=== PATIENT | female | born 1930 | race Caucasian/White ===

== ENCOUNTER 2016-07-01 14:06 | Inpatient (IN) | payer MEDICARE, OTHER ==
[~2016-07-01] VITALS: Ht 158.8 cm; Wt 54.8 kg
[2016-07-01 14:23] VITALS: BP 138/70; RESP 16; O2SAT 97
[2016-07-01 15:16] LABS: BASOPHILS % (AUTO) 0.7 % (0-3); EOSINOPHILS % (AUTO) 1.1 % (0-5); MONOCYTES % (AUTO) 5.6 % (4-12); Mean Corpuscular Hemoglobin 28.7 pg (27.0-35.0); Mean Corpuscular Volume 85.8 fL (81-100); NEUTROPHILS % (AUTO) 68.8 % (40-74); Platelet Count 141 bil/L (150-400)
[2016-07-01 16:00] LABS: Magnesium 2.2 mg/dL (1.6-2.6)
[2016-07-01 16:01] LABS: TROPONIN T 0.046 ug/L (0.0-0.011)
--- NOTE | 2016-07-01 16:51 | ED.REPORT ---
HPI-General Illness Date of Service Jul 01, 2016 ED Provider: Maged Candelaria MD The patient is an 86 year old female with history of atrial fibrillation on Coumadin, who presents to the emergency department complaining of dysphagia that has been worsening over the last 3 weeks. She has been evaluated by her PCP 4 times since onset. Her symptoms have continued to worsen. She has also noticed shortness of breath, nausea, vomiting, chills, fatigue, and recent weight loss. She denies chest pain or fever. She has an appointment with an ENT specialist Dr. Broderick on Monday. Nursing Notes Stated Complaint: TROUBLE SWALLOWING- SENT BY [facility] Chief Complaint: ENT & Mouth Nursing Notes Reviewed: Yes Allergies: Coded Allergies: atenolol (Verified Allergy, Severe, shortness of breath and angina, ) able to take tenormin prednisone (Verified Allergy, Severe, hallucinations,dementia, 07/01/16) pregabalin (Verified Allergy, Severe, all side effects listed, 07/01/16) abciximab (Verified Allergy, Intermediate, rash, 07/01/16) Scheduled Atenolol (Tenormin) 25 Mg Tablet 25 MG PO DAILY Atorvastatin (Lipitor) 10 Mg Tab 10 MG PO HS Cyanocobalamin (Vitamin B-12) (Vitamin B-12) 1,000 Mcg Tablet 1,000 MCG PO DAILY Digoxin (Digoxin) 250 Mcg Tablet 250 MCG PO QPM Folic Acid/Multivits-Min/Lut (Multi-Vitamin Gummies) 1 Each Tab.chew 1 EACH PO DAILY Furosemide (Furosemide) 40 Mg Tablet 200 MG PO DAILY Levothyroxine (Levothyroxine) 50 Mcg Tablet 50 MCG PO QAM Potassium Chloride ER (Potassium Chloride ER) 10 Meq Tablet 20 MEQ PO DAILY TAKE WITH FOOD Ramipril (Ramipril) 5 Mg Capsule 5 MG PO DAILY Ranitidine (Ranitidine) 150 Mg Capsule 150 MG PO BIDWM Warfarin Sodium (Warfarin Sodium) 1 Mg Tablet 0.5 MG PO DIRECTED Take 1/2 tablet daily x 2 days, then skip one day, then daily again for 2 days Scheduled PRN Hydrocodone-Acetaminophen 5-325 mg (Hydrocodone-Acetaminophen 5-325 mg) 1 Each Tablet 1-2 TABLET PO Q8H PRN PRN For Pain Ondansetron (Ondansetron) 4 Mg Tablet 4-8 MG PO Q4H PRN PRN For Nausea/Vomiting General Time Seen by MD: 16:49 Chief Complaint Other (dysphagia) Hx Obtained From: Patient Arrived By: Walk-in Sudden in Onset?: No Onset Occurred: More than a week ago... Symptom Duration: Since onset Quality: Painful Severity: Current: Mild Severity: Maximum: Mild Recent Healthcare: No recent hospitalization, Recent doctor visit Similar Sx Previous: No Past Medical History Past Medical History Reports: Atrial fibrillation Past Surgical History Reports: CABG Family History Noncontributory Smoking History Unknown if Ever Smoker Social History Other Social History: Good social support, Local resident Ambulatory Status Independent Review of Systems Full Review of Systems Constitutional: Reports: Chills, Fatigue, Weakness - generalized, Denies: Fever Respiratory: Reports: Shortness of breath Cardiovascular: Denies: Chest pain GI: Reports: Dysphagia, Nausea, Vomiting Neurologic: Reports: Weakness Complete sys rev & neg: except as marked. Physical Exam Vital Signs Vital Signs Date Time Temp Pulse Resp B/P Pulse Ox O2 Delivery O2 Flow Rate FiO2 07/01/16 14:23 36.0 64 16 138/70 97 Room Air Initial VS: Reviewed Head / Eyes: Atraumatic, Normocephalic, PERRL Abdomen / GI: Soft, Non-tender, No guarding, No rebound, No distention Lymphatic: No lymphadenopathy Extremities: Vascular intact, Neuro intact Skin: Warm, Dry, No cyanosis Neurologic: Alert, Oriented, Nonfocal Psychiatric: Mood/affect normal, Behavior normal, Normal thought content General/Constitutional: Awake, Alert Appearance / Presentation: Positive: Pale ENT: Airway patent Mouth: Positive: Mucous membranes dry Neck: Supple, No meningismus, Full range of motion, No swelling, Non-tender, No masses Respiratory / Chest: Atraumatic, Breath sounds NL, No respiratory distress, No rales, No rhonchi, No wheezing Well healed sternotomy scar. Cardiovascular: Heart rate NL, Regular rhythm, Heart sounds NL, Cap refill not delayed, Peripheral circulation NL Lower Extremity / Pelvis / MS: Neurologic intact, Vascular intact Trace pitting edema. No unilateral calf swelling or tenderness. Interpretation & Diagnostics Lab Results Interpretation Result Diagram: 07/01/16 1512 07/01/16 2036 Test 07/01/16 15:12 07/01/16 15:13 White Blood Count 4.5th/mm3 (3.8-10.1) Red Blood Count 3.38mil/mm3 (3.90-5.20) Hemoglobin 9.7g/dL (12.0-15.6) Hematocrit 29.0% (35.0-46.0) Mean Corpuscular Volume 85.8fL (81-100) Mean Corpuscular Hemoglobin 28.7pg (27.0-35.0) Mean Corpuscular Hemoglobin Concent 33.4% (32.0-37.0) Red Cell Distribution Width 15.6% (12.3-15.4) Platelet Count 141bil/L (150-400) Neutrophils (%) (Auto) 68.8% (40-74) Lymphocytes (%) (Auto) 23.8% (14-46) Monocytes (%) (Auto) 5.6% (4-12) Eosinophils (%) (Auto) 1.1% (0-5) Basophils (%) (Auto) 0.7% (0-3) Prothrombin Time 16.6sec (8.1-12.5) Prothromb Time International Ratio 1.54ratio Hold Blue Top Tube Received (Received) Lactic Acid Level 1.0mmol/L (0.4-2.0) Pro-B-Type Natriuretic Peptide 5392pg/mL (0-738) Hold Red Top Tube Received (Received) Hold Cornell Top Tube Received (Received) Digoxin Level 2.1nG/mL (0.9-2.0) ECG Interpretation ECG Interpretation: Atrial fibrillation with a rate of 64 bpm LBBB No prior available for comparison Time: 15:13 Interpreted by: ED physician X-Ray Chest Interpretation Chest Xray Interpretation: IMPRESSION: No acute cardiopulmonary findings. Dictated by: Cynthia Magallanes M.D. on 07/01/2016 at 17:25 Re-Eval/Medical Decision Med Decision/Clinical Course The patient is an 86 year old female with history of atrial fibrillation on Coumadin, who presents to the emergency department complaining of dysphagia that has been worsening over the last 3 weeks. She has been evaluated by her PCP 4 times since onset. Her symptoms have continued to worsen. She has also noticed shortness of breath, nausea, vomiting, chills, fatigue, and recent weight loss. She denies chest pain or fever. She has an appointment with an ENT specialist Dr. Broderick on Monday. Upon arrival patient is afebrile with stable vital signs though appears significantly dehydrated, generally unwell and cachectic. CXR: Obtained, reviewed and interpreted by myself shows no evidence of acute infiltrates, effusions or pneumothorax. Cardiac and mediastinal silhouette normal. No bony or soft tissue abnormalities. LABS: No leukocytosis with WBC 4.5, anemic hct 29, Na 131, K 5.7, BUN 90, creat 5.06, transaminases are nl , positive troponin of .045. CXR negative Given patient's profound dehydration and evidence of acute renal failure I initiated IV fluid resuscitation with 2 L of normal saline. While her potassium is somewhat elevated we will observe closely as we replace fluids and I do not see any indication to immediately administer calcium gluconate and her potassium lowering medications. CT scan of the abdomen and pelvis was obtained as below: 1. No hydronephrosis, nephrolithiasis, hydroureter, or ureterolithiasis. 2. No acute intra-abdominal findings. Normal appendix. 3. Cholelithiasis. No findings to suggest choledocholithiasis or acute cholecystitis. 4. Simple appearing right renal cyst which is incompletely characterized in the absence of contrast. 5. Subcentimeter right mid pole hyperdense renal cyst. Cystic neoplasm cannot be excluded. If further characterization is warranted, consider renal ultrasound. 6. Aortic atherosclerosis. Cause of patient's acute renal failure is not entirely clear. I suspect that this is likely largely related to severe dehydration though additional causes cannot immediately be ruled out. I see no evidence of hydronephrosis that would explain the elevation of her kidney function tests. Of note troponin is elevated though this is difficult to interpret in the setting of the patient's renal failure. Troponins will be trended and at this time EKG demonstrates no STEMI. Patient discussed with admitting hospitalist and transferred in stable condition for further workup and management. Source of Hx: Old records, Family Time of Eval: 17:07 Re-Evaluation/Progress Note: Discussed plan for admission. All questions were addressed. Consultation : Referral / Consult Name: Blaine Maciel MD Consulted With: Hospitalist Requested Call at: 17:05 Call Returned at: 17:48 Bead Filler: Will see patient, Agrees with eval, Agrees with plan, Accepts admit Counseled Regarding: Diagnosis, Lab results, Need for admission Discharge & Departure Primary Impression: Acute renal failure Acute renal failure type: unspecified Qualified Code: N17.9 - Acute kidney failure, unspecified Additional Impressions: Elevated troponin Severe dehydration Dysphagia Dysphagia type: unspecified Qualified Code: R13.10 - Dysphagia, unspecified Weight loss Failure to thrive Failure to thrive age range: in adult Qualified Code: R62.7 - Adult failure to thrive Hyperkalemia Generalized weakness Elevated BUN Elevated serum creatinine Disposition: ADMITTED TO HOSPITAL Discharge Condition All VS Reviewed: Yes Condition: Stable Referrals: Sridhar Mckeon MD (PCP) Cisco Broderick MD Crit Care Except Billable Proc Time Spent: 135-164 minutes Services Performed: Patient management by me, Time spent at bedside, Reviewing test results, Reviewing imaging, Discussing patient care, Documentation in record, Time with fam/surrogate Scribe Attestation Portions of this note were transcribed by Lauren Tolentino. I, Dr. Candelaria personally performed the history, physical exam and medical decision-making; I reviewed and confirmed the accuracy of the information in the transcribed note. Signed by: Itzel Berger, 07/01/2016 and 1800. copies to: Sridhar Mckeon MD; Cisco Broderick MD, Beck O MD Jul 01, 2016 16:51 Lauren Tolentino Jul 01, 2016 17:06
[2016-07-01] MEDS ORDERED: 0.9% Sodium Chloride 1,000 ML IV ONE (17:05)
[2016-07-01] MEDS ORDERED: Alum-Mag Hydrox-Simeth 30 mL Suspension PO PRN (17:05)
--- NOTE | 2016-07-01 17:28 | DRSVH ---
PROCEDURE: X-RAY CHEST, TWO VIEWS ([id number]) INDICATIONS: sob TECHNIQUE: 2 views of the chest were acquired. COMPARISON: None. FINDINGS: Surgical changes and devices: Patient is status post median sternotomy and valvular replacement. Lungs and pleura: No pleural effusions or pneumothorax. Lungs are clear. Mediastinum: Mediastinal contours are normal. Heart size is normal. Bones and chest wall: No suspicious bony abnormalities. Soft tissues appear unremarkable. IMPRESSION: No acute cardiopulmonary findings. Dictated by: Cynthia Magallanes M.D. on 07/01/2016 at 17:25 Approved by: Cynthia Magallanes M.D. on 07/01/2016 at 17:27
[2016-07-01] MEDS: Ondansetron 2 mg/mL 2 mL Inj IVPUSH PRN (17:32)
[2016-07-01] MEDS ORDERED: RANI150C4 PO (17:47)
[2016-07-01] MEDS ORDERED: LEVO50TA6 PO (17:47)
[2016-07-01] MEDS ORDERED: RAMI5CAP PO (17:47)
[2016-07-01] MEDS ORDERED: WARF1TAB6 PO (17:47)
[2016-07-01] MEDS ORDERED: POTA10TA12 PO (17:47)
[2016-07-01] MEDS ORDERED: ATRV10T PO (17:47)
[2016-07-01] MEDS ORDERED: DIGO250T72 PO (17:47)
[2016-07-01] MEDS ORDERED: HYDR-4003 PO (17:47)
[2016-07-01] MEDS ORDERED: ONDA-53 PO (17:47)
[2016-07-01] MEDS ORDERED: ATEN-154 PO (17:49)
[2016-07-01] MEDS: 0.9% Sodium Chloride 1,000 ML IV ONE ×2 (17:50→23:00)
[2016-07-01] MEDS ORDERED: CYAN10008 PO (17:51)
[2016-07-01] MEDS ORDERED: FOLI-89 PO (17:51)
[2016-07-01] MEDS ORDERED: FURO40TA4 PO (18:02)
[2016-07-01 18:05] VITALS: BP 179/51; PULSE 57; RESP 16; O2SAT 100
[2016-07-01 18:19] LABS: INR 1.54 ratio
--- NOTE | 2016-07-01 18:25 | DRSVH ---
PROCEDURE: CT KUB ([id number]) INDICATIONS: assess for hydronephrosis, renal mass TECHNIQUE: Noncontrast 5 mm thick sections acquired from the diaphragms to the symphysis. 5 mm thick coronal an d sagittal reformats were then performed. For radiation dose reduction, the following was used: aut omated exposure control, adjustment of mA and/or kV according to patient size. COMPARISON: FINDINGS: Image quality: Excellent. Lung bases: Lung bases are clear. Heart size is normal. Urinary system: The kidneys are symmetric in size. Cortical scarring is present at the upper pole of the left kidney suggesting prior infarct or infection. There is trace bilateral perinephric fat stran ding. No hydronephrosis. No nephrolithiasis. A low density exophytic mass is present of the lower bernie e of the right kidney. Some of the renal pyramids are slightly hyperdense raising the suspicion for m edullary nephrocalcinosis. A 6 mm in diameter hyperdense cyst is present within the midpole the right kidney (series 2, image 19). This was not visualized on the comparison study dated 11/12/09. No hydroureter or ureterolithiasis. The uterus is nonvisualized and may be surgically absent. Other solid organs: Liver and spleen are normal in size. A 10 mm an 11 mm calcified gallstone are pr esent within the gallbladder fundus. No gallbladder wall thickening or pericholecystic fluid. Pancrea s is normal in contours. No adrenal nodules. Peritoneum and bowel: Unenhanced bowel loops demonstrate normal wall thickness and caliber. The adolfo endix is thin walled. There are scattered sigmoid diverticula. No evidence for diverticulitis. No antonina e fluid or air. Nodes and vessels: No retroperitoneal or mesenteric adenopathy by size criteria. Aorta and inferior vena cava are normal in caliber. There are scattered atheromatous calcifications throughout the aor ta and iliac arteries bilaterally. Abdominal wall: No ventral hernias. Pelvis: No free pelvic fluid. No inguinal hernias or adenopathy. Bones: No suspicious bony lesions. No vertebral body compression fractures. IMPRESSION: 1. No hydronephrosis, nephrolithiasis, hydroureter, or ureterolithiasis. 2. No acute intra-abdominal findings. Normal appendix. 3. Cholelithiasis. No findings to suggest choledocholithiasis or acute cholecystitis. 4. Simple appearing right renal cyst which is incompletely characterized in the absence of contrast. 5. Subcentimeter right mid pole hyperdense renal cyst. Cystic neoplasm cannot be excluded. If further characterization is warranted, consider renal ultrasound. 6. Aortic atherosclerosis. Dictated by: Cynthia Magallanes M.D. on 07/01/2016 at 18:14 Approved by: Cynthia Magallanes M.D. on 07/01/2016 at 18:23
[2016-07-01] MEDS ORDERED: Polyethylene Glycol (PEG) 17 Gm Powder PO PRN (18:50)
[2016-07-01] MEDS ORDERED: Senna-Docusate 8.6-50 mg Tablet PO PRN (18:50)
[2016-07-01 19:05] VITALS: BP 185/65; PULSE 61; RESP 19; O2SAT 99
--- NOTE | 2016-07-01 20:24 | NUR ---
HR: pt admitted in the ER, arrived to [facility] [place] at apprx 1900. finished IV bolus. post void residual 125mls X1. tele SR maura dips down to the 30's for a few seconds, mostly 50's to 60's. will continue to monitor.
[2016-07-01 20:51] VITALS: BP 162/60; PULSE 52; RESP 18; O2SAT 100
[2016-07-01 21:31] LABS: Magnesium 2.1 mg/dL (1.6-2.6); Phosphorus 4.8 mg/dL (2.5-4.9)
--- NOTE | 2016-07-01 21:33 | PCM.HPMED ---
Subjective Date of Service Jul 01, 2016 Primary Provider: Admitting Physician: Blaine Maciel MD Primary Care Physician: Sridhar Mckeon MD Attending Physician: Blaine Maciel MD Admit Status: From the Emergency Department, Full Admit Chief Complaint: Dysphagia/3 weeks Poor oral intake/3 weeks Rectal bleeding/1 day History of Present Illness: 86-year-old lady with past medical history of CAD status post CABG and stent, afib on warfarin ,gout, neuropathy came to emergency room due to dysphagia and poor oral intake of 3 weeks. She states she has dysphagia for the last 3 weeks in which food and medications will get stuck in her throat ( she points to mid neck) . Drinking water seems to help. She has been having poor oral intake for the last 3 weeks and no taking any medications for last 2 days. She was seen by her PCP 3 times and was treated for GERD but no improvement.no Imaging done outpatient. She states she sometimes regurgitates food that was stuck in her throat. She was referred to ENT and has an appointment with Dr Broderick on Monday She had an episode of rectal bleeding yesterday. Bleeding was fresh blood. She has on and off fresh rectal bleeding for the Last 1 year. Last colonoscopy was 10 years ago. ED course : Initial vitals unremarkable but high BP afterwards. Exam unremarkable except signs of dehydration. Labs remarkable for acute kidney failure with cr 5.06,BUN 90,bicarbonate 13,k 5.7 ,Na 131,EKG a fib at 64 with LBBB unchanged from prior ekg,trop 0.046, anemia Hb 9.7 1 L NS given,CT KUB negative for hydronephrosis Hospitalist service requested for admission for acute kidney failure Review of Systems: A comprehensive review of systems performed, pertinent positives and negatives included in history of present illness Allergies Coded Allergies: atenolol (Verified Allergy, Severe, shortness of breath and angina, ) able to take tenormin prednisone (Verified Allergy, Severe, hallucinations,dementia, 07/01/16) pregabalin (Verified Allergy, Severe, all side effects listed, 07/01/16) abciximab (Verified Allergy, Intermediate, rash, 07/01/16) Home Medications DID NOT TAKE ANY OF HER MEDICATION FOR THE LAST 2 DAYS DUE TO DYSPHAGIA Synthroid 50 MCG daily Lasix 40 mg by mouth daily, gabapentin 100 mg a day KCl 10 mg by mouth daily Digoxin 0.25 mg daily,last dose 2 days ago Pravastatin 10 mg by mouth daily ramipril ranitidine recently started warfarin PMH CAD status post CABG and stent, afib on warfarin , gout, neuropathy Surgical History Hysterectomy CABG 1979 Cardiac Stent 1999 Resection of ileium for hyperlipidemia Family History Reviewed and unremarkable Social History Hx Alcohol Use: Yes (''rarely"- a glass of wine/month) Hx Substance Use: No Smoking Status: Former Smoker (quit 1974) Exam Vital Signs Vital Sign - Last Date Time Temp Pulse Resp B/P Pulse Ox O2 Delivery O2 Flow Rate FiO2 07/01/16 20:51 36.3 52 18 162/60 100 Room Air Exam Gen. patient is lying comfortably in hospital bed HEENT: Head is normocephalic atraumatic, dry tongue and buccal mucosa Lungs clear to auscultation bilaterally Heart regular rate and rhythm without murmurs gallops or rubs Abdomen soft nontender without hepatosplenomegaly Extremities pulses are present dorsalis pedis posterior tibialis and radial. tSkin is warm and dry there are no rashes, Psych alert and oriented to person place and time Neuro cranial nerves II through XII are grossly intact Lymph: There is no lymphadenopathy appreciated in the cervical supra infraclavicular regions : no cuevas Lab and Diagnostics Result Diagram: 07/01/16 1512 07/01/16 1512 X-Rays, CTs and MRIs PROCEDURE: CT KUB ([id number]) INDICATIONS: assess for hydronephrosis, renal mass TECHNIQUE: Noncontrast 5 mm thick sections acquired from the diaphragms to the symphysis. 5 mm thick coronal and sagittal reformats were then performed. For radiation dose reduction, the following was used: automated exposure control, adjustment of mA and/or kV according to patient size. COMPARISON: FINDINGS: Image quality: Excellent. Lung bases: Lung bases are clear. Heart size is normal. Urinary system: The kidneys are symmetric in size. Cortical scarring is present at the upper pole of the left kidney suggesting prior infarct or infection. There is trace bilateral perinephric fat stranding. No hydronephrosis. No nephrolithiasis. A low density exophytic mass is present of the lower pole of the right kidney. Some of the renal pyramids are slightly hyperdense raising the suspicion for medullary nephrocalcinosis. A 6 mm in diameter hyperdense cyst is present within the midpole the right kidney (series 2, image 19). This was not visualized on the comparison study dated 11/12/09. No hydroureter or ureterolithiasis. The uterus is nonvisualized and may be surgically absent. Other solid organs: Liver and spleen are normal in size. A 10 mm an 11 mm calcified gallstone are present within the gallbladder fundus. No gallbladder wall thickening or pericholecystic fluid. Pancreas is normal in contours. No adrenal nodules. Peritoneum and bowel: Unenhanced bowel loops demonstrate normal wall thickness and caliber. The appendix is thin walled. There are scattered sigmoid diverticula. No evidence for diverticulitis. No free fluid or air. Nodes and vessels: No retroperitoneal or mesenteric adenopathy by size criteria. Aorta and inferior vena cava are normal in caliber. There are scattered atheromatous calcifications throughout the aorta and iliac arteries bilaterally. Abdominal wall: No ventral hernias. Pelvis: No free pelvic fluid. No inguinal hernias or adenopathy. Bones: No suspicious bony lesions. No vertebral body compression fractures. IMPRESSION: 1. No hydronephrosis, nephrolithiasis, hydroureter, or ureterolithiasis. 2. No acute intra-abdominal findings. Normal appendix. 3. Cholelithiasis. No findings to suggest choledocholithiasis or acute cholecystitis. 4. Simple appearing right renal cyst which is incompletely characterized in the absence of contrast. 5. Subcentimeter right mid pole hyperdense renal cyst. Cystic neoplasm cannot be excluded. If further characterization is warranted, consider renal ultrasound. 6. Aortic atherosclerosis. Dictated by: Cynthia Magallanes M.D. on 07/01/2016 at 18:14 12-lead ECG afib at 64 with LBBB Assessment & Plan 86-year-old lady with past medical history of CAD status post CABG and stent, afib on warfarin ,gout, neuropathy came to emergency room due to dysphagia and poor oral intake of 3 weeks. # Acute kidney failure,poa -Due to poor intake due to dysphagia -1L Ns given in ED,will give 1 more NS then 150ml/h -CT KUB negative for hydronephrosis -hold ramipril ,laisx ,kcl and digoxin -may consider nephrology consult in am if no significant improvement of kidney function -monitor I/O # hyperkalemia/metabolic acidosis -due to above -mx as above -no ekg changes of hyperkalemia # Digoxin toxicity,acute -due to #1 -dig level 2.1 -last dig dose 2 days ago,she has PVCs and HR in 50's -watch out for arrythmia -no indication for Digibind for now -monitor electrolytes closely and replete # Dysphagia,subacute,poa -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 -npo -barium swallow in am -may consider GI consult for EGD and +/- colonoscopy after barium study #Elevated troponin -likley due to RICKY,denies chest pain ,no ekg changes # lower Gi bleed -probably due to hemorroids -consider GI consult in am # anemia of blood loss -due to above # CAD s/p CABG and stents -hold po meds for now given npo # AFib on warfarin -hold warfarin given npo and lower GI bleed -hold dig given toxicity # hypothyroidism -TFT WNL -hold synthroid discussed code she says she has living will and she is DNR/DNI names her daughter La as POA tel [phone] Patient admitted under inpatient status with expected length of stay > 2 midnights for severity of present symptoms, complexities of treatment plan and risk for adverse events Time spent 60 minutes copies to: Sridhar Mckeon MD, Melaku MD Jul 01, 2016 21:33
[2016-07-01 21:39] LABS: TROPONIN T 0.049 ug/L (0.0-0.011)
[2016-07-01 22:18] LABS: APPEARANCE,URINE HAZY (CLEAR,HAZY); COLOR,URINE STRAW (YELLOW); OCCULT BLOOD,URINE TRACE (NEGATIVE); UROBILINOGEN,URINE NORMAL (NORMAL)
[2016-07-02] VITALS (12 sets, daily range): BP systolic 139–156; BP diastolic 47–70; PULSE 4–66; RESP 13–19; O2SAT 95–99
[2016-07-02] MEDS: 0.9% Sodium Chloride 1,000 ML IV SCH ×2 (00:26→01:30)
[2016-07-02] MEDS: cefTRIAXone Inj 1,000 MG in Dextrose 5% Minibag Plus 50 ML IV SCH ×2 (00:41→21:56)
[2016-07-02 06:22] LABS: BASOPHILS % (AUTO) 0.6 % (0-3); EOSINOPHILS % (AUTO) 3.1 % (0-5); MONOCYTES % (AUTO) 8.5 % (4-12); Mean Corpuscular Hemoglobin 28.7 pg (27.0-35.0); Mean Corpuscular Volume 87.3 fL (81-100); NEUTROPHILS % (AUTO) 58.2 % (40-74); Platelet Count 121 bil/L (150-400)
[2016-07-02 06:55] LABS: Magnesium 2.1 mg/dL (1.6-2.6)
[2016-07-02] MEDS: Dextrose 5% 0.45% NaCl 1,000 ML IV SCH ×3 (07:58→18:03)
--- NOTE | 2016-07-02 09:17 | PCM.PNMED ---
Subjective Date of Service Jul 02, 2016 Subjective - Pt seen and examined this morning. AAO x 3. Not in acute distress - c/o mild generalized weakness. - No acute events over night. Exam Vital Signs Vital Sign - Last Date Time Temp Pulse Resp B/P Pulse Ox O2 Delivery O2 Flow Rate FiO2 07/02/16 08:47 36.5 64 19 149/70 98 Room Air Intake and Output 07/01/16 07/01/16 07/02/16 Cumulative From/Thru 15:00 23:00 07:00 07/01/16 14:23 - 07/02/16 06:42 Intake Total 1593 ml 1593 ml Output Total 450 ml 450 ml Balance 1143 ml 1143 ml Intake Oral 0 ml 0 ml IV Total 1593 ml 1593 ml Output Urine Total 450 ml 450 ml Exam Gen. patient is lying comfortably in hospital bed HEENT: Head is normocephalic atraumatic, dry tongue and buccal mucosa Lungs clear to auscultation bilaterally Heart regular rate and rhythm without murmurs gallops or rubs Abdomen soft nontender without hepatosplenomegaly Extremities pulses are present dorsalis pedis posterior tibialis and radial. tSkin is warm and dry there are no rashes, Psych alert and oriented to person place and time Neuro cranial nerves II through XII are grossly intact Lymph: There is no lymphadenopathy appreciated in the cervical supra infraclavicular regions IVs and Medications Medications Reviewed: Medications were reviewed in detail Lab and Diagnostics Result Diagram: 07/02/16 0550 07/02/16 0550 X-Rays, CTs and MRIs PROCEDURE: CT KUB ([id number]) INDICATIONS: assess for hydronephrosis, renal mass TECHNIQUE: Noncontrast 5 mm thick sections acquired from the diaphragms to the symphysis. 5 mm thick coronal and sagittal reformats were then performed. For radiation dose reduction, the following was used: automated exposure control, adjustment of mA and/or kV according to patient size. COMPARISON: FINDINGS: Image quality: Excellent. Lung bases: Lung bases are clear. Heart size is normal. Urinary system: The kidneys are symmetric in size. Cortical scarring is present at the upper pole of the left kidney suggesting prior infarct or infection. There is trace bilateral perinephric fat stranding. No hydronephrosis. No nephrolithiasis. A low density exophytic mass is present of the lower pole of the right kidney. Some of the renal pyramids are slightly hyperdense raising the suspicion for medullary nephrocalcinosis. A 6 mm in diameter hyperdense cyst is present within the midpole the right kidney (series 2, image 19). This was not visualized on the comparison study dated 11/12/09. No hydroureter or ureterolithiasis. The uterus is nonvisualized and may be surgically absent. Other solid organs: Liver and spleen are normal in size. A 10 mm an 11 mm calcified gallstone are present within the gallbladder fundus. No gallbladder wall thickening or pericholecystic fluid. Pancreas is normal in contours. No adrenal nodules. Peritoneum and bowel: Unenhanced bowel loops demonstrate normal wall thickness and caliber. The appendix is thin walled. There are scattered sigmoid diverticula. No evidence for diverticulitis. No free fluid or air. Nodes and vessels: No retroperitoneal or mesenteric adenopathy by size criteria. Aorta and inferior vena cava are normal in caliber. There are scattered atheromatous calcifications throughout the aorta and iliac arteries bilaterally. Abdominal wall: No ventral hernias. Pelvis: No free pelvic fluid. No inguinal hernias or adenopathy. Bones: No suspicious bony lesions. No vertebral body compression fractures. IMPRESSION: 1. No hydronephrosis, nephrolithiasis, hydroureter, or ureterolithiasis. 2. No acute intra-abdominal findings. Normal appendix. 3. Cholelithiasis. No findings to suggest choledocholithiasis or acute cholecystitis. 4. Simple appearing right renal cyst which is incompletely characterized in the absence of contrast. 5. Subcentimeter right mid pole hyperdense renal cyst. Cystic neoplasm cannot be excluded. If further characterization is warranted, consider renal ultrasound. 6. Aortic atherosclerosis. Dictated by: Cynthia Magallanes M.D. on 07/01/2016 at 18:14 12-lead ECG afib at 64 with LBBB Assessment & Plan 86-year-old lady with past medical history of CAD status post CABG and stent, afib on warfarin ,gout, neuropathy came to emergency room due to dysphagia and poor oral intake of 3 weeks. 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 - npo - barium swallow in am - may consider GI consult for EGD and +/- colonoscopy after barium study # Elevated troponin - likley due to RICKY,denies chest pain ,no ekg changes # lower Gi bleed - probably due to hemorrhoids - Hct down to 23.4 - Will transfuse 1 PRBC # anemia of blood loss - due to above # CAD s/p CABG and stents - hold po meds for now given npo # AFib on warfarin - hold warfarin given npo and lower GI bleed - hold dig given toxicity # hypothyroidism - TFT WNL - hold synthroid Code: DNR / DNI daughter La as POA tel [phone] Pain Evaluation: Adequate Pain Control VTE Prophylaxis: Sub-Q Heparin (Unfractionated) Resuscitation Status: DNR/DNI:Do Not Resuscitate/Intubate Carlos Collins MD Jul 02, 2016 09:17
[2016-07-02] MEDS ORDERED: 0.9% Sodium Chloride 250 ML IV ONE (09:20)
--- NOTE | 2016-07-02 12:13 | NUR ---
Social Work-initial assessment: Data:See initial assessment. Pt is a 86 y/o female who was admitted on 07/01/16 for acute renal failure per H&P. Pt's insurance is [employer] and PCP is Sridhar Mckeon MD. EMR Reviewed. SW met with pt at bedside to discuss discharge planning, SW role explained. Pt is alert and oriented x3. Pt resides at home with her grandson Anthony where she remains independent with basic ADLs. Pt's daughter lives close by as well. Pt does not drive and uses a fww at baseline. Pt has no HH or SNF history. Pt feels like she has enough help at home. Pt has no prison care insurance or VA benefits. SW discussed DPOA/ advanced directive, pt states she has completed this, SW encouraged a copy to be brought into the hospital. PT to have barium swallow completed, Per RN notes, pt has been up SBA in room. Pt informed SW that she is not going to be going to her PCP, but her daughters are already working on getting a new one set up for her. Pt does not anticipate any discharge needs. SW to follow for HH. Pt's family to provide transport home. SW provided phone number and plan on white board in room. SW will continue to follow. Assessment:pt who is independent at baseline. Plan:Pt to likely discharge home with grandson when medically stable. R/O HH services. SW will continue to follow. MARCOS Haas Addendum: 07/02/16 at 1218 by WILLIE ERVIN Amended: Links added.
--- NOTE | 2016-07-02 15:11 | NUR ---
NUTRITION ASSESSMENT: ASSESS:86 YO female admitted with acute renal failure related to dysphagia and poor oral intake for past 3 weeks. She states that food and medications get stuck in her throat ( she points to mid-neck) . Drinking water seems to help. She has been having poor oral intake for the last 3 weeks and not taking any medications for last 2 days. She was seen by her PCP 3 times and was treated for GERD, with no improvement. She states she sometimes regurgitates food that gets stuck in her throat. She was referred to ENT and has an appointment with Dr Broderick on Monday. She had an episode of rectal bleeding yesterday. Bleeding was fresh blood. She has on and off fresh rectal bleeding for the last year. Barium swallow ordered and is pending. PMHx:CAD status post CABG and stent, A-fib on warfarin, gout, neuropathy, hypothyroid. DIET:NPO. LABS: CO2 12, BUN 84, Cr 4.51, Alb 3.8., MEDICATIONS: Synthroid. NUTRITION FOCUSED PHYSICAL ASSESSMENT: GI symptoms / stool: No stool reported.Kilo: 16. Skin Integrity: No issues reported. ANTHROPOMETRICS: Current Wt: 50.4 kgBMI: 19.0 kg/m2. IBW: 51.1 kg (98.6% IBW) ESTIMATED NEEDS (DEHYDRATION, RICKY): Calories: 1260 - 1764 kcal (25 - 35 kcal / kg BW) Protein: 30 - 40 g protein (0.6 - 0.8 g / kg BW) Fluid: Approx. 1260 mL (25 mL / kg BW) NUTRITION DIAGNOSIS: 1) Inadequate oral intake related to chewing / swallowing difficulties, as evidenced by inability to tolerate oral intake past 3 weeks, barium swallow ordered and is pending. INTERVENTION: 1) Once diet advanced, will add supplements to trays. MONITOR/EVALUATE: Diet advance / tolerance, PO intake, labs, GI/nutrition status. Follow up per high nutrition risk guidelines.
--- NOTE | 2016-07-02 15:19 | NUR ---
Blood Transfusion Patient had a 1 unit PRBC at 1212. Patient showed no reaction. Vitals stable after 15 min. Transfusion ended at 1505. Vital stable after transfusion. No reaction.
[2016-07-02] MEDS: Ondansetron 2 mg/mL 2 mL Inj IVPUSH PRN (18:03)
[2016-07-02] MEDS: Heparin 5,000 Unit/mL Inj SUBQ SCH (20:02)
[2016-07-03] VITALS (8 sets, daily range): BP systolic 148–160; BP diastolic 55–69; PULSE 41–73; RESP 10–18; O2SAT 68–98
--- NOTE | 2016-07-03 00:38 | NUR ---
transfer: pt transferred to [facility] room 2030. technical support internship notified RN of pauses. Hospitalist notified, no new orders. pt's HR 24 for a few seconds, CCU charge, and hospitalist notified. initially pt stated she felt "fine", soon she started to stated she felt "funny", and she was not able to lay flat. pt transferred to room 2030, face to face report given to Mehnaz Weber on pcc.
--- NOTE | 2016-07-03 00:41 | NUR ---
Transfer to [facility] Patient noted on tele to be bradycardic in the 40s and 50s with frequent PVCs and bigeminy. Pauses up to 5 seconds. Patient brought to [facility] 2030 at 0005; report received at bedside. Second IV line started, external pacer pads placed. Monitoring via MP30. Patient denies chest pain; some shortness of breath present although patient states this has improved since earlier this evening. Dr. Zarate to bedside to assess patient. Continue close monitoring.
[2016-07-03] MEDS: Dextrose 5% 0.45% NaCl 1,000 ML IV SCH ×2 (01:16→08:50)
--- NOTE | 2016-07-03 06:27 | NUR ---
Tele Patient continues to be bradycardic through remainder of shift. A-fib with rates in the 40s and 50s and frequent PVCs. No further pauses or episodes of severe bradycardia. Patient's daughter at bedside. COntinue to monitor.
[2016-07-03] MEDS: Ondansetron 2 mg/mL 2 mL Inj IVPUSH PRN ×5 (06:52→23:43)
[2016-07-03] MEDS: Heparin 5,000 Unit/mL Inj SUBQ SCH ×2 (08:30→20:30)
[2016-07-03 09:36] LABS: BASOPHILS % (AUTO) 0.2 % (0-3); EOSINOPHILS % (AUTO) 3.4 % (0-5); Mean Corpuscular Hemoglobin 28.7 pg (27.0-35.0); Mean Corpuscular Volume 86.8 fL (81-100); NEUTROPHILS % (AUTO) 68.5 % (40-74); Platelet Count 95 bil/L (150-400)
[2016-07-03 09:51] LABS: Magnesium 1.8 mg/dL (1.6-2.6)
--- NOTE | 2016-07-03 14:50 | DRSVH ---
[facility] [address] [place] [address] Echocardiogram Report Name: GURWINDER BONE Turner e: 07/03/2016 Height: 63 in Hospital Exam Location: [facility] Weight: 119 lb Gender: Female BSA: 1.6 m2 : 1930 Age: 86 yrs BP: 148/65 mmHg Reason For Study: DYSRHYTHMIA, SOB Ordering Physician: Performed By: Sierra Zelaya Interpretation Summary The patient was in atrial fibrillation with controlled ventricular rate during the exam. The left ventricle is normal in size. Left ventricular wall thickness is mildly increased. The ejection fraction is estimated to be 50-55%. There is a mild dyssynchronous contraction pattern, consistent with a conduction abnormality. There is apical severe hypokinesis. This is unchanged compared to the previous study. The right ventricle is normal in size and function. The right ventricular systolic pressure is estimated at 58 mmHg assuming a right atrial pressure of 15 mm Hg. The IVC is dilated (diameter is greater than 2.1 cm) and it collapses less than 50% with a sniff. This suggests a high right atrial pressure of 15 mm Hg. Both atria are severely dilated. A secundum type atrial septal defect is present. The atrial septal defect is small. There is moderate to severe mitral regurgitation. There is an eccentric jet of mitral regurgitation that is directed posterior- laterial. This is unchanged compared to the previous study. Multiple liver cysts are noted. No other echocardiographic abnormalities seen. Procedure: A two-dimensional transthoracic echocardiogram with color flow and Doppler was performed. The study quality was technically adequate. Comparison is made with the echocardiogram of 09-09-15. The patient was in atrial fibrillation with controlled ventricular rate during the exam. Left Ventricle: The left ventricle is normal in size. Left ventricular wall thickness is mildly increased. The ejection fraction is estimated to be 50- 55%. There is a mild dyssynchronous contraction pattern, consistent with a conduction abnormality. There is apical severe hypokinesis. This is unchanged compared to the previous study. Right Ventricle: The right ventricle is normal in size and function. Atria: Both atria are severely dilated. Doppler evidence suggests a left to right interatrial shunt. A secundum type atrial septal defect is present. The atrial septal defect is small. Mitral Valve: The mitral valve leaflets appear mildly thickened, but open well. There is mild mitral annular calcification. There is moderate to severe mitral regurgitation. There is an eccentric jet of mitral regurgitation that is directed posterior-laterial. This is unchanged compared to the previous study. Aortic Valve: The aortic valve is trileaflet. The aortic valve is slightly calcified. The aortic valve opens well. No aortic regurgitation is present. Tricuspid Valve: The tricuspid valve leaflets are thin and pliable. There is moderate tricuspid regurgitation. The right ventricular systolic pressure is estimated at 58 mmHg assuming a right atrial pressure of 15 mm Hg. Pulmonic Valve: The pulmonic valve leaflets are thin and pliable; valve motion is normal. There is a trace or physiologic amount of pulmonic regurgitation. Great Vessels: The aortic root is normal size. The dimensions of the ascending aorta are normal. The pulmonary artery is normal size. The IVC is dilated (diameter is greater than 2.1 cm) and it collapses less than 50% with a sniff. This suggests a high right atrial pressure of 15 mm Hg. Pericardium/ Pleura There is no pericardial effusion. There is no pleural effusion. Multiple liver cysts are noted. MMode/2D Measurements & Calculations LVIDd: 4.9 cm LA dimension: 4.9 cm RA long axis LVOT diam: 2.0 cm LVIDs: 3.7 cm AoV Opening FS: 24.3 % LA A2 area: 31.0 cm RA area EPSS: 1.1 cm LA A4 area: 27.6 cm Ao root diam IVSd: 1.2 cm LA length (vol) : 26.9 cm LVPWd: 1.1 cm RA vol asc Aorta Diam LA vol: 104.4 ml : 89.8 ml LA vol index RA Ao Arch Diam (Prox : 57.9 mm/ Trans): 2.9 cm : 67.3 ml/m2 RVDd major : 5.7 cm LV juarez. diameter/BSA LV sys. diameter/BSA (cm/m^2): 3.1 (cm/m^2): 2.4 Doppler Measurements & Calculations Ao V2 max MV E max hua MV E/A: 2.5 TR max hua : 161.2 cm/sec : 95.2 cm/sec Med Peak E' Hua : 325.9 cm/sec Ao max PG MV A max hua TR max PG : 10.4 mmHg : 38.6 cm/sec E/E' med: 13.8 : 42.6 mmHg Ao mean PG MV P1/2t: 45.2 msec Lat Peak E' Hua PA V2 max MR ERO: 0.17 cm2 : 104.4 cm/sec LVOT Max Hua E/E' lat: 6.0 PA mean PG : 107.3 cm/sec E/e' average: 9.9 DURGA(I,D): 1.8 cm PA Accel Time sev ratio: 0.61 : 0.09 sec MV P1/2t max hua Ao V2 mean LV V1 max PG MR flow rate : 113.5 cm/sec Ao V2 VTI: 41.5 cm LV V1 VTI: 25.1 cm: 99.5 cm3/sec MVA(P1/2t): 4.9 cm2 MR PISA radius DURGA(V,D): 2.0 cm2 PA V2 mean DURGA indexed to BSA : 73.8 cm/sec (cm^2/m^2): 1.2 Reading Physician:02:49 PM
[2016-07-03] MEDS: Sodium Bicarb 8.4% Inj 150 MEQ in Dextrose 5% 1,000 ML IV SCH (15:49)
--- NOTE | 2016-07-03 16:26 | PCM.PNMED ---
Subjective Date of Service Jul 03, 2016 Subjective Patient reports that she is feeling better this morning. She denies SOB, chest pain, abdominal pain, and headache. She continues to have intermittent nausea but no vomiting. She has gotten up to the bathroom and states that she feels pretty good on her feet. Her swallow continues to be problematic for her and she does not have much appetite between her dysphagia and her nausea. Overnight, patient transferred down from [facility] to [facility] due to sustained bradycardia. Telemetry monitoring placed in the room. Exam Vital Signs Vital Sign - Last Date Time Temp Pulse Resp B/P Pulse Ox O2 Delivery O2 Flow Rate FiO2 07/03/16 15:31 36.5 64 10 156/63 68 Room Air Intake and Output 07/02/16 07/02/16 07/03/16 Cumulative From/Thru 15:00 23:00 07:00 07/01/16 14:23 - 07/03/16 06:55 Intake Total 1506 ml 1740 ml 4839 ml Output Total 650 ml 200 ml 1300 ml Balance 856 ml 1540 ml 3539 ml Intake Oral 0 ml 0 ml 0 ml IV Total 1162 ml 1740 ml 4495 ml Packed Cells 344 ml 344 ml Output Urine Total 650 ml 200 ml 1300 ml # Bowel Movements 0 0 Exam General: patient is laying comfortably in hospital bed, no acute distress HEENT: Head is normocephalic atraumatic, dry tongue and buccal mucosa, no oral thrush appreciated; PERRLA, EOMI, sclera anicteric Lungs clear to auscultation bilaterally Heart regular rate and rhythm without murmurs gallops or rubs Abdomen soft, nontender, nondistended, with normoactive bowel tones Extremities: Moderate non-pitting edema present in both lower extremities Pulses are present - dorsalis pedis posterior tibialis and radial. Skin is warm and dry there are no rashes. Psych: alert and oriented to person, place and time Neuro: cranial nerves are grossly intact, able to move all extremities grossly, normal speech : no cuevas IVs and Medications Medications Reviewed: Medications were reviewed in detail Lab and Diagnostics Result Diagram: 07/03/1651907/03/16519 X-Rays, CTs and MRIs PROCEDURE: CT KUB IMPRESSION: 1. No hydronephrosis, nephrolithiasis, hydroureter, or ureterolithiasis. 2. No acute intra-abdominal findings. Normal appendix. 3. Cholelithiasis. No findings to suggest choledocholithiasis or acute cholecystitis. 4. Simple appearing right renal cyst which is incompletely characterized in the absence of contrast. 5. Subcentimeter right mid pole hyperdense renal cyst. Cystic neoplasm cannot be excluded. If further characterization is warranted, consider renal ultrasound. 6. Aortic atherosclerosis. Dictated by: Cynthia Magallanes M.D. on 07/01/2016 at 18:14 Cardiac Echo Impressions Interpretation Summary The patient was in atrial fibrillation with controlled ventricular rate during the exam. The left ventricle is normal in size. Left ventricular wall thickness is mildly increased. The ejection fraction is estimated to be 50-55%. There is a mild dyssynchronous contraction pattern, consistent with a conduction abnormality. There is apical severe hypokinesis. This is unchanged compared to the previous study. The right ventricle is normal in size and function. The right ventricular systolic pressure is estimated at 58 mmHg assuming a right atrial pressure of 15 mm Hg. The IVC is dilated (diameter is greater than 2.1 cm) and it collapses less than 50% with a sniff. This suggests a high right atrial pressure of 15 mmHg. Both atria are severely dilated. A secundum type atrial septal defect is present. The atrial septal defect is small. There is moderate to severe mitral regurgitation. There is an eccentric jet of mitral regurgitation that is directed posterior- laterial. This is unchanged compared to the previous study. Multiple liver cysts are noted. No other echocardiographic abnormalities seen. Reading Physician:02:49 PM Assessment & Plan Patient is an 86-year-old female with a history of CAD status post CABG and stent, afib on warfarin, gout, neuropathy. She presented to [facility] due to dysphagia and poor oral intake of 3 weeks. Admitted for evaluation and management of RICKY. Hospital day #3 1. Acute kidney failure, present on admission, ongoing. - Most likely due to poor intake secondary to dysphagia. - Continue IV fluids at 100 ml/hr. - Dr. Portillo of nephrology has seen the patient and we appreciate her input. - Continue to monitor BMP. 2. Digoxin toxicity, acute, present on admission. - Likely secondary to her renal failure and fluid depleted status. - Dig level 2.1at admission. Holding digoxin at this time. - Will continue to follow lab value. - Continue telemetry. 3. Dysphagia, subacute, present on admission. - Consider pharyngeal pouch or esophageal mass. - Keep patient NPO at this time. - Barium swallow ordered and pending for tomorrow (07/04/16) AM. - If abnormality identified will consult GI for possible upper endoscopy. - Antiemetic available PRN nausea. 4. Elevated troponin, acute, present on admission. - Likely due to RICKY. - Continue telemetry. - Patient asymptomatic and will not continue to follow the lab value. Low threshold to repeat if patient has chest pain. 5. Possible lower GI bleed, acute, present on admission. - Concern for hemorrhoids. No other notable source of bleeding. - Has received 1 unit PRBC's during this admission. - Continue to monitor CBC. 6. Anemia secondary to lower GI bleed, acute, present on admission. - Treatment as above in #5. 7. CAD s/p CABG and stents - Holding her home medications including ASA, atorvastatin. 8. Atrial fibrillation on chronic anticoagulation, presume stable. - Holding anticoagulation due to concerns of lower GI bleed. - Holding digoxin secondary to toxicity. - Continue telemetry. 9. Hypothyroidism, chronic, presume stable. - Holding home synthroid as patient is NPO. - Antacid available PRN. - Tylenol available PRN mild pain, fever. - Melatonin available PRN insomnia. Disposition: awaiting further evaluation and determination of need for more invasive intervention such as upper endoscopy or esophageal surgery. Anticipate a few more days of admission. Pain Evaluation: Adequate Pain Control VTE Prophylaxis: Sub-Q Heparin (Unfractionated) VTE Mechanical Devices: Intermittant Pneumatic CD Resuscitation Status: DNR/DNI:Do Not Resuscitate/Intubate Attending Statement The patient was seen and examined together with Dr. Estevez on 07/03/2016 and I agree with the history, exam and plan as outlined in the note above. . Jackie Estevez DO Jul 03, 2016 16:26 César Bledsoe MD Jul 04, 2016 09:06
--- NOTE | 2016-07-03 17:05 | CONS ---
[address] [address] CONSULTATION REPORT PATIENT: GURWINDER BONE : 1930 MR#: [id number] ADMIT: 07/01/2016 JOB ID: [id number] DATE OF SERVICE: REQUESTING PHYSICIAN: César Bledsoe MD REASON FOR CONSULTATION: Management of abnormal kidney function. CHIEF COMPLAINT: Progressive weakness and difficulty swallowing. PRESENT ILLNESS: This is a very pleasant, 86-year-old, lady with significant past medical history of coronary artery disease status post CABG 37 years ago, chronic atrial fibrillation who presented to the hospital with a complaint of difficulty swallowing, poor oral intake and weakness. The patient started feeling sick over the past two months. She has had progressive difficulty swallowing. The symptoms worsened over the past three weeks also. She felt that the food and medications get stuck in her throat at the substernal area. The patient had lost at least 10 pounds over the past two months. Despite having poor oral intake, she remains taking all of her medications including Lasix, digoxin, potassium supplement, ramipril, atenolol and ranitidine. The patient was not able to swallow her pills two days prior to the admission. She has made the appointment to see the ENT on Monday. Patient endorsed she had an episode of rectal bleed one day prior to the admission. She has had intermittent bright red blood per rectum. She is not aware of having kidney disease. She came in with a BUN of 90, creatinine of 5.06. She denies using NSAIDs or Tylenol. The CAT scan of the abdomen did not show any nephrolithiasis or hydronephrosis. She received IV fluid, D5 half normal saline, 150 cc/hour. Her BUN and creatinine slowly came down to 63 and 3.4, respectively. The patient found to have gram-negative rods in the urine. However, she has no history of dysuria or hematuria. Per Dr. Bledsoe, she will have barium swallow tomorrow. PAST MEDICAL HISTORY: 1. Coronary artery disease status post CABG 37 years ago. 2. Hypertension. 3. Chronic atrial fibrillation. 4. Hypothyroid. 5. Dyslipidemia. 6. Gout. 7. Neuropathy. PAST SURGICAL HISTORY: 1. Status post CABG in 1979. 2. Status post cardiac stenting in 1999. 3. Hysterectomy. FAMILY HISTORY: No kidney disease in the family. SOCIAL HISTORY: She is a former smoker. Quit smoking in 1974. Denies current use of alcohol, tobacco, or illicit drugs. ALLERGIES: 1. ATENOLOL. 2. PREDNISONE. 3. PREGABALIN. 4. ABCIXIMAB. REVIEW OF SYSTEMS: A 14-point review of systems was performed. PHYSICAL EXAM: Vitals: Temperature 36.6, pulse 64, respiratory rate 16, blood pressure 160/67, O2 sat 98% on room air. General appearance: Chronically ill-looking, frail appearance. HEENT: Mild pallor. No icteric sclera. Dry mucous membranes. Atraumatic. PERRLA. Mild JVD. No lymphadenopathy. No thyroid enlargement. Heart: Regular rhythm. Normal S1, S2. No murmurs, rubs, or gallops. Lungs: Clear to auscultation bilaterally. No wheezing. No rhonchi. Good air entry. Abdomen is soft, active bowel sounds. Nontender. Nondistended. No hepatosplenomegaly. Extremities: No edema, cyanosis or clubbing of the fingers. Pedal pulses 2+. Skin: No rashes. No excoriations. LABORATORY: Sodium 138, potassium 4.0, chloride 109, bicarb 11. BUN 36, creatinine 3.49, glucose 178, calcium 8.3, magnesium 1.8. Troponin 0.066. Albumin 3.3, hemoglobin 8.5, INR 1.54. Urine specific gravity 1.015, pH 5.0, RBC 3-10, WBC , digoxin level 2.1. Lactic acid 1.0. Echocardiogram was done this morning pending for the results. Chest x-ray showed no acute cardiopulmonary findings. CT of the abdomen showed no hydronephrosis. No kidney stones. No hydroureter, positive for cholelithiasis, no evidence of acute cholecystitis, right renal cyst noted. Subcentimeter right mid pole hyperdense renal cyst. Aortic atherosclerosis. ASSESSMENT: 1. Acute kidney injury. Unknown baseline serum creatinine. She presented with a BUN and creatinine of 90 and 5.06 after IV fluid hydration. Her serum creatinine came down to 3.49. Of note, the patient has had difficulty swallowing poor oral intake over the past two months. She had lost at least 10 pounds. Despite having poor oral intake, she was taking diuretics and antihypertensive medications up until two days prior to the admission. Of note, the patient was also taking ramipril. The etiology of acute kidney injury is rather multifactorial including prerenal azotemia, possibly component of acute tubular necrosis. 2. Hyperkalemia secondary to renal insufficiency, metabolic acidosis, possible digoxin toxicity, medication-induced (ramipril). 3. Anion gap metabolic acidosis likely due to uremia. Her lactate level was 1.0. 4. Progressive dysphagia, need to rule out malignancy. 5. Normocytic anemia with underlying disease of chronic rectal bleed. 6. Underlying disease of coronary artery disease status post coronary artery bypass graft. 7. Chronic atrial fibrillation. 8. Hypothyroid. 9. Suspected urinary tract infection, positive gram-negative carrol over 100,000 CFU. PLANS: 1. Per renal standpoint, will start patient on bicarb drip, continue to hold ramipril. We will check urine protein/creatinine ratio and urine electrophoresis. 2. Check urine eosinophils. 3. Repeat BMP in am. Thank you for the consultation. We will monitor along with you. LARISSAD
--- NOTE | 2016-07-03 17:25 | NUR ---
Cardiac Patient remains in Afib rate in the 50-60s with bigeminal PVCs. No further episodes of pauses this shift. Patient on MP30 for close monitoring.
[2016-07-04] VITALS (8 sets, daily range): BP systolic 124–160; BP diastolic 48–88; PULSE 55–78; RESP 15–18; O2SAT 95–98
[2016-07-04] MEDS: Sodium Bicarb 8.4% Inj 150 MEQ in Dextrose 5% 1,000 ML IV SCH ×2 (03:53→16:17)
[2016-07-04 05:41] LABS: BASOPHILS % (AUTO) 0.3 % (0-3); EOSINOPHILS % (AUTO) 2.1 % (0-5); MONOCYTES % (AUTO) 6.4 % (4-12); Mean Corpuscular Hemoglobin 28.4 pg (27.0-35.0); Mean Corpuscular Volume 84.3 fL (81-100); Platelet Count 117 bil/L (150-400)
[2016-07-04 06:19] LABS: Magnesium 1.4 mg/dL (1.6-2.6); Phosphorus 2.6 mg/dL (2.5-4.9); Unsaturated Iron Binding 188.5 ug/dL
--- NOTE | 2016-07-04 06:45 | NUR ---
Stools/Strict NPO Pt has been to [facility] 4 times with urine/stool mix each time. Pt has also been incontinent of stool on pad in underwear each of these 4 times. The pt's stool is loose and has raj blood in it. Pt's H/H from this AM labs is 8.5/25.7. Pt has remained strict NPO throughout the shift and has been provided frequent oral care. Pt does get nausea and responds well to 8mg zofran IVP. The pt says that the zofran takes the edge off of the nausea but does not completely resolve it.
[2016-07-04] MEDS: Ondansetron 2 mg/mL 2 mL Inj IVPUSH PRN ×3 (08:26→20:37)
[2016-07-04] MEDS: Heparin 5,000 Unit/mL Inj SUBQ SCH (08:30)
--- NOTE | 2016-07-04 10:15 | DRSVH ---
PROCEDURE: X-RAY BARIUM SWALLOW ESOPHAGUS ([id number]) INDICATIONS: DYSPHAGIA COMPARISON: None. FINDINGS: Function: Mild esophageal dysmotility. No elicited gastroesophageal reflux. Morphology: Air-contrast images demonstrate normal mucosal morphology. Single contrast views show n o esophageal strictures, extrinsic mass effects, or diverticula. Limited images of the stomach demon strate normal appearance. Small reducible hiatal hernia. The attending physician was personally pres ent in the room during the examination. IMPRESSION: Esophageal dysmotility and small reducible hiatal hernia. Dictated by: Kevin CONROY Interpreted: Jessica Mendoza MD on 07/04/2016 at 10:14 Transcribed by: CATHY on 07/04/2016 at 10:15 Approved by: Jessica Mendoza M.D. on 07/04/2016 at 16:49
--- NOTE | 2016-07-04 10:46 | NUR ---
Barium Swallow pt ordered for barium swallow evaluation. pt aware. pt alert and oriented. pt transfered to wheelchair with sba, ra, IVF. departed unit at about 0900. accessibility lift technician informed. pt returned to room 2030 at about 0950. accessibility lift technician informed. care continues.
--- NOTE | 2016-07-04 14:08 | NUR ---
Nausea pt continues to report continuous nausea. no emesis. prn zofran 8mg ivp given with adequate results. care continues.
--- NOTE | 2016-07-04 14:22 | NUR ---
NUTRITION FOLLOW UP: ASSESS: 86 YO F admitted with acute renal failure related to dysphagia and poor oral intake for past 3 weeks. Pt has been NPO X 3 days. Barium swallow today. PMHx: CAD status post CABG and stent, A-fib on warfarin, gout, neuropathy, hypothyroid. DIET: NPO. LABS: BUN 45, Cr 2.92, Glu 131, Ca 8.4 MEDICATIONS: Synthroid. GI: 3 BM 07/04. SKIN: No issues reported. ANTHROPOMETRICS: Current Wt: 54.2 kg, BMI: 21.5kg/m2. IBW: 51.1 kg (98.6% IBW) ESTIMATED NEEDS (RICKY): Calories: 0274-0990 kcal/day (25-35 kcal/kg BW) Protein: 30-40 g/day (0.6-0.8 g/kg BW) Fluid: Approx. 1260 mL (25 mL/kg BW) NUTRITION DIAGNOSIS: 1) Inadequate oral intake related to chewing / swallowing difficulties, as evidenced by inability to tolerate oral intake past 3 weeks, barium swallow ordered and is pending.--PERSISTS. INTERVENTION: 1) Will await timely advancement of diet. MONITOR/EVALUATE: Diet advance, NPO status, labs, GI/nutrition status. Follow per high nutrition risk guidelines.
--- NOTE | 2016-07-04 14:54 | PCM.PNNEPH ---
Subjective Date of Service Jul 04, 2016 Subjective The patient was seen in her room and her care was discussed both with the patient and the patient's daughter. I will also review the patient's chart. I strongly suspect that she has a component of chronic kidney disease which is recently exacerbated due to dehydration in the form of acute kidney injury. As she has been hydrated her function has slowly improved Today. In the last 24 hours her intake and output were 3160 in and 1300 out. Her blood pressures have averaged 140-180 range. Otherwise she denies any chest pain, shortness of breath, cough, wheezing or vomiting. She is continuing to have some ongoing diarrhea. This morning her sodium is 139, potassium 3.8, chloride 105, bicarbonate is 17, BUN and creatinine were 45 and 2.97. Her parathyroid hormone level was elevated at 376 which is consistent more with some chronic kidney disease. Her transferrin saturation is 8%. Exam Vital Signs Vital Sign - Last Date Time Temp Pulse Resp B/P Pulse Ox O2 Delivery O2 Flow Rate FiO2 07/04/16 11:29 36.6 71 15 156/62 98 Room Air Intake and Output 07/03/16 07/03/16 07/04/16 Cumulative From/Thru 15:00 23:00 07:00 07/01/16 14:23 - 07/04/16 06:13 Intake Total 1420 ml 1064 ml 7323 ml Output Total 1100 ml 750 ml 3150 ml Balance 320 ml 314 ml 4173 ml Intake Oral 0 ml 0 ml 0 ml IV Total 1420 ml 1064 ml 6979 ml Packed Cells 344 ml Output Urine Total 1100 ml 2400 ml Urine/Stool Mix 750 ml 750 ml # Voids 3 3 # Bowel Movements 3 3 Exam HEENT examination is remarkable for pale sclera. Neck is supple without adenopathy thyromegaly or jugular venous distention. Lungs are clear to auscultation. Heart was regular and rhythmical with a soft systolic murmur. Abdomen is soft without any tenderness rebound guarding masses or hepatosplenomegaly. Extremities do not reveal evidence of any clubbing cyanosis or edema. Skin turgor slightly diminished there is no evidence of any rashes. Lab and Diagnostics Result Diagram: 07/04/1651407/04/16514 X-Rays, CTs and MRIs PROCEDURE: CT KUB IMPRESSION: 1. No hydronephrosis, nephrolithiasis, hydroureter, or ureterolithiasis. 2. No acute intra-abdominal findings. Normal appendix. 3. Cholelithiasis. No findings to suggest choledocholithiasis or acute cholecystitis. 4. Simple appearing right renal cyst which is incompletely characterized in the absence of contrast. 5. Subcentimeter right mid pole hyperdense renal cyst. Cystic neoplasm cannot be excluded. If further characterization is warranted, consider renal ultrasound. 6. Aortic atherosclerosis. Dictated by: Cynthia Magallanes M.D. on 07/01/2016 at 18:14 Cardiac Echo Impressions Interpretation Summary The patient was in atrial fibrillation with controlled ventricular rate during the exam. The left ventricle is normal in size. Left ventricular wall thickness is mildly increased. The ejection fraction is estimated to be 50-55%. There is a mild dyssynchronous contraction pattern, consistent with a conduction abnormality. There is apical severe hypokinesis. This is unchanged compared to the previous study. The right ventricle is normal in size and function. The right ventricular systolic pressure is estimated at 58 mmHg assuming a right atrial pressure of 15 mm Hg. The IVC is dilated (diameter is greater than 2.1 cm) and it collapses less than 50% with a sniff. This suggests a high right atrial pressure of 15 mmHg. Both atria are severely dilated. A secundum type atrial septal defect is present. The atrial septal defect is small. There is moderate to severe mitral regurgitation. There is an eccentric jet of mitral regurgitation that is directed posterior- laterial. This is unchanged compared to the previous study. Multiple liver cysts are noted. No other echocardiographic abnormalities seen. Reading Physician:02:49 PM Plan Impression Impression #1 dehydration secondary to diarrhea. #2 acute on chronic kidney injury secondary to #1 #3 hypomagnesemia and #4 hypertension with hypertensive heart disease. Extensive nephrosclerosis #5 deficiency anemia #6 hyper parathyroidism secondary to chronic kidney disease. Recommendations #1 I would like to stop her proton pump inhibitor. I will also discontinue her IV fluid and continue to closely follow her intake, output, and laboratory values. Plan The patient will continue hyperbaric treatments. Will return () for treatment #() Manoj Langford DO Jul 04, 2016 14:54
--- NOTE | 2016-07-04 20:04 | PCM.PNMED ---
Subjective Date of Service Jul 04, 2016 Subjective overnight: Patient developed bright bloody diarrhea overnight with some noted bowel incontinence. today: The patient states that the diarrhea has bright red blood but it is not large amounts. She states that she has a history of hemorrhoids in the past, however she has not been diagnosed by a doctor, she simply assumes because after her years ago she was told that she had hemorrhoids. She denies any pain on wiping her bottom. She states that her hemorrhoids have been progressively worse over the last year. The patient states that thirty years ago she had a small bowel resection which took her appendix too. Exam Vital Signs Vital Sign - Last Date Time Temp Pulse Resp B/P Pulse Ox O2 Delivery O2 Flow Rate FiO2 07/04/16 03:41 36.4 58 18 148/48 95 Room Air Intake and Output 07/03/16 07/03/16 07/04/16 Cumulative From/Thru 15:00 23:00 07:00 07/01/16 14:23 - 07/04/16 06:13 Intake Total 1420 ml 1064 ml 7323 ml Output Total 1100 ml 750 ml 3150 ml Balance 320 ml 314 ml 4173 ml Intake Oral 0 ml 0 ml 0 ml IV Total 1420 ml 1064 ml 6979 ml Packed Cells 344 ml Output Urine Total 1100 ml 2400 ml Urine/Stool Mix 750 ml 750 ml # Voids 3 3 # Bowel Movements 3 3 Exam General: patient is an elderly female laying comfortably in hospital bed, no acute distress HEENT: Head is normocephalic atraumatic, dry tongue and buccal mucosa, no oral thrush appreciated; PERRLA, EOMI, sclera anicteric neck: supple, trachea midline, no JVD Heart: regular rate and rhythm without murmurs gallops or rubs Lungs: clear to auscultation bilaterally, no wheezing rales and rhonchi Abdomen: soft, nontender, nondistended, with normoactive bowel tones, well healed old horizontal surgical scar noted in the right abdominal area consistent with prior bowel surgery Extremities: Moderate non-pitting edema present in both lower extremities Pulses: present bilaterally at dorsalis pedis posterior tibialis and radial. Skin: warm and dry there are no rashes. Psych: alert and oriented to person, place and time Neuro: cranial nerves are grossly intact, able to move all extremities grossly, normal speech : no cuevas in place Rectum: on AVILA firm irregular mass noted in the interior rectum on the ventral right aspect. finger with small bright blood on withdrawal. Consistent with likely thrombosed internal hemorrhoids. undiagnosed neoplasm less likely Lab and Diagnostics Result Diagram: 07/04/1615 07/04/1615 X-Rays, CTs and MRIs PROCEDURE: CT KUB IMPRESSION: 1. No hydronephrosis, nephrolithiasis, hydroureter, or ureterolithiasis. 2. No acute intra-abdominal findings. Normal appendix. 3. Cholelithiasis. No findings to suggest choledocholithiasis or acute cholecystitis. 4. Simple appearing right renal cyst which is incompletely characterized in the absence of contrast. 5. Subcentimeter right mid pole hyperdense renal cyst. Cystic neoplasm cannot be excluded. If further characterization is warranted, consider renal ultrasound. 6. Aortic atherosclerosis. Dictated by: Cynthia Magallanes M.D. on 07/01/2016 at 18:14 Cardiac Echo Impressions Interpretation Summary The patient was in atrial fibrillation with controlled ventricular rate during the exam. The left ventricle is normal in size. Left ventricular wall thickness is mildly increased. The ejection fraction is estimated to be 50-55%. There is a mild dyssynchronous contraction pattern, consistent with a conduction abnormality. There is apical severe hypokinesis. This is unchanged compared to the previous study. The right ventricle is normal in size and function. The right ventricular systolic pressure is estimated at 58 mmHg assuming a right atrial pressure of 15 mm Hg. The IVC is dilated (diameter is greater than 2.1 cm) and it collapses less than 50% with a sniff. This suggests a high right atrial pressure of 15 mmHg. Both atria are severely dilated. A secundum type atrial septal defect is present. The atrial septal defect is small. There is moderate to severe mitral regurgitation. There is an eccentric jet of mitral regurgitation that is directed posterior- laterial. This is unchanged compared to the previous study. Multiple liver cysts are noted. No other echocardiographic abnormalities seen. Reading Physician:02:49 PM Additional Diagnostics X-RAY BARIUM SWALLOW ESOPHAGUS IMPRESSION: Esophageal dysmotility and small reducible hiatal hernia. Dictated by: Kevin CONROY Interpreted: Jessica Mendoza MD on 07/04/2016 at 10: 14 Transcribed by: CATHY on 07/04/2016 at 10:15 Approved by: Jessica Mendoza M.D. on 07/04/2016 at 16:49 Assessment & Plan Patient is an 86-year-old female with a history of CAD status post CABG and stent, afib on warfarin, gout, neuropathy. She presented to [facility] due to dysphagia and poor oral intake of 3 weeks. Admitted for evaluation and management of RICKY. Hospital day #4 1. lower GI bleed, acute, present on admission, stable - Concern for likely thrombosed and active bleeding internal hemorrhoids - Has received 1 unit PRBC's during this admission. - Hemoglobin has remained stable since transfusion on 07/02 - continue holding outpatient warfarin and aspirin - Continue to monitor CBC. 2. acute blood loss anemia secondary to lower GI bleed, acute, present on admission. - patient likely also has anemia of chronic disease given elevated ferritin and low TIBC - Treatment as above in #5. 3. Dysphagia, subacute, present on admission, under evaluation - Barium swallow ordered showed mild esophageal dysmotility and a small hiatal hernia. - GI consulted for possible upper endoscopy and given acute blood loss anemia consideration for lower GI scope - Antiemetic available PRN nausea. - full liquids available with patient NPO after midnight for GI evaluation tomorrow 4. Acute kidney failure, present on admission, treated improving - no previous records of chronic kidney disease - Most likely due to poor intake secondary to dysphagia. - Continue IV fluids at 100 ml/hr. - Dr. Portillo of nephrology has seen the patient and we appreciate her input. - consideration for restarting outpatient ACEI if hypertensive - Continue to monitor BMP. 5. Digoxin toxicity, acute, present on admission. - Likely secondary to her renal failure and fluid depleted status. - Dig level 2.1at admission. Holding digoxin at this time. - Will continue to follow lab value. - Continue telemetry. 6. Elevated troponin, acute, present on admission. - Likely due to hypovolemia induced tachycardia from RICKY, with possible CKD. - Continue telemetry. - Patient asymptomatic and will not continue to follow the lab value. Low threshold to repeat if patient has chest pain. 7. CAD s/p CABG and stents - Holding her home medications including ASA, atorvastatin, and beta sonny. Will restart when possible 8. Atrial fibrillation on chronic anticoagulation, presume stable. - Holding anticoagulation due to concerns of lower GI bleed. - Holding digoxin secondary to toxicity. - Continue telemetry. 9. Hypothyroidism, chronic, presume stable. - Holding home synthroid as patient is NPO. - Antacid available PRN. - Tylenol available PRN mild pain, fever. - Melatonin available PRN insomnia. Disposition: awaiting further evaluation and determination of need for more invasive intervention such as upper endoscopy or esophageal surgery. Anticipate a few more days of admission. Pain Evaluation: Adequate Pain Control VTE Mechanical Devices: Intermittant Pneumatic CD Resuscitation Status: DNR/DNI:Do Not Resuscitate/Intubate Attending Statement The patient was seen and examined together with Dr. Llamas on 07-04-16 and I agree with the history, exam and plan as outlined in the note above. Olaf Llamas DO Jul 04, 2016 07:53 Giovanna Dash MD Jul 05, 2016 16:29
[2016-07-05] VITALS (8 sets, daily range): BP systolic 129–155; BP diastolic 67–90; PULSE 52–75; RESP 14–18; O2SAT 96–98
[2016-07-05] MEDS: Ondansetron 2 mg/mL 2 mL Inj IVPUSH PRN ×5 (01:01→21:30)
[2016-07-05] MEDS: Sodium Bicarb 8.4% Inj 150 MEQ in Dextrose 5% 1,000 ML IV SCH (04:18)
[2016-07-05 05:33] LABS: BASOPHILS % (AUTO) 0.3 % (0-3); EOSINOPHILS % (AUTO) 4.2 % (0-5); MONOCYTES % (AUTO) 8.9 % (4-12); Mean Corpuscular Hemoglobin 28.2 pg (27.0-35.0); Mean Corpuscular Volume 85.9 fL (81-100); Platelet Count 95 bil/L (150-400)
[2016-07-05 05:59] LABS: INR 4.6 ratio; Magnesium 1.3 mg/dL (1.6-2.6)
--- NOTE | 2016-07-05 07:30 | NUR ---
GI/ Pt voiding per BR. No stool during this shift. VSS. No S/Sx of bleeding noted. Pt is NPO status due to possible GI procedures. Pt verbalizes understanding. Daughter visiting at the bedside throughout the NOC. No overt complications noted.
[2016-07-05] MEDS ORDERED: 0.9% NaCl + KCl 20 mEq/L 1,000 ML IV SCH (07:45)
[2016-07-05 08:29] LABS: INR 4.52 ratio
[2016-07-05] MEDS: Potassium Chloride 20 mEq/15 mL 15mL Oral Soln PO SCH ×3 (08:56→17:11)
[2016-07-05] MEDS ORDERED: Magnesium Sulf 4 Gm/100 mL H2O 4 GM in IV Premix 1 EACH IV ONE (09:30)
[2016-07-05] MEDS ORDERED: KCl 40 mEq/D5W 500 mL 40 MEQ in IV Premix 1 EACH IV ONE (10:10)
--- NOTE | 2016-07-05 13:21 | PCM.CHPMED ---
Subjective Date of Service: Jul 05, 2016 Provider requesting consult: Olaf Llamas DO Primary Physician: Admitting Physician: Blaine Maciel MD Primary Care Physician: Sridhar Mckeon MD Attending Physician: Blaine Maciel MD Chief Complaint: Chief Complaint: REASON FOR GI CONSULT: Dysphagia, bright red blood per rectum History of Present Illness: GASTROENTEROLOGY CONSULTATION NOTE Ms. 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 GI was consulted to assist in evaluation. She states that her ileum was resected in the at [facility] in [place] due to persistently elevated cholesterol levels from a type of hereditary hyperlipidemia, and the resection would assist in cholesterol control. Although she states her cholesterol levels have improved, she has had chronic diarrhea since the procedure many years ago. She notes that over the years, her stool has always contained a small amount of blood, but has increased in amount over the recent weeks. She states that the blood is bright red, and she often needs to wear a pad/adult diaper to absorb the quantity, described as 'much greater' than a teaspoon. She best compares it to her years experiencing menses. Denies any pain with BM. Last colonoscopy was > 10 years ago. She states she has history of hemorrhoids, and attributed her symptoms to this. She states her dysphagia has also been progressive over the recent 3-4 weeks, and she states that she has unintentionally lost approx 20lbs secondary to poor po intake. She shares that her medications would frequently 'get stuck,' and the 'stuck' sensation occurs with both liquids and solids. She has never had an EGD. She shares that the food particles and liquids seems to become lodged approx mid-throat above her sternal notch, and that she frequently cannot swallow and coughs up or vomits what she is trying to ingest. She does not currently have a PCP. Children are nearby and involved in her care. No family present at bedside at time of examination. Currently denies any SOB, CP, fever, chills, nausea, headache. Continues to report bloody BM and dysphagia. Currently NPO pending interventions. Review of Systems: Complete ROS obtained; pertinent positives and negatives per HPI PMH Past Medical History CAD status post CABG and stent afib on warfarin gout neuropathy Bedside Blood Glucose: 108 Surgical History Hysterectomy CABG 1979 Cardiac Stent 1999 Resection of ileium for hyperlipidemia- completed in Home Medications Per admission note: Synthroid 50 MCG daily Lasix 40 mg by mouth daily, gabapentin 100 mg a day KCl 10 mg by mouth daily Digoxin 0.25 mg daily Pravastatin 10 mg by mouth daily ramipril ranitidine recently started warfarin Allergies: Coded Allergies: atenolol (Verified Allergy, Severe, shortness of breath and angina, ) able to take tenormin prednisone (Verified Allergy, Severe, hallucinations,dementia, 07/01/16) pregabalin (Verified Allergy, Severe, all side effects listed, 07/01/16) abciximab (Verified Allergy, Intermediate, rash, 07/01/16) Family History Family History Denies any family history of GI issues; notes familial hyperlipidemia; states both parents in their 60s secondary to cardiac events; no siblings Social History Hx Alcohol Use: Yes (''rarely"- a glass of wine/month)Hx Substance Use: No Smoking Status: Former Smoker (quit 1974) Exam Vital Signs Vital Sign - Last Date Time Temp Pulse Resp B/P Pulse Ox O2 Delivery O2 Flow Rate FiO2 07/05/16 07:58 36.4 52 16 150/74 96 Room Air Intake and Output 07/04/16 07/04/16 07/05/16 Cumulative From/Thru 14:59 22:59 06:59 07/01/16 14:23 - 07/05/16 06:21 Intake Total 1216 ml 1045 ml 9584 ml Output Total 850 ml 500 ml 4500 ml Balance 366 ml 545 ml 5084 ml Intake Oral 0 ml 0 ml 0 ml IV Total 1216 ml 1045 ml 9240 ml Packed Cells 344 ml Output Urine Total 850 ml 3250 ml Urine/Stool Mix 500 ml 1250 ml # Voids 1 3 7 # Bowel Movements 4 3 10 General: Alert, Oriented X3, Cooperative, No Acute Distress Eyes: EOMI, Scleral Anicteric Nose: Mucous Membr Moist/Rosebud Mouth: Mucous Membr Moist/Rosebud Chest & Lungs: Auscultation (Clear bilaterally with adequate air flow all villarreal), No adventitious breath sounds Cardiovascular: Regular Rate/Rhythm, Normal S1, Normal S2, No Murmurs/Rubs/ Gallops Pulses: Radial (Equal and bilateral) Abdomen: Non-tender, Non-distended, Normoactive bowel tones, Soft Musculoskeletal: Normal Range of Motion Extremities: Warm, Edema (Trace dependent edema noted bilateral ankles) Neurological: Cranial Nerves 2-12 Intact, Normal Speech (without slur) Lab and Diagnostics Result Diagram: 07/05/1651407/05/16514 Assessment & Plan Assessment GASTROENTEROLOGY CONSULTATION NOTE Ms. 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 GI was consulted to assist in evaluation. CT KUB 07/01: No hydronephrosis, nephrolithiasis, hydroureter, or ureterolithiasis. No acute intra-abdominal findings. Normal appendix. Cholelithiasis. No findings to suggest choledocholithiasis or acute cholecystitis. Simple appearing right renal cyst which is incompletely characterized in the absence of contrast. Subcentimeter right mid pole hyperdense renal cyst. Cystic neoplasm cannot be excluded. If further characterization is warranted, consider renal ultrasound. Aortic atherosclerosis. XR Barium swallow 07/04: Mild esophageal dysmotility, no elicited gastroesophageal reflux, small reducible hiatal hernia. Assessments - Dysphagia - BRBPR - Supratherapeutic INR - Chronic diarrhea secondary to ileal resection Plan - Plan for EGD and colonoscopy when INR levels appropriate, levels of 3.0 acceptable; likely 07/06 - If INR remains elevated in am, transfuse FFP prior to procedure based on timing/scheduling - Further interventions pending results - Continue to monitor HH, transfuse as needed Thank you for this consult, we will happily follow along with you at this time. Please do not hesitate to contact us with any questions or concerns. Total time: 45 minutes I have seen and examined the patient with the resident. Agree with above. Problems: Pain Evaluation: Adequate Pain Control VTE Mechanical Devices: Intermittant Pneumatic CD Resuscitation Status: DNR/DNI:Do Not Resuscitate/Intubate Edna Colin DO Jul 05, 2016 08:40 Markus Dunlap MD Jul 07, 2016 20:53
[2016-07-05] MEDS ORDERED: Phytonadione (Adult) 10 mg/1 mL Inj PO ONE (13:40)
--- NOTE | 2016-07-05 15:19 | NUR ---
Evaluation completed. Please go to "Notes" then click on "Assessments and Notes" (bottom left corner of screen). Then select appropriate discipline tab on top of screen.
--- NOTE | 2016-07-05 15:40 | NUR ---
Social Work Note - Continue Discharge Planning: D/A: The Pt is an 86 y/o female that is now on day 4 of admission for acute renal failure, positive triponin. SW followed up with the Pt regarding discharge planning, Pt states that her grandson lives with her and will be able to assist as needed. Pt reports that she is in need of a new PCP, [facility] explored. Pt is agreeable to a [facility] appointment, [employer] Jesse contacted for assistance. SW will continue to follow. P: Pt likely to discharge home with family providing POV transportation. Pt is in need of new PCP, [facility] appointment to be scheduled. SW will continue to follow. MARCOS Maurice [employer] [facility] Blanchard
--- NOTE | 2016-07-05 16:10 | NUR ---
Scheduled hospital follow up appointment at [facility] on 07/11/16 420 PM check in with
--- NOTE | 2016-07-05 16:16 | PCM.PNNEPH ---
Subjective Date of Service Jul 05, 2016 Subjective The patient's renal function has continued to improve and she feels better. She denies any chest pain, shortness of breath, cough, wheezing, nausea or vomiting. Her blood pressure has fluctuated somewhat. Her intake and output last 24 hours were 2280 in and 1600 out with additional 500 on the first 8 hours today. This morning her hemoglobin was 8.8, sodium is 145, potassium 2.8 , chloride of 102, bicarbonate 29, BUN and creatinine are 37 and 2.64 which are improved. Magnesium is 1.3. Exam Vital Signs Vital Sign - Last Date Time Temp Pulse Resp B/P Pulse Ox O2 Delivery O2 Flow Rate FiO2 07/05/16 12:20 36.8 55 14 148/85 96 Room Air Intake and Output 07/04/16 07/04/16 07/05/16 Cumulative From/Thru 15:00 23:00 07:00 07/01/16 14:23 - 07/05/16 06:21 Intake Total 1216 ml 1045 ml 9584 ml Output Total 850 ml 500 ml 4500 ml Balance 366 ml 545 ml 5084 ml Intake Oral 0 ml 0 ml 0 ml IV Total 1216 ml 1045 ml 9240 ml Packed Cells 344 ml Output Urine Total 850 ml 3250 ml Urine/Stool Mix 500 ml 1250 ml # Voids 1 3 7 # Bowel Movements 4 3 10 Exam HEENT examination is remarkable for scleroderma and some mild bitemporal wasting. Neck is supple without adenopathy thyromegaly or jugular venous distention. Lungs are clear to auscultation. Heart was regular with a small systolic murmur. Abdomen soft benign tenderness rebound guarding masses or hepatosplenomegaly. Extremities do not show any evidence of any clubbing cyanosis or edema. Skin turgor is diminished and there is no evidence of any rashes. Lab and Diagnostics Result Diagram: 07/05/16 0515 07/05/16 0755 X-Rays, CTs and MRIs PROCEDURE: CT KUB IMPRESSION: 1. No hydronephrosis, nephrolithiasis, hydroureter, or ureterolithiasis. 2. No acute intra-abdominal findings. Normal appendix. 3. Cholelithiasis. No findings to suggest choledocholithiasis or acute cholecystitis. 4. Simple appearing right renal cyst which is incompletely characterized in the absence of contrast. 5. Subcentimeter right mid pole hyperdense renal cyst. Cystic neoplasm cannot be excluded. If further characterization is warranted, consider renal ultrasound. 6. Aortic atherosclerosis. Dictated by: Cynthia Magallanes M.D. on 07/01/2016 at 18:14 Cardiac Echo Impressions Interpretation Summary The patient was in atrial fibrillation with controlled ventricular rate during the exam. The left ventricle is normal in size. Left ventricular wall thickness is mildly increased. The ejection fraction is estimated to be 50-55%. There is a mild dyssynchronous contraction pattern, consistent with a conduction abnormality. There is apical severe hypokinesis. This is unchanged compared to the previous study. The right ventricle is normal in size and function. The right ventricular systolic pressure is estimated at 58 mmHg assuming a right atrial pressure of 15 mm Hg. The IVC is dilated (diameter is greater than 2.1 cm) and it collapses less than 50% with a sniff. This suggests a high right atrial pressure of 15 mmHg. Both atria are severely dilated. A secundum type atrial septal defect is present. The atrial septal defect is small. There is moderate to severe mitral regurgitation. There is an eccentric jet of mitral regurgitation that is directed posterior- laterial. This is unchanged compared to the previous study. Multiple liver cysts are noted. No other echocardiographic abnormalities seen. Reading Physician:02:49 PM Additional Diagnostics X-RAY BARIUM SWALLOW ESOPHAGUS IMPRESSION: Esophageal dysmotility and small reducible hiatal hernia. Dictated by: Kevin Capellan [facility] Interpreted: Jessica Mendoza MD on 07/04/2016 at 10: 14 Transcribed by: CATHY on 07/04/2016 at 10:15 Approved by: Jessica Mendoza M.D. on 07/04/2016 at 16:49 Plan Impression Impression #1 dehydration. #2 acute on chronic kidney injury secondary to #3 hypomagnesemia and #4 anemia #5 iron deficiency #6 anemia secondary to chronic kidney disease. Recommendations #1 I agree with replacing her potassium orally and I would like to give her an additional 40 mEq of potassium chloride and 500 mL also normal saline. In addition to start her on half-normal saline at 80 ML's per hour. We need to continue to follow rule out, eyes nose, and blood pressures. Manoj Langford DO Jul 05, 2016 16:16 Manoj Langford DO Jul 05, 2016 16:16
[2016-07-05] MEDS ORDERED: PEG/Electrolytes 4,000 mL Solution PO ONE (17:10)
--- NOTE | 2016-07-05 18:32 | NUR ---
LYTES/GI Patient received Mg and K+ riders today, diarrhea x2, and Vitamin K. Go-Lyte colon prep started at 1800. Patient to have EDG and or Colonoscopy tomorrow in INR (4.6) comes down. Patient given Zofran x3 which effective in reducing nausea.
[2016-07-05 18:48] LABS: Magnesium 3.1 mg/dL (1.6-2.6)
--- NOTE | 2016-07-05 20:25 | PCM.PNMED ---
Subjective Date of Service Jul 05, 2016 Subjective overnight: no acute events Today: The patient denies any ongoing diarrhea or bright blood per rectum. She states that she tried drinking water yesterday and it went okay. She states that she would be okay for an upper endoscopy and colonoscopy which is planned by GI for tomorrow. Exam Vital Signs Vital Sign - Last Date Time Temp Pulse Resp B/P Pulse Ox O2 Delivery O2 Flow Rate FiO2 07/05/16 04:40 36.7 57 16 129/67 96 Room Air Intake and Output 07/04/16 07/04/16 07/05/16 Cumulative From/Thru 15:00 23:00 07:00 07/01/16 14:23 - 07/05/16 06:21 Intake Total 1216 ml 1045 ml 9584 ml Output Total 850 ml 500 ml 4500 ml Balance 366 ml 545 ml 5084 ml Intake Oral 0 ml 0 ml 0 ml IV Total 1216 ml 1045 ml 9240 ml Packed Cells 344 ml Output Urine Total 850 ml 3250 ml Urine/Stool Mix 500 ml 1250 ml # Voids 1 3 7 # Bowel Movements 4 3 10 Exam General: patient is an elderly female laying comfortably in hospital bed, no acute distress HEENT: Head is normocephalic atraumatic, dry tongue and buccal mucosa, no oral thrush appreciated; PERRLA, EOMI, sclera anicteric neck: supple, trachea midline, no JVD Heart: regular rate and rhythm without murmurs gallops or rubs Lungs: clear to auscultation bilaterally, no wheezing rales and rhonchi Abdomen: soft, nontender, nondistended, with normoactive bowel tones, well healed old horizontal surgical scar noted in the right abdominal area consistent with prior bowel surgery Extremities: Moderate non-pitting edema present in both lower extremities Pulses: present bilaterally at dorsalis pedis posterior tibialis and radial. Skin: warm and dry there are no rashes. Psych: alert and oriented to person, place and time Neuro: cranial nerves are grossly intact, able to move all extremities grossly, normal speech : no cuevas in place Lab and Diagnostics Result Diagram: 07/05/16 0515 07/05/16 0515 X-Rays, CTs and MRIs PROCEDURE: CT KUB IMPRESSION: 1. No hydronephrosis, nephrolithiasis, hydroureter, or ureterolithiasis. 2. No acute intra-abdominal findings. Normal appendix. 3. Cholelithiasis. No findings to suggest choledocholithiasis or acute cholecystitis. 4. Simple appearing right renal cyst which is incompletely characterized in the absence of contrast. 5. Subcentimeter right mid pole hyperdense renal cyst. Cystic neoplasm cannot be excluded. If further characterization is warranted, consider renal ultrasound. 6. Aortic atherosclerosis. Dictated by: Cynthia Magallanes M.D. on 07/01/2016 at 18:14 Cardiac Echo Impressions Interpretation Summary The patient was in atrial fibrillation with controlled ventricular rate during the exam. The left ventricle is normal in size. Left ventricular wall thickness is mildly increased. The ejection fraction is estimated to be 50-55%. There is a mild dyssynchronous contraction pattern, consistent with a conduction abnormality. There is apical severe hypokinesis. This is unchanged compared to the previous study. The right ventricle is normal in size and function. The right ventricular systolic pressure is estimated at 58 mmHg assuming a right atrial pressure of 15 mm Hg. The IVC is dilated (diameter is greater than 2.1 cm) and it collapses less than 50% with a sniff. This suggests a high right atrial pressure of 15 mmHg. Both atria are severely dilated. A secundum type atrial septal defect is present. The atrial septal defect is small. There is moderate to severe mitral regurgitation. There is an eccentric jet of mitral regurgitation that is directed posterior- laterial. This is unchanged compared to the previous study. Multiple liver cysts are noted. No other echocardiographic abnormalities seen. Reading Physician:02:49 PM Additional Diagnostics X-RAY BARIUM SWALLOW ESOPHAGUS IMPRESSION: Esophageal dysmotility and small reducible hiatal hernia. Dictated by: Kevin Capellan [facility] Interpreted: Jessica Mendoza MD on 07/04/2016 at 10: 14 Transcribed by: CATHY on 07/04/2016 at 10:15 Approved by: Jessica Mendoza M.D. on 07/04/2016 at 16:49 Assessment & Plan Patient is an 86-year-old female with a history of CAD status post CABG and stent, afib on warfarin, gout, neuropathy. She presented to [facility] due to dysphagia and poor oral intake of 3 weeks. Admitted for evaluation and management of RICKY. Hospital day #5 1. lower GI bleed, acute, present on admission, stable - Concern for likely thrombosed and active bleeding internal hemorrhoids - Has received 1 unit PRBC's during this admission. - Hemoglobin has remained stable since transfusion on 07/02 - continue holding outpatient warfarin and aspirin - Continue to monitor CBC. - GI to perform a colonoscopy with bowel prep tonight and npo after midnight planned - vitamin K given today to treat elevated INR, with possible FFP given tomorrow if INR not corrected 2. acute blood loss anemia secondary to lower GI bleed, acute, present on admission. - patient likely also has anemia of chronic disease given elevated ferritin and low TIBC - Treatment as above in #5. 3. Dysphagia, subacute, present on admission, under evaluation - Barium swallow ordered showed mild esophageal dysmotility and a small hiatal hernia. - GI consulted for possible upper endoscopy and given acute blood loss anemia consideration for lower GI scope - Antiemetic available PRN nausea. - full liquids available with patient NPO after midnight for GI evaluation tomorrow - GI to perform a EGD with npo after midnight planned - vitamin K given today to treat elevated INR, with possible FFP given tomorrow if INR not corrected 4. Acute kidney failure, present on admission, treated improving - no previous records of chronic kidney disease - Most likely due to poor intake secondary to dysphagia. - Continue IV fluids at 100 ml/hr. - Dr. Portillo of nephrology has seen the patient and we appreciate her input. - consideration for restarting outpatient ACEI if hypertensive - Continue to monitor BMP. 5. Hypokalemia, not present on admission, treated stable - likely due to over hydration with bicarb causing mild alkalosis -nephrology following, converted fluids to 1/2 NS with potassium - Potassium chloride 20 mEq 3 times a day in liquid form for dysphagia. 6. Elevated troponin, acute, present on admission. - Likely due to hypovolemia induced tachycardia from RICKY, with possible CKD. - Continue telemetry. - Patient asymptomatic and will not continue to follow the lab value. Low threshold to repeat if patient has chest pain. 7. CAD s/p CABG and stents - Holding her home medications including ASA, atorvastatin, and beta sonny. Will restart when possible 8. Atrial fibrillation on chronic anticoagulation, presume stable. - Holding anticoagulation due to concerns of lower GI bleed. - Holding digoxin secondary to toxicity. - Continue telemetry. 9. Hypothyroidism, chronic, presume stable. - Holding home Synthroid as patient is NPO. - Thyroid testing show correct dosing of levothyroxine 10. Digoxin toxicity, acute, present on admission. - Likely secondary to her renal failure and fluid depleted status. - Dig level 2.1at admission. Holding digoxin at this time. - Will continue to follow lab value. - Continue telemetry - Antacid available PRN. - Tylenol available PRN mild pain, fever. - Melatonin available PRN insomnia. Disposition: awaiting further evaluation and determination of need for more invasive intervention such as upper endoscopy or esophageal surgery. Anticipate a few more days of admission. VTE Mechanical Devices: Intermittant Pneumatic CD Resuscitation Status: DNR/DNI:Do Not Resuscitate/Intubate Attending Statement The patient was seen and examined together with Dr. Llamas on 07-05-16 and I agree with the history, exam and plan as outlined in the note above. Olaf Llamas DO Jul 05, 2016 07:45 Giovanna Dash MD Jul 06, 2016 12:46
[2016-07-06] VITALS (11 sets, daily range): BP systolic 144–168; BP diastolic 69–96; PULSE 65–88; RESP 16–18; O2SAT 96–100
--- NOTE | 2016-07-06 03:59 | NUR ---
Golytely/A&O NPO pending endoscopy in , Neli bowel prep, able to self transfer, 1/2/ NS @ 80 room air, A/O x3 using call light appropriately. Tele A-Fib 80's Blood pressures trending up , consulted resident , was advised to observe for now, .
[2016-07-06] MEDS ORDERED: Lactated Ringer's 1,000 ML IV ONE (06:00)
[2016-07-06 06:03] LABS: BASOPHILS % (AUTO) 0.3 % (0-3); EOSINOPHILS % (AUTO) 3.7 % (0-5); Mean Corpuscular Hemoglobin 28.8 pg (27.0-35.0); Mean Corpuscular Volume 87.4 fL (81-100); NEUTROPHILS % (AUTO) 69.2 % (40-74); Platelet Count 108 bil/L (150-400)
[2016-07-06 06:17] LABS: INR 1.29 ratio
[2016-07-06] MEDS ORDERED: MeTOProlol 1 mg/mL 5 mL Inj IVPUSH ONE (08:05)
[2016-07-06] MEDS: Ondansetron 2 mg/mL 2 mL Inj IVPUSH PRN (08:20)
[2016-07-06] MEDS: Potassium Chloride 20 mEq/15 mL 15mL Oral Soln PO SCH ×3 (08:21→17:43)
[2016-07-06] MEDS ORDERED: Propofol 10,000 mCg/mL 20 mL Inj ONE (09:57)
[2016-07-06] MEDS ORDERED: Ondansetron 2 mg/mL 2 mL Inj IVPUSH PRN (14:15)
[2016-07-06] MEDS ORDERED: MetoCLOpramide 5 mg/mL 2 mL Inj IVPUSH PRN (14:15)
--- NOTE | 2016-07-06 14:15 | PCM.HPANE ---
Patient Data Date of Service: Jul 06, 2016 Surgeon Admitting Provider:Blaine Maciel MD Attending Provider:Blaine Maciel MD Primary Care Physician:Sridhar Mckeon MD Other Provider: Reason for Visit Acute Renal Failure,Postitive Triponin ACUTE RENAL FAILURE,POSTITIVE TRIPONIN Ht/WT & BMI Height (Feet): 5 Height (Inches): 2.50 Weight (Kilograms): 55.900 Body Mass Index 22.00 Allergies Coded Allergies: atenolol (Verified Allergy, Severe, shortness of breath and angina, ) able to take tenormin prednisone (Verified Allergy, Severe, hallucinations,dementia, 07/01/16) pregabalin (Verified Allergy, Severe, all side effects listed, 07/01/16) abciximab (Verified Allergy, Intermediate, rash, 07/01/16) Past Anesthesia History Anesthesia History: Denies:: Anesthesia Reactions, Fam Anesthesia Reaction, Fam Malignant Hypertherm, Malignant Hyperthermia Diabetes History Hx Diabetes?: No Current Bedside Blood Glucose: 108 MRSA MRSA: No Medications Blood Thinner: Coumadin Last Dose Blood Thinner: Jun 29, 2016 Hypertension Medication: Yes Home Meds Incl Beta Jorgito: No Date Beta Jorgito Taken: Jun 29, 2016 Time Beta Jorgito Taken: 0800 Reported Medications Furosemide 40 Mg [id number] Mg PO DAILY 07/01/16 Cyanocobalamin (Vitamin B-12) (Vitamin B-12)1,000 Mcg Tablet1,000 Mcg PO DAILY 07/01/16 Folic Acid/Multivits-Min/Lut (Multi-Vitamin Gummies)1 Each Tab.[email or web address] Each PO DAILY 07/01/16 Atenolol (Tenormin)25 Mg [id number] Mg PO DAILY 30 Days Ref 0 07/01/16 Warfarin Sodium 1 Mg Tablet0.5 Mg PO DIRECTED 30 Days Ref 0 Take 1/2 tablet daily x 2 days, then skip one day, then daily again for 2 days 07/01/16 Digoxin 250 Mcg [id number] Mcg PO QPM #30 TABLET Ref 0 07/01/16 Hydrocodone-Acetaminophen 5-325 mg 1 Each Tablet1-2 Tablet PO Q8H PRN For Pain Ref 0 07/01/16 Ramipril 5 Mg Capsule5 Mg PO DAILY 07/01/16 Potassium Chloride ER 10 Meq [id number] Meq PO DAILY Ref 0 TAKE WITH FOOD 07/01/16 Atorvastatin (Lipitor)10 Mg Tab10 Mg PO HS Ref 0 07/01/16 Levothyroxine 50 Mcg [id number] Mcg PO QAM Ref 0 07/01/16 Ranitidine 150 Mg [id number] Mg PO BIDWM Ref 0 07/01/16 Ondansetron 4 Mg Tablet4-8 Mg PO Q4H PRN For Nausea/Vomiting 07/01/16 History History of ENT Problems?: No HEENT History: Positive for:: Dysphagia Other HEENT Pertinent History: wears glasses Hx of Heart Problems?: Yes Cardiovascular History: Positive for:: Atrial Fibrillation (intermittently) Cardiac Surgery (CABG) Chest Pain (s/p CABG (4-vessel)) Edema (LE edema, chronic) Hypertension Irregular Heartbeat (afib) Denies:: Congestive Heart Failure Heart Murmur Pacemaker Thrombophlebitis Other Cardiac History: HLD Hx of Respiratory Problem?: No Hx Neurologic Problems?: No Neurological History: Denies:: CVA Hx of GI Problems?: No Gastrointestinal History: Positive for:: Rectal Bleeding Hx of Problems?: No Female Hx: Denies:: Currently Endometriosis Pelvic Inflammatory (s/p hysterectomy) Hx Musculoskeletal Problems?: No Hx of Psycho/Social Problems?: No Hx Surgeries?: Yes (hysterectomy, CABG) Hx Any Other Health Problems?: Yes Other History: Positive for:: Hospitalization (for surgeries) Denies:: Cancer Thyroid Disease History Blood Transfusions: Positive for:: Accept Blood Products? Blood Transfusions Hx Diabetes: NoBedside Blood Glucose: 108 Hx Alcohol Use: Yes (''rarely"- a glass of wine/month)Hx Substance Use: No Smoking Status: Former Smoker Stop/Bang Treated for Sleep Apnea?: No Do You Have a CPAP Machine?: No S-Snoring: Do You Snore Loudly: No T-Tired: feel tired, fatigued: Yes O-Obsered: Observed not breath: No P-Blood Pressure: treated: Yes B- Body Mass Index > 35 kg/m2: No A- Age over 50: Yes N- Neck Large Circumference: No G- Gender Male: No ASHWINI Total Score: 3 ASHWINI Risk Assessment: High Risk, =/>3 Yes Risk Assessment Category Category 1A: Patient has history of documented sleep apnea, and HAS NOT received any narcotic, sedative or anesthesia administration during this stay. Category 1B: Patient has history of documented sleep apnea, and HAS received any narcotic , sedative or anesthesia administration during this stay Category 2: Patient has SUSPECTED Obstructive Sleep Apnea, and HAS received any narcotic , sedative or anesthesia administration during this stay. Category 3: Patient has SUSPECTED Obstructive Sleep Apnea and HAS NOT received narcotic, sedative or anesthesia administration during this stay. Category 4: Outpatient in Procedural Areas with known sleep apnea or who screen positive for High Risk via the STOP/BANG questionnaire. Exam Exam Vital Signs Vital Signs Date Time Temp Pulse Resp B/P Pulse Ox O2 Delivery O2 Flow Rate FiO2 07/06/16 13:59 36.6 87 16 161/90 98 Room Air 07/06/16 12:30 36.4 80 18 162/82 97 Room Air 07/06/16 10:55 80 07/06/16 08:11 36.3 71 16 168/76 97 Room Air General Appearance: Alert, Oriented X3, Cooperative HEENT/AIRWAY: MP 2, Mouth Opening (slightly) Lungs: Clear to Auscultation, Normal Air Movement Heart: Regular Rate/Rhythm, Normal S1, Normal S2 Meds/Labs/Diagnostics Admission Meds Current Medications Polyethylene Glycol/ Electrolytes 4000 ml 4,000 ml ONCE ONCE PO Last administered on 07/05/16 17:24; Start 07/05/16 at 17:10; Stop 07/05/16 at 17:11 ; Status DC Lactated Ringer's (Lr) 1,000 ml @ 10 mls/hr Q24H ONCE IV Last administered on 07/06/16 06:07; Start 07/06/16 at 06:00; Stop 07/07/16 at 05:59 Metoprolol Tartrate (Lopressor Inj) 5 mg ONCE ONCE IVPUSH Last administered on 07/06/16 08:29; Start 07/06/16 at 08:05; Stop 07/06/16 at 08:20; Status DC Bedside Blood Glucose: 108 Labs Test 07/01/16 15:13 07/01/16 20:36 07/01/16 21:30 07/03/16 05:20 Hold Blue Top Tube Received (Received) Lactic Acid Level 1.0mmol/L (0.4-2.0) Pro-B-Type Natriuretic Peptide 5392pg/mL (0-738) Hold Red Top Tube Received (Received) Hold Cornell Top Tube Received (Received) Total Creatine Kinase 24U/L (21-215) Thyroid Stimulating Hormone (TSH) 1.440uIU/mL (0.450-4.500) Free Thyroxine 1.62ng/dL (0.82-1.77) Urine Color Straw (YELLOW) Urine Appearance Hazy (CLEAR,HAZY) Urine pH 5.0 (5.0-8.0) Urine Specific [place] 1.015 (1.003-1.035) Urine Protein Negativemg/dL (NEG,TRACE) Urine Glucose (UA) Negativemg/dL (NEGATIVE) Urine Ketones Negativemg/dL (NEGATIVE) Urine Occult Blood Trace (NEGATIVE) Urine Nitrite Negative (NEGATIVE) Urine Bilirubin Negative (NEGATIVE) Urine Urobilinogen Normalmg/dL (NORMAL) Urine Leukocyte Esterase Moderate (NEGATIVE) Urine RBC 3-10/hpf (0-2) Urine WBC 11-50/hpf (0-5) Urine Epithelial Cells Moderate/hpf (NONE-MOD) Urine Crystals None seen (NONE SEEN) Urine Bacteria Moderate/hpf (NONE-FEW) Urine Hyaline Casts None/lpf (NONE) Urine Granular Casts None seen (NONE SEEN) Urine Waxy Casts None seen (NONE SEEN) Urine Red Blood Cell Casts None seen (NONE SEEN) Urine White Blood Cell Casts None seen (NONE SEEN) Urine Mucus None seen (None Seen) Urine Trichomonas None seen (NONE SEEN) Urine Yeast None (NONE SEEN) Urinalysis Comment Urine Culture Reflexed Indicated Troponin T 0.066ug/L (0.0-0.011) Test 07/04/16 05:15 07/04/16 17:56 07/05/16 18:10 07/06/16 05:47 Phosphorus Level 2.6mg/dL (2.5-4.9) Iron Level 17ug/dL (35-150) Total Iron Binding Capacity 206ug/dL (250-450) Percent Iron Saturation 8%sat (15-50) Unsaturated Iron Binding 188.5ug/dL Ferritin 342ng/mL (13-150) Vitamin B12 Level 805pg/mL (211-946) Vitamin D 25-Hydroxy 5.2ng/mL (30.0-100.0) Folate 7.3ng/mL (>3.0) Parathyroid Hormone (Intact) 376pg/mL (15-65) Digoxin Level 0.8nG/mL (0.9-2.0) Urine Random Creatinine 49mg/dL (15-278) Urine Random Total Protein 17mg/dL (0-15) Magnesium Level 3.1mg/dL (1.6-2.6) Prothrombin Time 13.9sec (8.1-12.5) Prothromb Time International Ratio 1.29ratio Activated Partial Thromboplast Time 36.9sec (22.8-33.0) Test 07/06/16 05:48 White Blood Count 6.1th/mm3 (3.8-10.1) Red Blood Count 3.65mil/mm3 (3.90-5.20) Hemoglobin 10.5g/dL (12.0-15.6) Hematocrit 31.9% (35.0-46.0) Mean Corpuscular Volume 87.4fL (81-100) Mean Corpuscular Hemoglobin 28.8pg (27.0-35.0) Mean Corpuscular Hemoglobin Concent 32.9% (32.0-37.0) Red Cell Distribution Width 16.3% (12.3-15.4) Platelet Count 108bil/L (150-400) Neutrophils (%) (Auto) 69.2% (40-74) Lymphocytes (%) (Auto) 18.6% (14-46) Monocytes (%) (Auto) 8.0% (4-12) Eosinophils (%) (Auto) 3.7% (0-5) Basophils (%) (Auto) 0.3% (0-3) Sodium Level 141mEq/L (134-144) Potassium Level 3.9mEq/L (3.5-5.2) Chloride Level 101mEq/L (97-108) Carbon Dioxide Level 22mmol/L (18-29) Blood Urea Nitrogen 25mg/dL (8-27) Creatinine 2.36mg/dL (0.57-1.00) Estimat Glomerular Filtration Rate 28mL/min (>59) Glucose Level 104mg/dL (60-99) Calcium Level 8.4mg/dL (8.5-10.1) Total Bilirubin 0.9mg/dL (0.0-1.2) Aspartate Amino Transf (AST/SGOT) 13U/L (0-50) Alanine Aminotransferase (ALT/SGPT) 5U/L (0-32) Alkaline Phosphatase 44U/L (25-165) Total Protein 5.8g/dL (6.4-8.4) Albumin 3.2g/dL (3.4-5.0) Procalcitonin 0.08ng/mL (0.00-0.08) Plan Impression Patient chart reviewed, patient interviewed and anesthestic plan with risks, benefits, and alternatives discussed, and informed consent obtained. NPO Status: > 8 hours ASA Physical Status: ASA3 Severe Disease Anesthetic Plan: MAC Bene/Risks/Altern/Consents: Yes HP Complete Prior to Induction: Yes Jos Odell MD Jul 06, 2016 14:15
--- NOTE | 2016-07-06 15:13 | PCM.ENDEGD ---
EGD Date of Service: Jul 06, 2016 Physician Blaine Maciel MD Pre Procedure Diagnosis: Dysphagia Post Procedure Dx & Findings: Benign-appearing narrowing at the level of upper esophageal sphincter. Unable to get the scope through. Procedure Esophagogastroduodenoscopy PROCEDURE IN DETAIL: The patient was placed in left lateral decubitus position. Bite block was placed. Scope lubricated, placed in posterior pharynx, passed through the cricopharyngeus and esophagus. As soon as we saw the upper esophageal sphincter , the lumen became narrow and tail to insufflate. Some scarring noted. Some resistance felt as well. Impression Narrowing at the level of upper esophageal sphincter. Benign appearing. Most likely the cause of dysphagia. Recommendation Full liquid diet ENT consult Presedation Assessment Risks and Benefits Informed consent was obtained from the patient after all risks and benefits including but not limited to drug reaction, infection, pain, bleeding, perforation, as well as alternatives were discussed. Patient monitoring Continuous pulse oximetry, cardiac monitoring, blood pressure monitoring, IV access, and oxygen at 2L per nasal cannula. Complications There were no periprocedural complications identified. Post Procedure Plan Post Procedure Recommendations 1. Restrict activities today. 2. Resume normal activities in the morning. 3. Resume medications. 4. GERD behavioral modification: - Avoid fatty, acidic, spicy, large meals - Do not lie down after meals - Do not eat or drink anything for at least 2 1/2 hours before going to bed at night - Discontinue tobacco and alcohol - Decrease or avoid caffeine - Avoid chocolate and mints - Decrease weight - Avoid aspirin and non steroidal anti-inflammatory agents (NSAID) such as Aleve, Advil, Mobic, Naproxen, Ibuprofen, etc 5. Add proton pump inhibitor. Take 30 minutes before 1st meal of the day. 6. Patient informed of normal post procedure side effects as bloating, drowsiness, blood streaking in the stool 7. If gastric biopsy reveal H.pylori, continue with appropriate treatment 8. If small bowel biopsy reveals celiac, continue with appropriate treatment 9. Please don't hesitate to call me with any questions Markus Dunlap MD Jul 06, 2016 15:13
--- NOTE | 2016-07-06 15:17 | PCM.ENDCOL ---
Colonoscopy Date of Service: Jul 06, 2016 Physician Blaine Maciel MD Pre Procedure Diagnosis: Blood in stools Post Procedure Dx & Findings: Hemorrhoids poor prep rectal lesion Procedure Colonoscopy PROCEDURE IN DETAIL: Prep poor After unremarkable rectal examination the Olympus video colonoscope was inserted patient's anal canal and was advanced to cecum. Landmarks were identified including the ileocecal valve and appendiceal orifice. There was a glimpse of the orifice. Scope was withdrawn systematically. Visualized colonic mucosa showed healthy shiny mucosa with normal healthy-appearing vasculature. The cecum was full of fecal material. Aggressive washing done. But visualization was significantly compromised in this area. There was a large diverticulus right next to the ileocecal valve. Fecal material was in there. In the ascending colon, there was a fold that looked irritated and somewhat red with possible erosion. Biopsy obtained. Persistent bleeding noted. One hemolytic clip deployed. Hemostasis achieved. In the rectum retroflexion was done which showed a large about 3 cm polypoid lesion which was actually bleeding. It extended to the dentate line. Several biopsies obtained. Impression Rectal lesion that was bleeding. Hemorrhoids Diverticulum Inflamed mucosa Recommendation Surgical evaluation. This is the cause of the bleeding from the rectum. We will reevaluate risk and benefits before restarting anticoagulation today. Presedation Assessment Risks and Benefits Informed consent was obtained from the patient after all risks and benefits including but not limited to drug reaction, infection, pain, bleeding, perforation, as well as alternatives were discussed. Patient monitoring Continuous pulse oximetry, cardiac monitoring, blood pressure monitoring, IV access, and oxygen at 2L per nasal cannula. Complications There were no periprocedural complications identified. Post Procedure Plan Post Procedure Recommendations 1. Restrict activities today. 2. Resume normal activities in the morning. 3. Resume medications. 4. Patient informed of normal post procedure side effects as bloating, drowsiness, blood streaking in the stool. 5. average risk CRCS. If colon polyps come back as: -Hyperplastic- can repeat colonoscopy in 10 years -Tubular adenoma- repeat colonoscopy in 5 years -Tubulovillous/villous adenoma- repeat colonoscopy in 3 years -If any dysplasia- return to clinic as soon as possible 6. Please don't hesitate to call me with any questions. Markus Dunlap MD Jul 06, 2016 15:17
--- NOTE | 2016-07-06 15:49 | PCM.ANEP1 ---
Post Anesthesia Phase 1 PACU Phase 1 Assessment Date of Service: Jul 06, 2016 Vital Signs Vital Signs Date Time Temp Pulse Resp B/P Pulse Ox O2 Delivery O2 Flow Rate FiO2 07/06/16 15:24 74 16 148/70 100 Room Air 07/06/16 15:20 76 16 148/69 100 Room Air 07/06/16 15:10 35.9 70 16 145/74 100 Nasal Cannula 2 07/06/16 13:59 36.6 87 16 161/90 98 Room Air 07/06/16 12:30 36.4 80 18 162/82 97 Room Air 07/06/16 10:55 80 07/06/16 08:11 36.3 71 16 168/76 97 Room Air Anesthetic Administered: MAC Level of Alertness: Awake, talking OLIVERA's with Equal Strength: Yes Pain: No Nausea or Vomiting: No Oxygen Delivery: Nasal Cannula Lungs: Normal Air Movement Jos Odell MD Jul 06, 2016 15:49
--- NOTE | 2016-07-06 15:50 | PCM.ANEP2 ---
Post Anesthesia Evaluation ASA/CMS Post Anesthesia Date of Service: Jul 06, 2016 VS in Patient's Normal Range?: Yes Resp Stable; Airway Patent?: Yes CV Function & Hydration Stable: Yes Mental Status Recovered?: Yes Pain control Satisfactory?: Yes N/V Control Satisfactory?: Yes Jos Odell MD Jul 06, 2016 15:50
--- NOTE | 2016-07-06 17:57 | PCM.PNNEPH ---
Subjective Date of Service Jul 06, 2016 Subjective Patient's renal function continues to improve with cautious IV hydration. She states that she is feeling considerably stronger and no chest pain, shortness of breath, nausea or vomiting. Her I's and O's for the last 24 hour showed 20 7 :55 PM and 750 out but in the last 8 hours she said 2650 out. Her hemoglobin is 10.5, sodium 141, potassium 3.9, chloride 101, bicarbonate 22, BUN and creatinine are 25 and 2.36 respectively. Exam Vital Signs Vital Sign - Last Date Time Temp Pulse Resp B/P Pulse Ox O2 Delivery O2 Flow Rate FiO2 07/06/16 16:14 36.5 87 160/72 98 Room Air 07/06/16 15:24 16 07/06/16 15:10 2 Intake and Output 07/05/16 07/05/16 07/06/16 Cumulative From/Thru 15:00 23:00 07:00 07/01/16 14:23 - 07/06/16 05:05 Intake Total 1710 ml 3200 ml 87872 ml Output Total 250 ml 2650 ml 7400 ml Balance 1460 ml 550 ml 7094 ml Intake Oral 510 ml 3200 ml 3710 ml IV Total 1200 ml 72703 ml Packed Cells 344 ml Output Urine Total 250 ml 3500 ml Stool Total 2650 ml 2650 ml Urine/Stool Mix 1250 ml # Voids 7 # Bowel Movements 1 11 Exam Neck is supple without adenopathy thyromegaly S distention. Lungs are clear to auscultation. Heart was regular and rhythmical with a soft systolic murmur. Abdomen soft without any tenderness rebound guarding masses or hepatosplenomegaly. Additional 20 evidence of any clubbing cyanosis or edema. Skin turgor remained slightly diminished dose imperative be improved. Lab and Diagnostics Result Diagram: 07/06/1648 07/06/16 0548 X-Rays, CTs and MRIs PROCEDURE: CT KUB IMPRESSION: 1. No hydronephrosis, nephrolithiasis, hydroureter, or ureterolithiasis. 2. No acute intra-abdominal findings. Normal appendix. 3. Cholelithiasis. No findings to suggest choledocholithiasis or acute cholecystitis. 4. Simple appearing right renal cyst which is incompletely characterized in the absence of contrast. 5. Subcentimeter right mid pole hyperdense renal cyst. Cystic neoplasm cannot be excluded. If further characterization is warranted, consider renal ultrasound. 6. Aortic atherosclerosis. Dictated by: Cynthia Magallanes M.D. on 07/01/2016 at 18:14 Cardiac Echo Impressions Interpretation Summary The patient was in atrial fibrillation with controlled ventricular rate during the exam. The left ventricle is normal in size. Left ventricular wall thickness is mildly increased. The ejection fraction is estimated to be 50-55%. There is a mild dyssynchronous contraction pattern, consistent with a conduction abnormality. There is apical severe hypokinesis. This is unchanged compared to the previous study. The right ventricle is normal in size and function. The right ventricular systolic pressure is estimated at 58 mmHg assuming a right atrial pressure of 15 mm Hg. The IVC is dilated (diameter is greater than 2.1 cm) and it collapses less than 50% with a sniff. This suggests a high right atrial pressure of 15 mmHg. Both atria are severely dilated. A secundum type atrial septal defect is present. The atrial septal defect is small. There is moderate to severe mitral regurgitation. There is an eccentric jet of mitral regurgitation that is directed posterior- laterial. This is unchanged compared to the previous study. Multiple liver cysts are noted. No other echocardiographic abnormalities seen. Reading Physician:02:49 PM Additional Diagnostics X-RAY BARIUM SWALLOW ESOPHAGUS IMPRESSION: Esophageal dysmotility and small reducible hiatal hernia. Dictated by: Kevin Capellan RR Interpreted: Jessica Mendoza MD on 07/04/2016 at 10: 14 Transcribed by: CATHY on 07/04/2016 at 10:15 Approved by: Jessica Mendoza M.D. on 07/04/2016 at 16:49 Plan Impression Impression #1 acute on chronic kidney injury secondary to dehydration which appears to be resolving number to baseline chronic kidney disease stage III/ #3 for anemia secondary to chronic kidney disease. Recommendations #1 overload to continue on the IV fluids for another 24 hours and follow her labs. Most likely she will be ready to be discharged with the end of the week. Plan The patient will continue hyperbaric treatments. Will return () for treatment #() Manoj Langford DO Jul 06, 2016 17:57
--- NOTE | 2016-07-06 18:10 | NUR ---
Endo Pt. left room around 1415 for endo for her procedure and was NPO until then, meds were ok to be given. Pt. left with VS stable and no c/o pain, CP, or SOB. Pt. returned back to room 2030 PCC around 1615 from endo with VS stable and no c/o pain, SOB, or CP. Pt. at this time is on her bed resting comfortably.
--- NOTE | 2016-07-06 19:33 | PCM.PNMED ---
Subjective Date of Service Jul 06, 2016 Subjective overnight: Patient was nothing by mouth after midnight and finish her GoLYTELY prep prior to endoscopy and colonoscopy by GI on 07/06/2016. No acute events otherwise noted Today: Patient states that she has had no recurrence of her lower GI bleeding. She states she has been stooling significantly since finishing her GoLYTELY. The patient states that she cannot take generic atenolol for blood pressure that she wants to take the brand name. She currently understands the plan for her GI procedures. Exam Vital Signs Vital Sign - Last Date Time Temp Pulse Resp B/P Pulse Ox O2 Delivery O2 Flow Rate FiO2 07/06/16 02:58 36.4 88 18 159/93 97 Room Air Intake and Output 07/05/16 07/05/16 07/06/16 Cumulative From/Thru 15:00 23:00 07:00 07/01/16 14:23 - 07/06/16 05:05 Intake Total 1710 ml 3200 ml 37314 ml Output Total 250 ml 2650 ml 7400 ml Balance 1460 ml 550 ml 7094 ml Intake Oral 510 ml 3200 ml 3710 ml IV Total 1200 ml 61465 ml Packed Cells 344 ml Output Urine Total 250 ml 3500 ml Stool Total 2650 ml 2650 ml Urine/Stool Mix 1250 ml # Voids 7 # Bowel Movements 1 11 Exam General: patient is an elderly female laying comfortably in hospital bed, no acute distress Eyes: PERRLA, EOMI, sclera anicteric HENT: Head is normocephalic atraumatic, dry tongue and buccal mucosa, no oral thrush appreciated; neck: supple, trachea midline, no JVD Heart: regular rate and rhythm without murmurs gallops or rubs Lungs: clear to auscultation bilaterally, no wheezing rales and rhonchi Abdomen: soft, nontender, nondistended, with normoactive bowel tones, well healed old horizontal surgical scar noted in the right abdominal area consistent with prior bowel surgery Extremities: Moderate non-pitting edema present in both lower extremities Pulses: present bilaterally at dorsalis pedis posterior tibialis and radial. Skin: warm and dry there are no rashes. Psych: alert and oriented to person, place and time Neuro: cranial nerves are grossly intact, able to move all extremities grossly, normal speech : no cuevas in place Lab and Diagnostics Result Diagram: 07/06/16 0548 07/06/16 0548 X-Rays, CTs and MRIs PROCEDURE: CT KUB IMPRESSION: 1. No hydronephrosis, nephrolithiasis, hydroureter, or ureterolithiasis. 2. No acute intra-abdominal findings. Normal appendix. 3. Cholelithiasis. No findings to suggest choledocholithiasis or acute cholecystitis. 4. Simple appearing right renal cyst which is incompletely characterized in the absence of contrast. 5. Subcentimeter right mid pole hyperdense renal cyst. Cystic neoplasm cannot be excluded. If further characterization is warranted, consider renal ultrasound. 6. Aortic atherosclerosis. Dictated by: Cynthia Magallanes M.D. on 07/01/2016 at 18:14 Cardiac Echo Impressions Interpretation Summary The patient was in atrial fibrillation with controlled ventricular rate during the exam. The left ventricle is normal in size. Left ventricular wall thickness is mildly increased. The ejection fraction is estimated to be 50-55%. There is a mild dyssynchronous contraction pattern, consistent with a conduction abnormality. There is apical severe hypokinesis. This is unchanged compared to the previous study. The right ventricle is normal in size and function. The right ventricular systolic pressure is estimated at 58 mmHg assuming a right atrial pressure of 15 mm Hg. The IVC is dilated (diameter is greater than 2.1 cm) and it collapses less than 50% with a sniff. This suggests a high right atrial pressure of 15 mmHg. Both atria are severely dilated. A secundum type atrial septal defect is present. The atrial septal defect is small. There is moderate to severe mitral regurgitation. There is an eccentric jet of mitral regurgitation that is directed posterior- laterial. This is unchanged compared to the previous study. Multiple liver cysts are noted. No other echocardiographic abnormalities seen. Reading Physician:02:49 PM Additional Diagnostics X-RAY BARIUM SWALLOW ESOPHAGUS IMPRESSION: Esophageal dysmotility and small reducible hiatal hernia. Dictated by: Kevin CONROY Interpreted: Jessica Mendoza MD on 07/04/2016 at 10: 14 Transcribed by: CATHY on 07/04/2016 at 10:15 Approved by: Jessica Mendoza M.D. on 07/04/2016 at 16:49 Assessment & Plan Patient is an 86-year-old female with a history of CAD status post CABG and stent, afib on warfarin, gout, neuropathy. She presented to [facility] due to dysphagia and poor oral intake of 3 weeks. Admitted for evaluation and management of RICKY. Hospital day #6 1. lower GI bleed, acute, present on admission, stable - Concern for likely thrombosed and active bleeding internal hemorrhoids - Has received 1 unit PRBC's during this admission. - Hemoglobin has remained stable since transfusion on 07/02 - continue holding outpatient warfarin and aspirin - Continue to monitor CBC. - GI to perform a colonoscopy and EGD later today, with recommendations to come after - vitamin K given today to treat elevated INR, with possible FFP given tomorrow if INR not corrected 2. acute blood loss anemia secondary to lower GI bleed, acute, present on admission. - patient likely also has anemia of chronic disease given elevated ferritin and low TIBC - Treatment as above in #5. 3. Dysphagia, subacute, present on admission, under evaluation - Barium swallow ordered showed mild esophageal dysmotility and a small hiatal hernia. - GI consulted for possible upper endoscopy and given acute blood loss anemia consideration for lower GI scope - Antiemetic available PRN nausea. - vitamin K given today to treat elevated INR with correction to 1.2 prior to scope - GI to perform a colonoscopy and EGD later today, with recommendations to come after 4. Acute kidney failure, present on admission, treated improving - no previous records of chronic kidney disease - Most likely due to poor intake secondary to dysphagia. - Continue IV fluids at 100 ml/hr. - nephrology consulted has seen the patient and we appreciate her input. - consideration for restarting outpatient ACEI if hypertensive - Continue to monitor BMP. 5. Hypokalemia, not present on admission, treated stable - likely due to over hydration with bicarb causing mild alkalosis -nephrology following, converted fluids to 1/2 NS with potassium - Potassium chloride 20 mEq 3 times a day in liquid form for dysphagia. 6. Elevated troponin, acute, present on admission. - Likely due to hypovolemia induced tachycardia from RICKY, with possible CKD. - Continue telemetry. - Patient asymptomatic and will not continue to follow the lab value. Low threshold to repeat if patient has chest pain. 7. CAD s/p CABG and stents - Holding her home medications including ASA, atorvastatin, and beta sonny. Will restart when possible 8. Atrial fibrillation on chronic anticoagulation, presume stable. - Holding anticoagulation due to concerns of lower GI bleed. - Holding digoxin secondary to toxicity. - Continue telemetry. 9. Hypothyroidism, chronic, presume stable. - Holding home Synthroid - Thyroid testing show correct dosing of levothyroxine 10. Digoxin toxicity, acute, present on admission. - Likely secondary to her renal failure and fluid depleted status. - Dig level 2.1at admission. Holding digoxin at this time. - Will continue to follow lab value. - Continue telemetry - Antacid available PRN. - Tylenol available PRN mild pain, fever. - Melatonin available PRN insomnia. Disposition: awaiting further evaluation and determination of need for more invasive intervention such as general surgery of ENT procedures after GI scopes. Anticipate a few more days of admission. Pain Evaluation: Adequate Pain Control VTE Prophylaxis: SCDs VTE Mechanical Devices: Intermittant Pneumatic CD Resuscitation Status: DNR/DNI:Do Not Resuscitate/Intubate Attending Statement The patient was seen and examined together with Dr. Baptiste on 07-06-16 and I agree with the history, exam and plan as outlined in the note above. Olaf Llamas DO Jul 06, 2016 08:00 Giovanna Dash MD Jul 07, 2016 13:51
[2016-07-07] VITALS (8 sets, daily range): BP systolic 148–163; BP diastolic 65–90; PULSE 58–86; RESP 17–20; O2SAT 94–98
--- NOTE | 2016-07-07 05:02 | NUR ---
NOC: Uneventful, restful evening. Vitals stable. Pt denies any pain- sleeping thoughout majority of the night. No bleeding/ blood stools noted. Care ongoing.
[2016-07-07 05:49] LABS: BASOPHILS % (AUTO) 0.2 % (0-3); EOSINOPHILS % (AUTO) 4.5 % (0-5); MONOCYTES % (AUTO) 6.4 % (4-12); Mean Corpuscular Hemoglobin 28.6 pg (27.0-35.0); Mean Corpuscular Volume 89.9 fL (81-100); NEUTROPHILS % (AUTO) 62.9 % (40-74); Platelet Count 81 bil/L (150-400)
[2016-07-07 06:12] LABS: INR 1.1 ratio
[2016-07-07 06:18] LABS: Magnesium 2.2 mg/dL (1.6-2.6)
[2016-07-07] MEDS: Potassium Chloride 20 mEq/15 mL 15mL Oral Soln PO SCH ×3 (07:38→17:11)
--- NOTE | 2016-07-07 11:54 | PCM.PNNEPH ---
Subjective Date of Service Jul 07, 2016 Subjective Patient's renal function appears to have stabilized. Suspicion is she does have a fair component of chronic kidney disease which I feel with her baseline. She states that she feels quite well and denies any anorexia, nausea, vomiting, chest pain or shortness of breath. Her intake and output for the last 24 hour shows 40-49 in and 39 and 10 out. Sodium this morning was 139, potassium 4.3, chloride of 113, bicarbonate 21, BUN and creatinine were 19 and 2.38. Exam Vital Signs Vital Sign - Last Date Time Temp Pulse Resp B/P Pulse Ox O2 Delivery O2 Flow Rate FiO2 07/07/16 11:25 36.7 77 18 152/76 98 Room Air 07/06/16 15:10 2 Intake and Output 07/06/16 07/06/16 07/07/16 Cumulative From/Thru 15:00 23:00 07:00 07/01/16 14:23 - 07/07/16 05:23 Intake Total 1049 ml 1072 ml 95651 ml Output Total 1250 ml 600 ml 9250 ml Balance -201 ml 472 ml 7365 ml Intake Oral 400 ml 200 ml 4310 ml IV Total 649 ml 872 ml 85842 ml Packed Cells 344 ml Output Urine Total 300 ml 3800 ml Stool Total 2650 ml Urine/Stool Mix 1250 ml 300 ml 2800 ml # Voids 5 12 # Bowel Movements 11 Exam HEENT examination is remarkable again for pale sclera. Neck is supple without adenopathy thyromegaly or jugular venous distention. Lungs are clear. Heart was regular rhythm with soft systolic murmur. Abdomen soft without any tenderness or rebound guarding masses or hepatosplenomegaly. Extremities are 20 evidence of any clubbing cyanosis or edema. Skin turgor is good and no evidence of any rashes. Lab and Diagnostics Result Diagram: 07/07/1653307/07/16533 X-Rays, CTs and MRIs PROCEDURE: CT KUB IMPRESSION: 1. No hydronephrosis, nephrolithiasis, hydroureter, or ureterolithiasis. 2. No acute intra-abdominal findings. Normal appendix. 3. Cholelithiasis. No findings to suggest choledocholithiasis or acute cholecystitis. 4. Simple appearing right renal cyst which is incompletely characterized in the absence of contrast. 5. Subcentimeter right mid pole hyperdense renal cyst. Cystic neoplasm cannot be excluded. If further characterization is warranted, consider renal ultrasound. 6. Aortic atherosclerosis. Dictated by: Cynthia Magallanes M.D. on 07/01/2016 at 18:14 Cardiac Echo Impressions Interpretation Summary The patient was in atrial fibrillation with controlled ventricular rate during the exam. The left ventricle is normal in size. Left ventricular wall thickness is mildly increased. The ejection fraction is estimated to be 50-55%. There is a mild dyssynchronous contraction pattern, consistent with a conduction abnormality. There is apical severe hypokinesis. This is unchanged compared to the previous study. The right ventricle is normal in size and function. The right ventricular systolic pressure is estimated at 58 mmHg assuming a right atrial pressure of 15 mm Hg. The IVC is dilated (diameter is greater than 2.1 cm) and it collapses less than 50% with a sniff. This suggests a high right atrial pressure of 15 mmHg. Both atria are severely dilated. A secundum type atrial septal defect is present. The atrial septal defect is small. There is moderate to severe mitral regurgitation. There is an eccentric jet of mitral regurgitation that is directed posterior- laterial. This is unchanged compared to the previous study. Multiple liver cysts are noted. No other echocardiographic abnormalities seen. Reading Physician:02:49 PM Additional Diagnostics X-RAY BARIUM SWALLOW ESOPHAGUS IMPRESSION: Esophageal dysmotility and small reducible hiatal hernia. Dictated by: Kevin Capellan [facility] Interpreted: Jessica Mendoza MD on 07/04/2016 at 10: 14 Transcribed by: CATHY on 07/04/2016 at 10:15 Approved by: Jessica Mendoza M.D. on 07/04/2016 at 16:49 Plan Impression Impression #1 stage 3/4 chronic kidney disease #2 acute kidney injury due to dehydration which has resolved #3 iron deficiency #4 anemia secondary to chronic kidney disease. Recommendations #1 from my point of view she can be discharged however on I noted GI is still evaluating her for her significant weight loss and that seems to be the important issue right now. We will also continue her erythropoietin supplementation. Plan The patient will continue hyperbaric treatments. Will return () for treatment #() Manoj Langford DO Jul 07, 2016 11:54
[2016-07-07] MEDS ORDERED: Darbepoetin Alfa 60 mCg/0.3 mL Inj SUBQ ONE (11:55)
[2016-07-07] MEDS ORDERED: Iron Sucrose Inj 200 MG in 0.9% Sodium Chloride 100 ML IV ONE (11:55)
[2016-07-07] MEDS: Ondansetron 2 mg/mL 2 mL Inj IVPUSH PRN (15:44)
--- NOTE | 2016-07-07 16:37 | NUR ---
NUTRITION FOLLOW UP: ASSESS: 86 YO F admitted with acute renal failure related to dysphagia and poor oral intake for past 3 weeks. Pt on full liquid diet per ST. She was found to have stricture in her throat making it difficult to swallow. ENT is being consulted. In the meantime the goal is to bulk up her nutrition status since she has had a 20 lbs wt loss x1 month (14% = significant). Pt states she cannot even tolerate pudding. She does not like Ensure but is willing to drink it to prevent further wt loss. Pt also notes that when she gets up to go to the bathroom and return to bed she goes into Afib, making it difficult for her to mobilize very much. She is reporting diarrhea after eating questioning her ability to absorb nutrients. PMHx: CAD status post CABG and stent, A-fib on warfarin, gout, neuropathy, hypothyroid. DIET: Full Liquid, PO 10-50% LABS: Cr 2.38, Ca 8.3, Albumin 2.9 MEDICATIONS: Zofran GI: 4 BM 07/05 SKIN: No issues reported. ANTHROPOMETRICS: Current Wt: 54.6 kg, BMI: 21.7 kg/m2. IBW: 51.1 kg ESTIMATED NEEDS: Calories: 3534-7594 kcal/day (25-35 kcal/kg BW) Protein: 55-65 g/day (1.0-1.2 g/kg BW) Fluid: Approx. 1365 mL (25 mL/kg BW) NUTRITION DIAGNOSIS: 1) Inadequate oral intake related to chewing / swallowing difficulties, as evidenced by inability to tolerate oral intake past 3 weeks, barium swallow ordered and is pending.--PERSISTS. INTERVENTION: 1) Discussed high calorie/protein full liquid diet 2) Recommend pt cut Ensure w/ milk and keep it cold to make it more palatable 3) Will send: Ensure on all trays and between meals (5x/d), yogurt TID, and milk TID. 4) Will initiate calorie count per [facility]. Requested nursing cj foods that pt has not eaten in addition to the percentage of her tray she has eaten. 5) High calorie/protein recipe book provided MONITOR/EVALUATE: Diet advance, NPO status, labs, GI/nutrition status. Follow per high nutrition risk guidelines.
--- NOTE | 2016-07-07 18:16 | NUR ---
Nutrition/Diarrhea Pt. has been having diarrhea this shift and a stool sample was sent to lab this afternoon. Pt. states having abdominal cramping at times and that is when she needs to go to the bathroom. Pt. also stated having nausea this afternoon and I admin. PRN zofran and the issue as resolved as Pt. states no longer feeling nausea. Pt. is to have her calorie intake counted per MD orders as of now.
--- NOTE | 2016-07-07 20:29 | PCM.PNMED ---
Subjective Date of Service Jul 07, 2016 Subjective GASTROENTEROLOGY PROGRESS NOTE She states she feels rather well this morning. Denies any SOB, CP, cough, ongoing blood in stool. Continues to endorse diarrhea that is chronic, and unchanged from her reported norm. Tolerating po intake well thus far. Exam Vital Signs Vital Sign - Last Date Time Temp Pulse Resp B/P Pulse Ox O2 Delivery O2 Flow Rate FiO2 07/07/16 07:29 36.8 85 18 163/84 97 Room Air 07/06/16 15:10 2 Intake and Output 07/06/16 07/06/16 07/07/16 Cumulative From/Thru 15:00 23:00 07:00 07/01/16 14:23 - 07/07/16 05:23 Intake Total 1049 ml 1072 ml 61287 ml Output Total 1250 ml 600 ml 9250 ml Balance -201 ml 472 ml 7365 ml Intake Oral 400 ml 200 ml 4310 ml IV Total 649 ml 872 ml 82547 ml Packed Cells 344 ml Output Urine Total 300 ml 3800 ml Stool Total 2650 ml Urine/Stool Mix 1250 ml 300 ml 2800 ml # Voids 5 12 # Bowel Movements 11 Exam General: Alert, Oriented X3, Cooperative, No Acute Distress Eyes: EOMI, Scleral Anicteric Nose: Mucous Membr Moist/Cove Mouth: Mucous Membr Moist/Cove Chest & Lungs: Auscultation (Clear bilaterally with adequate air flow all villarreal), No adventitious breath sounds Cardiovascular: Regular Rate/Rhythm, Normal S1, Normal S2, No Murmurs/Rubs/ Gallops Pulses: Radial (Equal and bilateral) Abdomen: Non-tender, Non-distended, Normoactive bowel tones, Soft Musculoskeletal: Normal Range of Motion Extremities: Warm, Edema (Trace dependent edema noted bilateral ankles) Neurological: Cranial Nerves 2-12 Intact, Normal Speech (without slur) Lab and Diagnostics Result Diagram: 07/07/1653307/07/16 0534 X-Rays, CTs and MRIs PROCEDURE: CT KUB IMPRESSION: 1. No hydronephrosis, nephrolithiasis, hydroureter, or ureterolithiasis. 2. No acute intra-abdominal findings. Normal appendix. 3. Cholelithiasis. No findings to suggest choledocholithiasis or acute cholecystitis. 4. Simple appearing right renal cyst which is incompletely characterized in the absence of contrast. 5. Subcentimeter right mid pole hyperdense renal cyst. Cystic neoplasm cannot be excluded. If further characterization is warranted, consider renal ultrasound. 6. Aortic atherosclerosis. Dictated by: Cynthia Magallanes M.D. on 07/01/2016 at 18:14 Cardiac Echo Impressions Interpretation Summary The patient was in atrial fibrillation with controlled ventricular rate during the exam. The left ventricle is normal in size. Left ventricular wall thickness is mildly increased. The ejection fraction is estimated to be 50-55%. There is a mild dyssynchronous contraction pattern, consistent with a conduction abnormality. There is apical severe hypokinesis. This is unchanged compared to the previous study. The right ventricle is normal in size and function. The right ventricular systolic pressure is estimated at 58 mmHg assuming a right atrial pressure of 15 mm Hg. The IVC is dilated (diameter is greater than 2.1 cm) and it collapses less than 50% with a sniff. This suggests a high right atrial pressure of 15 mmHg. Both atria are severely dilated. A secundum type atrial septal defect is present. The atrial septal defect is small. There is moderate to severe mitral regurgitation. There is an eccentric jet of mitral regurgitation that is directed posterior- laterial. This is unchanged compared to the previous study. Multiple liver cysts are noted. No other echocardiographic abnormalities seen. Reading Physician:02:49 PM Additional Diagnostics X-RAY BARIUM SWALLOW ESOPHAGUS IMPRESSION: Esophageal dysmotility and small reducible hiatal hernia. Dictated by: Kevin Capellan [facility] Interpreted: Jessica Mendoza MD on 07/04/2016 at 10: 14 Transcribed by: CATHY on 07/04/2016 at 10:15 Approved by: Jessica Mendoza M.D. on 07/04/2016 at 16:49 Assessment & Plan GASTROENTEROLOGY CONSULTATION NOTE Ms. 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 GI was consulted to assist in evaluation. CT KUB 07/01: No hydronephrosis, nephrolithiasis, hydroureter, or ureterolithiasis. No acute intra-abdominal findings. Normal appendix. Cholelithiasis. No findings to suggest choledocholithiasis or acute cholecystitis. Simple appearing right renal cyst which is incompletely characterized in the absence of contrast. Subcentimeter right mid pole hyperdense renal cyst. Cystic neoplasm cannot be excluded. If further characterization is warranted, consider renal ultrasound. Aortic atherosclerosis. XR Barium swallow 07/04: Mild esophageal dysmotility, no elicited gastroesophageal reflux, small reducible hiatal hernia. EGD 07/06: Narrowing at the level of upper esophageal sphincter with scarring. Benign appearing. Most likely the cause of dysphagia. Could not advance scope to evaluate any further due to resistance being felt. 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 Anaya, and recommended visualization and dilation. Once this is dilated, we could proceed with an upper endoscopy. This can potentially be done during the hospitalization. However, ENT recommended for follow up through their office for further evaluation. Since ENT is unable to provide this service during this hospitalization, we will sign off and have her follow-up with us after ENT evaluation in the GI clinic. - Recommend surgical follow up for abnormal colonoscopy findings of rectal lesion. Awaiting biopsy. I contacted Dr. Owen to be available for backup during the endoscopic intervention. This is because if I did a hemorrhoid, there could be significant bleeding which I may not be able to stop. Hemorrhoidectomy may be needed. After speaking with Dr. Owen, she prefers to resect this lesion transanally all at once. However I agreed that this should not be done until her nutritional status improves. - Dr. Owen contacted by GI team; recommendation to follow up outpatient for surgical options; options likely dependent on results of biopsies - Recommend improved nutrition with items that she can safely tolerate - Ensure/similar 3 cans 3x/daily recommended Thank you for this consult, we are signing off at this time. Please do not hesitate to contact us with any questions or concerns. Total time: 40 minutes I have seen and examined the patient with the resident. Agree with above. VTE Prophylaxis: SCDs VTE Mechanical Devices: Intermittant Pneumatic CD Resuscitation Status: DNR/DNI:Do Not Resuscitate/Intubate Edna Colin DO Jul 07, 2016 09:48 Markus Dunlap MD Jul 07, 2016 21:28
--- NOTE | 2016-07-07 20:46 | PCM.PNMED ---
Subjective Date of Service Jul 07, 2016 Subjective overnight: No acute events overnight Today: Patient states that she has trouble swallowing anything thicker than her stated. Patient denies any more rectal bleeding. She states that she is continuing to have diarrhea which will be sent for PCR biofire. Exam Vital Signs Vital Sign - Last Date Time Temp Pulse Resp B/P Pulse Ox O2 Delivery O2 Flow Rate FiO2 07/07/16 07:29 36.8 85 18 163/84 97 Room Air 07/06/16 15:10 2 Intake and Output 07/06/16 07/06/16 07/07/16 Cumulative From/Thru 15:00 23:00 07:00 07/01/16 14:23 - 07/07/16 05:23 Intake Total 1049 ml 1072 ml 83299 ml Output Total 1250 ml 600 ml 9250 ml Balance -201 ml 472 ml 7365 ml Intake Oral 400 ml 200 ml 4310 ml IV Total 649 ml 872 ml 73737 ml Packed Cells 344 ml Output Urine Total 300 ml 3800 ml Stool Total 2650 ml Urine/Stool Mix 1250 ml 300 ml 2800 ml # Voids 5 12 # Bowel Movements 11 Exam General: patient is an elderly female laying comfortably in hospital bed, no acute distress Eyes: PERRLA, EOMI, sclera anicteric HENT: Head is normocephalic atraumatic, dry tongue and buccal mucosa, no oral thrush appreciated; neck: supple, trachea midline, no JVD Heart: Irregularly irregular rate and rhythm mild he noted without murmurs gallops or rubs Lungs: clear to auscultation bilaterally, no wheezing rales and rhonchi Abdomen: soft, nontender, nondistended, with normoactive bowel tones, well healed old horizontal surgical scar noted in the right abdominal area consistent with prior bowel surgery Extremities: Moderate non-pitting edema present in both lower extremities Pulses: present bilaterally at dorsalis pedis posterior tibialis and radial. Skin: warm and dry there are no rashes. Psych: alert and oriented to person, place and time Neuro: cranial nerves are grossly intact, able to move all extremities grossly, normal speech : no cuevas in place Lab and Diagnostics Result Diagram: 07/07/16 0534 07/07/16 0534 X-Rays, CTs and MRIs PROCEDURE: CT KUB IMPRESSION: 1. No hydronephrosis, nephrolithiasis, hydroureter, or ureterolithiasis. 2. No acute intra-abdominal findings. Normal appendix. 3. Cholelithiasis. No findings to suggest choledocholithiasis or acute cholecystitis. 4. Simple appearing right renal cyst which is incompletely characterized in the absence of contrast. 5. Subcentimeter right mid pole hyperdense renal cyst. Cystic neoplasm cannot be excluded. If further characterization is warranted, consider renal ultrasound. 6. Aortic atherosclerosis. Dictated by: Cynthia Magallanes M.D. on 07/01/2016 at 18:14 Cardiac Echo Impressions Interpretation Summary The patient was in atrial fibrillation with controlled ventricular rate during the exam. The left ventricle is normal in size. Left ventricular wall thickness is mildly increased. The ejection fraction is estimated to be 50-55%. There is a mild dyssynchronous contraction pattern, consistent with a conduction abnormality. There is apical severe hypokinesis. This is unchanged compared to the previous study. The right ventricle is normal in size and function. The right ventricular systolic pressure is estimated at 58 mmHg assuming a right atrial pressure of 15 mm Hg. The IVC is dilated (diameter is greater than 2.1 cm) and it collapses less than 50% with a sniff. This suggests a high right atrial pressure of 15 mmHg. Both atria are severely dilated. A secundum type atrial septal defect is present. The atrial septal defect is small. There is moderate to severe mitral regurgitation. There is an eccentric jet of mitral regurgitation that is directed posterior- laterial. This is unchanged compared to the previous study. Multiple liver cysts are noted. No other echocardiographic abnormalities seen. Reading Physician:02:49 PM Additional Diagnostics X-RAY BARIUM SWALLOW ESOPHAGUS IMPRESSION: Esophageal dysmotility and small reducible hiatal hernia. Dictated by: Kevin Capellan [facility] Interpreted: Jessica Mendoza MD on 07/04/2016 at 10: 14 Transcribed by: CATHY on 07/04/2016 at 10:15 Approved by: Jessica Mendoza M.D. on 07/04/2016 at 16:49 EGD Impression: Narrowing at the level of upper esophageal sphincter. Benign appearing. Most likely the cause of dysphagia. Markus Dunlap MD Jul 06, 2016 15:13 <Electronically signed by Markus Dunlap MD> 07/06/16 1513 Colonoscopy Impression Rectal lesion that was bleeding. Hemorrhoids Diverticulum Inflamed mucosa Markus Dunlap MD Jul 06, 2016 15:17 <Electronically signed by Markus Dunlap MD> 07/06/16 1517 Assessment & Plan Patient is an 86-year-old female with a history of CAD status post CABG and stent, afib on warfarin, gout, neuropathy. She presented to [facility] due to dysphagia and poor oral intake of 3 weeks. Admitted for evaluation and management of RICKY. Hospital day #7 1. lower GI bleed, acute, present on admission, stable - Concern for likely thrombosed and active bleeding internal hemorrhoids - Has received 1 unit PRBC's during this admission. - Hemoglobin has remained stable since transfusion on 07/02 - continue holding outpatient warfarin and aspirin - Continue to monitor CBC. - GI to perform a colonoscopy which showed a bleeding rectal lesion - Patient to be seen by general surgeon as an outpatient once stable for discharge 2. acute blood loss anemia secondary to lower GI bleed, acute, present on admission. - patient likely also has anemia of chronic disease given elevated ferritin and low TIBC - Treatment for lower GI bleed described above 3. Dysphagia, subacute, present on admission, under evaluation - Barium swallow ordered showed mild esophageal dysmotility and a small hiatal hernia. - GI consulted for possible upper endoscopy and given acute blood loss anemia consideration for lower GI scope - Antiemetic available PRN nausea. - vitamin K given today to treat elevated INR with correction to 1.2 prior to scope - GI to perform EGD showed esophageal stricture at the level of the upper esophageal sphincter - GI recommendations for ENT to perform bilateral dilatory procedure with patient to improve nutritional status prior to procedure - Spoke with Dr. Anaya of ENT who will see patient if she remains hospitalized for several more days or Dr. Broderick as an outpatient - Nutritional consult for increased calories given dysphagia with stricture - Modified barium swallow ordered 4. Acute kidney failure, present on admission, treated improving - no previous records of chronic kidney disease - Most likely due to poor intake secondary to dysphagia. - Continue IV fluids at 100 ml/hr. - nephrology consulted has seen the patient and we appreciate her input. - consideration for restarting outpatient ACEI if hypertensive - Continue to monitor BMP. 5. Diarrhea, reportedly present on admission, present stable - Likely due to poor oral intake with only liquids and recent colonoscopy requiring [facility] [employer] PCR for possible infectious etiology presumed unlikely 6. Hypokalemia, not present on admission, treated stable - likely due to over hydration with bicarb causing mild alkalosis -nephrology following, converted fluids to 1/2 NS with potassium - Potassium chloride 20 mEq 3 times a day in liquid form for dysphagia. 7. CAD s/p CABG and stents - Holding her home medications including ASA, atorvastatin, and beta sonny. Will restart when possible 8. Atrial fibrillation on chronic anticoagulation, presume stable. - Holding anticoagulation due to concerns of lower GI bleed. - Holding digoxin secondary to toxicity. - Continue telemetry. 9. Hypothyroidism, chronic, presume stable. - Holding home Synthroid - Thyroid testing show correct dosing of levothyroxine 10. Digoxin toxicity, acute, present on admission, resolved - Likely secondary to her renal failure and fluid depleted status. - Dig level 2.1at admission. Holding digoxin at this time. - Will continue to follow lab value. - Continue telemetry 11. Elevated troponin, acute, present on admission, stable - Likely due to hypovolemia induced tachycardia from RICKY, with possible CKD. - Continue telemetry. - Patient asymptomatic and will not continue to follow the lab value. Low threshold to repeat if patient has chest pain. - Antacid available PRN. - Tylenol available PRN mild pain, fever. - Melatonin available PRN insomnia. Disposition: awaiting further evaluation and determination of need for more invasive intervention such as general surgery of ENT procedures after GI scopes. Anticipate a few more days of admission. VTE Prophylaxis: SCDs VTE Mechanical Devices: Intermittant Pneumatic CD Resuscitation Status: DNR/DNI:Do Not Resuscitate/Intubate Attending Statement The patient was seen and examined together with Dr. Llamas on 07-07-16 and I agree with the history, exam and plan as outlined in the note above. Olaf Llamas DO Jul 07, 2016 07:51 Giovanna Dash MD Jul 08, 2016 13:13
[2016-07-07] MEDS: TENORMIN 25 MG PO SCH (22:06)
[2016-07-08] VITALS (9 sets, daily range): BP systolic 145–160; BP diastolic 71–87; PULSE 53–92; RESP 16–20; O2SAT 96–98
[2016-07-08] MEDS: Ondansetron 2 mg/mL 2 mL Inj IVPUSH PRN ×2 (00:39→13:34)
--- NOTE | 2016-07-08 04:04 | NUR ---
Tele/Nausea Tele A-Fib 70-80's room air clear lung sounds, 1/2 NS @ 80, A&O x3 using call light appropriately Nausea: 8 Mg Zofran IV x 1, ENT consult cancelled , will do as outpatient.
[2016-07-08 05:34] LABS: BASOPHILS % (AUTO) 0.4 % (0-3); EOSINOPHILS % (AUTO) 3.8 % (0-5); MONOCYTES % (AUTO) 7.9 % (4-12); Mean Corpuscular Hemoglobin 29.1 pg (27.0-35.0); NEUTROPHILS % (AUTO) 61.7 % (40-74); Platelet Count 78 bil/L (150-400)
[2016-07-08 05:59] LABS: Magnesium 1.9 mg/dL (1.6-2.6); Phosphorus 2.2 mg/dL (2.5-4.9)
[2016-07-08] MEDS: TENORMIN 25 MG PO SCH (07:56)
[2016-07-08] MEDS: Potassium Chloride 20 mEq/15 mL 15mL Oral Soln PO SCH ×3 (07:56→17:13)
--- NOTE | 2016-07-08 10:54 | PATH ---
SURGICAL PATHOLOGY Attending Physician:Markus Dunlap M.D. CASE STATUS: Signed Out PATIENT NAME: GURWINDER BONE PID: [id number] : 1930 DATE COLLECTED:07/06/2016 00:00 SPECIMEN: 1: Colon, Biopsy 2: Rectum, Biopsy CLINICAL HISTORY: 1). ASCENDING IRRITATED COLON BIOPSY 2). RECTAL MASS BIOPSY FINAL DIAGNOSIS: 1.ASCENDING IRRITATED COLON BIOPSY: POLYPOID FRAGMENT OF NORMAL-APPEARING COLON MUCOSA. Negative for dysplasia and malignancy. 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 ICD10 code C20 NOTE: As part of a routine quality director, Dr. Jackie Merida has also reviewed this case and agrees with the diagnosis. GROSS DESCRIPTION: The specimen is received in two formalin filled containers labeled with the patient's name. 1). The specimen is sublabeled "ascending irritated colon" and consists of a 0.2 x 0.2 x 0.2 CM portion of tissue which is entirely submitted in cassette 1A. 2). The specimen is sublabeled "rectal mass" and consists of 4 portions of tissue which aggregate to 0.3 x 0.3 x 0.2 CM. The specimen is entirely submitted in cassette 2A. 07/07/2016 [facility] MICRO DESCRIPTION: See diagnosis. ICD-9 CODES: CPT CODES: 1: 77994 2: 96499 Electronically Signed Out Mehrdad Snowden MD [facility] Pathology [facility] [address], [place] [address] Technical component performed at [facility], [address], [place], [address]
--- NOTE | 2016-07-08 11:11 | PCM.PNNEPH ---
Subjective Date of Service Jul 08, 2016 Subjective Patient is continuing to improve with increase in her urine output and decreased creatinine. She denies any chest pain, shortness of breath, cough, wheezing, nausea, vomiting, or diarrhea. Her intake and output for the last 24- hour shows 1472 in and 1675 with 1450 out already this morning. Her hemoglobin is 8.4, sodium was 134, potassium 4.3, chloride 104, bicarbonate 17, BUN and creatinine were 16 and 2.9 respectively. Exam Vital Signs Vital Sign - Last Date Time Temp Pulse Resp B/P Pulse Ox O2 Delivery O2 Flow Rate FiO2 07/08/16 08:24 36.6 18 160/87 96 Room Air 07/08/16 07:51 66 07/06/16 15:10 2 Intake and Output 07/07/16 07/07/16 07/08/16 Cumulative From/Thru 15:00 23:00 07:00 07/01/16 14:23 - 07/08/16 06:28 Intake Total 500 ml 1814 ml 01397 ml Output Total 1075 ml 1450 ml 16900 ml Balance -575 ml 364 ml 7154 ml Intake Oral 500 ml 842 ml 5652 ml IV Total 972 ml 86819 ml Packed Cells 344 ml Output Urine Total 3800 ml Stool Total 1450 ml 4100 ml Urine/Stool Mix 1075 ml 3875 ml # Voids 12 # Bowel Movements 4 15 Exam Neck is supple without adenopathy thyromegaly or jugular venous distention. Lungs are clear to auscultation. Heart is regular and rhythmical with a soft systolic murmur. Abdomen is soft without any tenderness rebound guarding masses or hepatosplenomegaly. Extremities do not show any evidence of any clubbing cyanosis or edema. Turgor is improved. Lab and Diagnostics Result Diagram: 07/08/1651907/08/16519 X-Rays, CTs and MRIs PROCEDURE: CT KUB IMPRESSION: 1. No hydronephrosis, nephrolithiasis, hydroureter, or ureterolithiasis. 2. No acute intra-abdominal findings. Normal appendix. 3. Cholelithiasis. No findings to suggest choledocholithiasis or acute cholecystitis. 4. Simple appearing right renal cyst which is incompletely characterized in the absence of contrast. 5. Subcentimeter right mid pole hyperdense renal cyst. Cystic neoplasm cannot be excluded. If further characterization is warranted, consider renal ultrasound. 6. Aortic atherosclerosis. Dictated by: Cynthia Magallanes M.D. on 07/01/2016 at 18:14 Cardiac Echo Impressions Interpretation Summary The patient was in atrial fibrillation with controlled ventricular rate during the exam. The left ventricle is normal in size. Left ventricular wall thickness is mildly increased. The ejection fraction is estimated to be 50-55%. There is a mild dyssynchronous contraction pattern, consistent with a conduction abnormality. There is apical severe hypokinesis. This is unchanged compared to the previous study. The right ventricle is normal in size and function. The right ventricular systolic pressure is estimated at 58 mmHg assuming a right atrial pressure of 15 mm Hg. The IVC is dilated (diameter is greater than 2.1 cm) and it collapses less than 50% with a sniff. This suggests a high right atrial pressure of 15 mmHg. Both atria are severely dilated. A secundum type atrial septal defect is present. The atrial septal defect is small. There is moderate to severe mitral regurgitation. There is an eccentric jet of mitral regurgitation that is directed posterior- laterial. This is unchanged compared to the previous study. Multiple liver cysts are noted. No other echocardiographic abnormalities seen. Reading Physician:02:49 PM Additional Diagnostics X-RAY BARIUM SWALLOW ESOPHAGUS IMPRESSION: Esophageal dysmotility and small reducible hiatal hernia. Dictated by: Kevin Capellan RRA Interpreted: Jessica Mendoza MD on 07/04/2016 at 10: 14 Transcribed by: CATHY on 07/04/2016 at 10:15 Approved by: Jessica Mendoza M.D. on 07/04/2016 at 16:49 EGD Impression: Narrowing at the level of upper esophageal sphincter. Benign appearing. Most likely the cause of dysphagia. Markus Dunlap MD Jul 06, 2016 15:13 <Electronically signed by Markus Dunlap MD> 07/06/16 1513 Colonoscopy Impression Rectal lesion that was bleeding. Hemorrhoids Diverticulum Inflamed mucosa Markus Dunlap MD Jul 06, 2016 15:17 <Electronically signed by Markus Dunlap MD> 07/06/16 1517 Plan Impression Impression #1 acute on chronic kidney injury which appears to be resolving #2 CK D stage III #4 anemia secondary to chronic kidney disease #4 hypertension with hypertensive heart disease and hypertensive nephrosclerosis. Recommendations #1 as she is eating well we can stop her IV fluid. She appears to be back at her baseline and I will sign off at this point. However would like to see her back in my office in approximately one month. Obviously should any problems or questions arise between now on discharge please do not hesitate to contact us. Plan The patient will continue hyperbaric treatments. Will return () for treatment #() Manoj Langford DO Jul 08, 2016 11:11
--- NOTE | 2016-07-08 14:48 | DRSVH ---
PROCEDURE: X-RAY BARIUM SWALLOW WITH FOOD & VIDEOGRAPHY ([id number]) INDICATIONS: upper esophageal stricture TECHNIQUE: Examination was conducted in conjunction with speech pathology per standard protocol. In the lateral projection, filming was performed of the patient swallowing. AP projection filming may also be performed with patient swallowing. COMPARISON: None. FINDINGS: Function: The oral preparatory phase appears normal, with proper containment. The subsequent oral pr opulsive phase, pharyngeal phase, and esophageal phase of swallowing also appear normal with all prof fered substances. No laryngotracheal penetration or aspiration. No pathologic vallecular pooling. T he attending physician was personally present in the room during the examination. Morphology: No cricopharyngeal bar is identified. No cervical esophageal webs. No Zenker's diverti culum. No strictures. IMPRESSION: No laryngeal penetration or tracheobronchial aspiration. Dictated by: Kevin Capellan [facility] Interpreted: Nataliya Cartagena MD on 07/08/2016 at 14:47 Transcribed by: NANETTE on 07/08/2016 at 14:48 Approved by: Nataliya Cartagena MD, PhD on 07/08/2016 at 17:00
--- NOTE | 2016-07-08 14:50 | NUR ---
NUTRITION FOLLOW UP: ASSESS: 86 YO F admitted with acute renal failure related to dysphagia and poor oral intake for past 3 weeks. Pt on full liquid diet per ST. PO intake has improved since yesterday. RICKY improved, nephrology signing off. Pt tolerating supplements well. She continues having frequent bowel movements, possible related to MSG. PMHx: CAD status post CABG and stent, A-fib on warfarin, gout, neuropathy, hypothyroid. DIET: Full Liquid, PO 10-50% CALORIE COUNT: Dinner 07/07- Calories: 500 kcal; Protein: 30 g Breakfast 07/08- Calories: 515 kcal; Protein: 45 g Lunch 07/08- Calories: 450 kcal; Protein: 30 g Total: 1465 kcal, 105 grams protein LABS: Cr 2.38, Ca 8.3, Albumin 2.9 MEDICATIONS: Zofran GI: 4 BM 07/07 SKIN: No issues reported. ANTHROPOMETRICS: Current Wt: 55.8 kg, BMI: 22.1 kg/m2. IBW: 51.1 kg Recent wt changes: 20 lbs wt loss x1 month (14% = significant) ESTIMATED NEEDS: Calories: 1196-2977 kcal/day (25-35 kcal/kg BW) Protein: 55-85 g/day (1.0-1.5 g/kg BW) Fluid: Approx. 1365 mL (25 mL/kg BW) NUTRITION DIAGNOSIS: 1) Inadequate oral intake related to chewing / swallowing difficulties, as evidenced by inability to tolerate oral intake past 3 weeks, barium swallow ordered and is pending.--IMPROVED INTERVENTION: 1) Will discontinue soups on pt's tray since they contain MSG 2) Will continue supplements as ordered MONITOR/EVALUATE: Diet advance, NPO status, labs, GI/nutrition status. Follow per high nutrition risk guidelines.
--- NOTE | 2016-07-08 15:02 | NUR ---
Social Work: Readiness for Discharge D: Pt discussed in am rounds. Pt is not medically stable for discharge at this time. LEAD ESTHETICIAN attempted to meet with pt at bedside to discuss discharge planning; pt currently off the floor for procedure. Pt has a PT evaluation pending which has not yet been completed. Pt has been ambulating I during admission and is not expected to require SNF. Pt may possibly benefit from HH. A: Pt who is I at baseline and lives with her grandson. P: Anticipate pt to discharge home via POV; LEAD ESTHETICIAN to r/o possible HH for the pt post-PT assessment. MARCOS Buck
--- NOTE | 2016-07-08 18:35 | PCM.PNMED ---
Subjective Date of Service Jul 08, 2016 Subjective GASTROENTEROLOGY PROGRESS NOTE Patient states that she is doing well. Continues to endorse some difficulty swallowing, where items are 'getting stuck like a cat's hairball' in her throat. Denies any fever, chills, nausea, vomiting. Does report increased BM with addition of Ensure 3x daily. No blood reported in stool. Exam Vital Signs Vital Sign - Last Date Time Temp Pulse Resp B/P Pulse Ox O2 Delivery O2 Flow Rate FiO2 07/08/16 18:03 36.7 71 18 151/74 96 Room Air 07/06/16 15:10 2 Intake and Output 07/07/16 07/07/16 07/08/16 Cumulative From/Thru 15:00 23:00 07:00 07/01/16 14:23 - 07/08/16 06:28 Intake Total 500 ml 1814 ml 44507 ml Output Total 1075 ml 1450 ml 08376 ml Balance -575 ml 364 ml 7154 ml Intake Oral 500 ml 842 ml 5652 ml IV Total 972 ml 80784 ml Packed Cells 344 ml Output Urine Total 3800 ml Stool Total 1450 ml 4100 ml Urine/Stool Mix 1075 ml 3875 ml # Voids 12 # Bowel Movements 4 15 Exam General: Alert, Oriented X3, Cooperative, No Acute Distress Eyes: EOMI, Scleral Anicteric Nose: Mucous Membr Moist/[place] Mouth: Mucous Membr Moist/[place] Chest & Lungs: Auscultation (Clear bilaterally with adequate air flow all villarreal), No adventitious breath sounds Cardiovascular: Regular Rate/Rhythm, Normal S1, Normal S2, No Murmurs/Rubs/ Gallops Pulses: Radial (Equal and bilateral) Abdomen: Non-tender, Non-distended, Normoactive bowel tones, Soft Musculoskeletal: Normal Range of Motion Extremities: Warm, no edema Neurological: Cranial Nerves 2-12 Intact, Normal Speech (without slur) Lab and Diagnostics Result Diagram: 07/08/1651907/08/16519 X-Rays, CTs and MRIs PROCEDURE: CT KUB IMPRESSION: 1. No hydronephrosis, nephrolithiasis, hydroureter, or ureterolithiasis. 2. No acute intra-abdominal findings. Normal appendix. 3. Cholelithiasis. No findings to suggest choledocholithiasis or acute cholecystitis. 4. Simple appearing right renal cyst which is incompletely characterized in the absence of contrast. 5. Subcentimeter right mid pole hyperdense renal cyst. Cystic neoplasm cannot be excluded. If further characterization is warranted, consider renal ultrasound. 6. Aortic atherosclerosis. Dictated by: Cynthia Magallanes M.D. on 07/01/2016 at 18:14 Cardiac Echo Impressions Interpretation Summary The patient was in atrial fibrillation with controlled ventricular rate during the exam. The left ventricle is normal in size. Left ventricular wall thickness is mildly increased. The ejection fraction is estimated to be 50-55%. There is a mild dyssynchronous contraction pattern, consistent with a conduction abnormality. There is apical severe hypokinesis. This is unchanged compared to the previous study. The right ventricle is normal in size and function. The right ventricular systolic pressure is estimated at 58 mmHg assuming a right atrial pressure of 15 mm Hg. The IVC is dilated (diameter is greater than 2.1 cm) and it collapses less than 50% with a sniff. This suggests a high right atrial pressure of 15 mmHg. Both atria are severely dilated. A secundum type atrial septal defect is present. The atrial septal defect is small. There is moderate to severe mitral regurgitation. There is an eccentric jet of mitral regurgitation that is directed posterior- laterial. This is unchanged compared to the previous study. Multiple liver cysts are noted. No other echocardiographic abnormalities seen. Reading Physician:02:49 PM Additional Diagnostics X-RAY BARIUM SWALLOW ESOPHAGUS IMPRESSION: Esophageal dysmotility and small reducible hiatal hernia. Dictated by: Kevin Capellan [facility] Interpreted: Jessica Mendoza MD on 07/04/2016 at 10: 14 Transcribed by: CATHY on 07/04/2016 at 10:15 Approved by: Jessica Mendoza M.D. on 07/04/2016 at 16:49 EGD Impression: Narrowing at the level of upper esophageal sphincter. Benign appearing. Most likely the cause of dysphagia. Markus Dunlap MD Jul 06, 2016 15:13 <Electronically signed by Markus Dunlap MD> 07/06/16 1513 Colonoscopy Impression Rectal lesion that was bleeding. Hemorrhoids Diverticulum Inflamed mucosa Markus Dunlap MD Jul 06, 2016 15:17 <Electronically signed by Markus Dunlap MD> 07/06/16 1517 Assessment & Plan GASTROENTEROLOGY CONSULTATION NOTE Ms. 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 GI was consulted to assist in evaluation. CT KUB 07/01: No hydronephrosis, nephrolithiasis, hydroureter, or ureterolithiasis. No acute intra-abdominal findings. Normal appendix. Cholelithiasis. No findings to suggest choledocholithiasis or acute cholecystitis. Simple appearing right renal cyst which is incompletely characterized in the absence of contrast. Subcentimeter right mid pole hyperdense renal cyst. Cystic neoplasm cannot be excluded. If further characterization is warranted, consider renal ultrasound. Aortic atherosclerosis. XR Barium swallow 07/04: Mild esophageal dysmotility, no elicited gastroesophageal reflux, small reducible hiatal hernia. EGD 07/06: Narrowing at the level of upper esophageal sphincter with scarring. Benign appearing. Most likely the cause of dysphagia. Could not advance scope to evaluate any further due to resistance being felt. 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 - Dr. Owen contacted by GI team; will need to re-evaluate surgical options with biopsy results - Patient has expressed that she may not wish to proceed with excision if too invasive, but would like to hear what the surgery would entail - Recommend continued improved nutrition with items that she can safely tolerate - Ensure/similar 3 cans 3x/daily recommended Thank you for this consult, we will following her case at this time. Please do not hesitate to contact us with any questions or concerns. I have seen and examined this patient with the resident. Agree with above. Total time: 60 minutes VTE Prophylaxis: SCDs VTE Mechanical Devices: Intermittant Pneumatic CD Resuscitation Status: DNR/DNI:Do Not Resuscitate/Intubate Edna Colin DO Jul 08, 2016 18:35 Markus Dunlap MD Jul 09, 2016 10:19
--- NOTE | 2016-07-08 18:42 | NUR ---
Swallowing Pt. has had no issues swallowing with a full liq. diet. Pt. went out for a barium swallow eval and per ST consult Pt. is able to swallow more than what she thinks she can. Pt. was then put on dysphagia mech. diet. Pt. at this time states she has a little difficulty swallowing her food that was brought up from dinner and is reminded to chew slowly and take her time to swallow. Pt. states she understands and will chew slowly and take her time. Per Pt. is put back on full liq. diet in the event she cannot continue to swallow her dysphagia mech. food. Pt. at this time only had a few bites, about 2% of food, before using her call light to tell me she cannot continue to eat the dysphagia mech. food because she felt like it was getting stuck in her throat. Pt. states with sips of water and hot tea that the food in her throat is slowly going down. Pt. is not chocking at this time.
--- NOTE | 2016-07-08 19:56 | PCM.PNMED ---
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 The patient is aware of the plan to be seen by general surgery as an outpatient. She is aware that it will require further imaging to give a better estimate of what surgery will be required in the future. No questions at this time. Patient is aware of the plan for a modified EGD if radiology's review of today's modified barium swallow is not more accordance with GI finding on EGD previously. Exam Vital Signs Vital Sign - Last Date Time Temp Pulse Resp B/P Pulse Ox O2 Delivery O2 Flow Rate FiO2 07/08/16 07:51 36.5 66 18 145/76 96 Room Air 07/06/16 15:10 2 Intake and Output 07/07/16 07/07/16 07/08/16 Cumulative From/Thru 15:00 23:00 07:00 07/01/16 14:23 - 07/08/16 06:28 Intake Total 500 ml 1814 ml 21042 ml Output Total 1075 ml 1450 ml 30169 ml Balance -575 ml 364 ml 7154 ml Intake Oral 500 ml 842 ml 5652 ml IV Total 972 ml 48174 ml Packed Cells 344 ml Output Urine Total 3800 ml Stool Total 1450 ml 4100 ml Urine/Stool Mix 1075 ml 3875 ml # Voids 12 # Bowel Movements 4 15 Exam General: patient is an elderly female laying comfortably in hospital bed, no acute distress Eyes: PERRLA, EOMI, sclera anicteric HENT: Head is normocephalic atraumatic, dry tongue and buccal mucosa, no oral thrush appreciated; neck: supple, trachea midline, no JVD Heart: Irregularly irregular rate and rhythm mild he noted without murmurs gallops or rubs Lungs: clear to auscultation bilaterally, no wheezing rales and rhonchi Abdomen: soft, nontender, nondistended, with normoactive bowel tones, well healed old horizontal surgical scar noted in the right abdominal area consistent with prior bowel surgery Extremities: Moderate non-pitting edema present in both lower extremities Pulses: present bilaterally at dorsalis pedis posterior tibialis and radial. Skin: warm and dry there are no rashes. Psych: alert and oriented to person, place and time Neuro: cranial nerves are grossly intact, able to move all extremities grossly, normal speech : no cuevas in place Lab and Diagnostics Result Diagram: 07/08/16 0507/08/16 05 X-Rays, CTs and MRIs PROCEDURE: CT KUB IMPRESSION: 1. No hydronephrosis, nephrolithiasis, hydroureter, or ureterolithiasis. 2. No acute intra-abdominal findings. Normal appendix. 3. Cholelithiasis. No findings to suggest choledocholithiasis or acute cholecystitis. 4. Simple appearing right renal cyst which is incompletely characterized in the absence of contrast. 5. Subcentimeter right mid pole hyperdense renal cyst. Cystic neoplasm cannot be excluded. If further characterization is warranted, consider renal ultrasound. 6. Aortic atherosclerosis. Dictated by: Cynthia Magallanes M.D. on 07/01/2016 at 18:14 Cardiac Echo Impressions Interpretation Summary The patient was in atrial fibrillation with controlled ventricular rate during the exam. The left ventricle is normal in size. Left ventricular wall thickness is mildly increased. The ejection fraction is estimated to be 50-55%. There is a mild dyssynchronous contraction pattern, consistent with a conduction abnormality. There is apical severe hypokinesis. This is unchanged compared to the previous study. The right ventricle is normal in size and function. The right ventricular systolic pressure is estimated at 58 mmHg assuming a right atrial pressure of 15 mm Hg. The IVC is dilated (diameter is greater than 2.1 cm) and it collapses less than 50% with a sniff. This suggests a high right atrial pressure of 15 mmHg. Both atria are severely dilated. A secundum type atrial septal defect is present. The atrial septal defect is small. There is moderate to severe mitral regurgitation. There is an eccentric jet of mitral regurgitation that is directed posterior- laterial. This is unchanged compared to the previous study. Multiple liver cysts are noted. No other echocardiographic abnormalities seen. Reading Physician:02:49 PM Additional Diagnostics X-RAY BARIUM SWALLOW ESOPHAGUS IMPRESSION: Esophageal dysmotility and small reducible hiatal hernia. Dictated by: Kevin Capellan RRA Interpreted: Jessica Mendoza MD on 07/04/2016 at 10: 14 Transcribed by: CATHY on 07/04/2016 at 10:15 Approved by: Jessica Mendoza M.D. on 07/04/2016 at 16:49 EGD Impression: Narrowing at the level of upper esophageal sphincter. Benign appearing. Most likely the cause of dysphagia. Markus Dunlap MD Jul 06, 2016 15:13 <Electronically signed by Markus Dunlap MD> 07/06/16 1513 Colonoscopy Impression Rectal lesion that was bleeding. Hemorrhoids Diverticulum Inflamed mucosa Markus Dunlap MD Jul 06, 2016 15:17 <Electronically signed by Markus Dunlap MD> 07/06/16 1517 Modified barium swallow results are included today is radiologist will review tomorrow Assessment & Plan Patient is an 86-year-old female with a history of CAD status post CABG and stent, afib on warfarin, gout, neuropathy. She presented to [facility] due to dysphagia and poor oral intake of 3 weeks. Admitted for evaluation and management of RICKY. Hospital day #7 1. lower GI bleed, acute, present on admission, stable - Concern for likely thrombosed and active bleeding internal hemorrhoids - Has received 1 unit PRBC's during this admission. - Hemoglobin has remained stable since transfusion on 07/02 - continue holding outpatient warfarin and aspirin - Continue to monitor CBC. - GI to perform a colonoscopy which showed a bleeding rectal lesion - Patient to be seen by general surgeon as an outpatient once stable for discharge 2. acute blood loss anemia secondary to lower GI bleed, acute, present on admission. - patient likely also has anemia of chronic disease given elevated ferritin and low TIBC - Treatment for lower GI bleed described above 3. Dysphagia, subacute, present on admission, under evaluation - Barium swallow ordered showed mild esophageal dysmotility and a small hiatal hernia. - GI consulted for possible upper endoscopy and given acute blood loss anemia consideration for lower GI scope - Antiemetic available PRN nausea. - vitamin K given today to treat elevated INR with correction to 1.2 prior to scope - GI to perform EGD showed esophageal stricture at the level of the upper esophageal sphincter - GI recommendations for ENT to perform bilateral dilatory procedure with patient to improve nutritional status prior to procedure - Spoke with Dr. Anaya of ENT who will see patient if she remains hospitalized for several more days or Dr. Broderick as an outpatient - Nutritional consult for increased calories given dysphagia with stricture - Modified barium swallow ordered showed discordance with GI EGD results, radiologist will read and review results, GI may scope patient pending rereading , patient will be nothing by mouth after midnight if there is a need of repeat study 4. Acute kidney failure, present on admission, treated improving - no previous records of chronic kidney disease - Most likely due to poor intake secondary to dysphagia. - Continue IV fluids at 100 ml/hr. - nephrology consulted has seen the patient and we appreciate her input. - consideration for restarting outpatient ACEI if hypertensive - Continue to monitor BMP. 5. Diarrhea, reportedly present on admission, present stable - Likely due to poor oral intake with only liquids and recent colonoscopy requiring GoLYTELY - Bio fire PCR for possible infectious etiology presumed unlikely 6. Hypokalemia, not present on admission, treated stable - likely due to over hydration with bicarb causing mild alkalosis -nephrology following, converted fluids to 1/2 NS with potassium - Potassium chloride 20 mEq 3 times a day in liquid form for dysphagia. 7. CAD s/p CABG and stents - Holding her home medications including ASA, atorvastatin, and beta sonny. Will restart when possible 8. Atrial fibrillation on chronic anticoagulation, presume stable. - Holding anticoagulation due to concerns of lower GI bleed. - Holding digoxin secondary to toxicity. - Continue telemetry. 9. Hypothyroidism, chronic, presume stable. - Holding home Synthroid - Thyroid testing show correct dosing of levothyroxine 10. Digoxin toxicity, acute, present on admission, resolved - Likely secondary to her renal failure and fluid depleted status. - Dig level 2.1at admission. Holding digoxin at this time. - Will continue to follow lab value. - Continue telemetry 11. Elevated troponin, acute, present on admission, stable - Likely due to hypovolemia induced tachycardia from RICKY, with possible CKD. - Continue telemetry. - Patient asymptomatic and will not continue to follow the lab value. Low threshold to repeat if patient has chest pain. - Antacid available PRN. - Tylenol available PRN mild pain, fever. - Melatonin available PRN insomnia. Disposition: awaiting further evaluation and determination of need for more invasive intervention such as general surgery of ENT procedures after GI scopes. Anticipate a few more days of admission. Pain Evaluation: Adequate Pain Control VTE Prophylaxis: SCDs VTE Mechanical Devices: Intermittant Pneumatic CD Resuscitation Status: DNR/DNI:Do Not Resuscitate/Intubate Attending Statement The patient was seen and examined together with Dr. Llamas on 07-08-16 and I agree with the history, exam and plan as outlined in the note above. Olaf Llamas DO Jul 08, 2016 08:09 Giovanna Dash MD Jul 09, 2016 13:48
[2016-07-09] VITALS (8 sets, daily range): BP systolic 136–156; BP diastolic 62–81; PULSE 65–89; RESP 15–18; O2SAT 96–99
[2016-07-09 04:37] LABS: BASOPHILS % (AUTO) 0.3 % (0-3); EOSINOPHILS % (AUTO) 3.3 % (0-5); MONOCYTES % (AUTO) 6.4 % (4-12); Mean Corpuscular Hemoglobin 28.5 pg (27.0-35.0); Mean Corpuscular Volume 91.2 fL (81-100); NEUTROPHILS % (AUTO) 65.5 % (40-74); Platelet Count 84 bil/L (150-400)
[2016-07-09 04:48] LABS: INR 1.05 ratio
[2016-07-09 04:52] LABS: Magnesium 1.8 mg/dL (1.6-2.6); Phosphorus 2.1 mg/dL (2.5-4.9)
--- NOTE | 2016-07-09 05:10 | NUR ---
NPO/BP Pt was made NPO at midnight and has no complaints of nausea at this point. Pt's BP has remained elevated but SBP has consistently remained <160. Pt's platelet count is still under 100 and pt, who takes coumadin at home for A-Fib has not been administered coumadin for many days per the pt. Pt's current platelet count is 84 and INR is 1.05.
--- NOTE | 2016-07-09 07:45 | ST BAR ---
[address] [address] SPEECH BARIUM SWALLOW STUDY PATIENT: GURWINDER BONE : 1930 MR#: [id number] ADMIT: 07/01/2016 JOB ID: [id number] DATE OF SERVICE: 07/08/2016 REFERRING PHYSICIAN: Olaf Llamas DO (Resident) PRIMARY CARE PHYSICIAN: Sridhar Mckeon MD HICN #: #[id number] A. G CODES AND MODIFIERS: 8996 CK, 8997 CK, 8998 CK. THERAPIST: Sera De La Cruz M.A., CCC-[employer] RECOMMENDATIONS: 1. Dysphagia mechanical textures and thin liquids on a select diet. 2. Medications crushed in applesauce or pudding. No further speech therapy is warranted at this time. CURRENT RELEVANT HISTORY: This is a very pleasant 86-year-old female, who was seen for an initial inpatient modified barium swallow study due to complaints of dysphagia on all items other than thin liquids. The patient reported globus sensation, coughing and choking with all other textures besides thin liquids. The current study is being completed today to assess the swallowing mechanism and identify safe least restrictive diet level. MEDICAL NECESSITY: Aspiration risk. PRIOR LEVEL OF FUNCTION: Unknown. RECENT HOSPITALIZATIONS: Yes. The patient is currently admitted to [facility] for lower GI bleed. Barium swallow was completed and identified mild esophageal dysmotility and small hiatal hernia. BASELINE TEST MEASURES: The patient sat for the modified barium swallow study and was viewed laterally. P.o. trials of thin liquid barium, pureed barium, dysphagia mechanical barium and a barium tablet were given. Oral motor examination was within functional limits. Oral phase: Bolus was contained appropriately in the oral cavity and moved to the pharynx in a timely manner. Pharyngeal phase: Premature spillage no. Laryngeal elevation was within functional limits. Limited anterior hyoid movement was observed. Epiglottic inversion was within functional limits. Vallecular residue and pooling was observed on solid food trials. Mild piriform sinus and vallecular residue remained after thin liquid trials. There was mild residue at the UES which may explain the patient's globus sensation. Esophageal phase could not be fully viewed due to patient positioning. Of note, previous barium swallow indicated mild dysmotility and a small hiatal hernia. EVALUATION RESULTS: The patient presented today with mild moderate oropharyngeal dysphagia characterized by poor AP transit of a barium tablet and some residue in the vallecula and piriform sinus post swallow. Symptoms of globus sensation and some throat clearing occurred at the conclusion of the study. However, no aspiration or penetration was viewed on any trial or after any trial. It is recommended that the patient advance her diet to dysphagia mechanical textures and thin liquids rather than a full liquid thin diet. The patient was able to eat and swallow these texture safely and I reviewed the findings of the study and some of the imaging with the patient to assure her that food items were not blocking her airway. The RN was notified of the findings and the recommendations. Pills should continue to be crushed due to poor AP transit of a pill. Thank you very much for this interesting consult. HIGINIO
[2016-07-09] MEDS ORDERED: Iron Sucrose Inj 100 MG in 0.9% Sodium Chloride 100 ML IV ONE (08:20)
[2016-07-09] MEDS ORDERED: Darbepoetin Alfa 60 mCg/0.3 mL Inj SUBQ ONE (08:20)
[2016-07-09] MEDS: TENORMIN 25 MG PO SCH (08:48)
--- NOTE | 2016-07-09 09:50 | NUR ---
Evaluation completed. Please go to "Notes" then click on "Assessments and Notes" (bottom left corner of screen). Then select appropriate discipline tab on top of screen.
--- NOTE | 2016-07-09 10:29 | PCM.PNNEPH ---
Subjective Date of Service Jul 09, 2016 Subjective The patient continues to improve from a renal standpoint however her major issue seems to be her severe dysphagia. Her blood pressures averaging 140 range and she has had Urine output. She denies any chest pain, shortness of breath, cough, wheezing, nausea, vomiting, or diarrhea. Exam Vital Signs Vital Sign - Last Date Time Temp Pulse Resp B/P Pulse Ox O2 Delivery O2 Flow Rate FiO2 07/09/16 10:16 87 07/09/16 08:38 36.6 18 145/62 96 Room Air 07/06/16 15:10 2 Intake and Output 07/08/16 07/08/16 07/09/16 Cumulative From/Thru 15:00 23:00 07:00 07/01/16 14:23 - 07/09/16 05:23 Intake Total 1473 ml 100 ml 05584 ml Output Total 350 ml 16562 ml Balance 1123 ml 100 ml 8377 ml Intake Oral 1000 ml 100 ml 6752 ml IV Total 473 ml 15764 ml Packed Cells 344 ml Output Urine Total 350 ml 4150 ml Stool Total 4100 ml Urine/Stool Mix 3875 ml # Voids 3 15 # Bowel Movements 4 3 22 Exam Neck supple without adenopathy, thyromegaly, or drug assistance. Lungs are clear to auscultation. Heart was regular and rhythmic with a soft systolic murmur. Abdomen is soft without any tenderness rebound guarding masses or hepatosplenomegaly. Extremities do not show any evidence of any clubbing, cyanosis, or edema. Skin turgor is good and there is no evidence of any rashes. Lab and Diagnostics Result Diagram: 07/09/16 0428 07/09/16 0428 X-Rays, CTs and MRIs PROCEDURE: CT KUB IMPRESSION: 1. No hydronephrosis, nephrolithiasis, hydroureter, or ureterolithiasis. 2. No acute intra-abdominal findings. Normal appendix. 3. Cholelithiasis. No findings to suggest choledocholithiasis or acute cholecystitis. 4. Simple appearing right renal cyst which is incompletely characterized in the absence of contrast. 5. Subcentimeter right mid pole hyperdense renal cyst. Cystic neoplasm cannot be excluded. If further characterization is warranted, consider renal ultrasound. 6. Aortic atherosclerosis. Dictated by: Cynthia Magallanes M.D. on 07/01/2016 at 18:14 Cardiac Echo Impressions Interpretation Summary The patient was in atrial fibrillation with controlled ventricular rate during the exam. The left ventricle is normal in size. Left ventricular wall thickness is mildly increased. The ejection fraction is estimated to be 50-55%. There is a mild dyssynchronous contraction pattern, consistent with a conduction abnormality. There is apical severe hypokinesis. This is unchanged compared to the previous study. The right ventricle is normal in size and function. The right ventricular systolic pressure is estimated at 58 mmHg assuming a right atrial pressure of 15 mm Hg. The IVC is dilated (diameter is greater than 2.1 cm) and it collapses less than 50% with a sniff. This suggests a high right atrial pressure of 15 mmHg. Both atria are severely dilated. A secundum type atrial septal defect is present. The atrial septal defect is small. There is moderate to severe mitral regurgitation. There is an eccentric jet of mitral regurgitation that is directed posterior- laterial. This is unchanged compared to the previous study. Multiple liver cysts are noted. No other echocardiographic abnormalities seen. Reading Physician:02:49 PM Additional Diagnostics X-RAY BARIUM SWALLOW ESOPHAGUS IMPRESSION: Esophageal dysmotility and small reducible hiatal hernia. Dictated by: Kevin Capellan RR Interpreted: Jessica Mendoza MD on 07/04/2016 at 10: 14 Transcribed by: CATHY on 07/04/2016 at 10:15 Approved by: Jessica Mendoza M.D. on 07/04/2016 at 16:49 EGD Impression: Narrowing at the level of upper esophageal sphincter. Benign appearing. Most likely the cause of dysphagia. Markus Dunlap MD Jul 06, 2016 15:13 <Electronically signed by Markus Dunlap MD> 07/06/16 1513 Colonoscopy Impression Rectal lesion that was bleeding. Hemorrhoids Diverticulum Inflamed mucosa Markus Dunlap MD Jul 06, 2016 15:17 <Electronically signed by Markus Dunlap MD> 07/06/16 1517 Modified barium swallow results are included today is radiologist will review tomorrow Plan Impression Impression #1 resolving acute kidney injury #2 chronic kidney disease stage III #3 hypertension with hypertensive heart disease and hypertensive nephrosclerosis #4 anemia secondary to chronic kidney disease. #5 type IV renal tubular acidosis. Recommendations #1 I would like to start her on chlorthalidone initially for blood pressure control. If she would require a second agent I would like to start her on a low dose LISINOPRIL. In addition I will start her on some sodium bicarbonate supplementation for her acidosis which may assist in her potassium level. Manoj Langford DO Jul 09, 2016 10:29
[2016-07-09] MEDS ORDERED: Sodium-Potassium Phosphorus Packet PO ONE (10:30)
--- NOTE | 2016-07-09 11:49 | NUR ---
Social Work: [facility] gave patient a choice for SNF and patient chose [facility]. SW gave [facility] access to patient's chart and faxed face sheet. Naila Mcpherson, CORTEZ, ACM
--- NOTE | 2016-07-09 12:20 | PCM.PNMED ---
Subjective Date of Service Jul 09, 2016 Subjective Patient is doing well. Denies any pain of the abdomen. However last time when she was trying to eat a sandwich, she said she had 4 bites and had difficulty swallowing it. Exam Vital Signs Vital Sign - Last Date Time Temp Pulse Resp B/P Pulse Ox O2 Delivery O2 Flow Rate FiO2 07/09/16 10:16 87 07/09/16 08:38 36.6 18 145/62 96 Room Air 07/06/16 15:10 2 Intake and Output 07/08/16 07/08/16 07/09/16 Cumulative From/Thru 15:00 23:00 07:00 07/01/16 14:23 - 07/09/16 05:23 Intake Total 1473 ml 100 ml 40848 ml Output Total 350 ml 16127 ml Balance 1123 ml 100 ml 8377 ml Intake Oral 1000 ml 100 ml 6752 ml IV Total 473 ml 70398 ml Packed Cells 344 ml Output Urine Total 350 ml 4150 ml Stool Total 4100 ml Urine/Stool Mix 3875 ml # Voids 3 15 # Bowel Movements 4 3 22 Exam Patient is alert oriented comfortable Lungs clear Cardia vascular regular rate and rhythm, normal S1-S2 Abdomen soft nontender nondistended with normal active bowel sounds Extremities no pitting edema ankles Skin shows no jaundice. Lab and Diagnostics Result Diagram: 07/09/1642707/09/16427 X-Rays, CTs and MRIs PROCEDURE: CT KUB IMPRESSION: 1. No hydronephrosis, nephrolithiasis, hydroureter, or ureterolithiasis. 2. No acute intra-abdominal findings. Normal appendix. 3. Cholelithiasis. No findings to suggest choledocholithiasis or acute cholecystitis. 4. Simple appearing right renal cyst which is incompletely characterized in the absence of contrast. 5. Subcentimeter right mid pole hyperdense renal cyst. Cystic neoplasm cannot be excluded. If further characterization is warranted, consider renal ultrasound. 6. Aortic atherosclerosis. Dictated by: Cynthia Magallanes M.D. on 07/01/2016 at 18:14 Cardiac Echo Impressions Interpretation Summary The patient was in atrial fibrillation with controlled ventricular rate during the exam. The left ventricle is normal in size. Left ventricular wall thickness is mildly increased. The ejection fraction is estimated to be 50-55%. There is a mild dyssynchronous contraction pattern, consistent with a conduction abnormality. There is apical severe hypokinesis. This is unchanged compared to the previous study. The right ventricle is normal in size and function. The right ventricular systolic pressure is estimated at 58 mmHg assuming a right atrial pressure of 15 mm Hg. The IVC is dilated (diameter is greater than 2.1 cm) and it collapses less than 50% with a sniff. This suggests a high right atrial pressure of 15 mmHg. Both atria are severely dilated. A secundum type atrial septal defect is present. The atrial septal defect is small. There is moderate to severe mitral regurgitation. There is an eccentric jet of mitral regurgitation that is directed posterior- laterial. This is unchanged compared to the previous study. Multiple liver cysts are noted. No other echocardiographic abnormalities seen. Reading Physician:02:49 PM Additional Diagnostics X-RAY BARIUM SWALLOW ESOPHAGUS IMPRESSION: Esophageal dysmotility and small reducible hiatal hernia. Dictated by: Kevin Capellan RRA Interpreted: Jessica Mendoza MD on 07/04/2016 at 10: 14 Transcribed by: CATHY on 07/04/2016 at 10:15 Approved by: Jessica Mendoza M.D. on 07/04/2016 at 16:49 EGD Impression: Narrowing at the level of upper esophageal sphincter. Benign appearing. Most likely the cause of dysphagia. Markus Dunlap MD Jul 06, 2016 15:13 <Electronically signed by Markus Dunlap MD> 07/06/16 1513 Colonoscopy Impression Rectal lesion that was bleeding. Hemorrhoids Diverticulum Inflamed mucosa Markus Dunlap MD Jul 06, 2016 15:17 <Electronically signed by Markus Dunlap MD> 07/06/16 1517 Modified barium swallow results are included today is radiologist will review tomorrow Assessment & Plan GASTROENTEROLOGY CONSULTATION NOTE Ms. 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 GI was consulted to assist in evaluation. CT KUB 07/01: No hydronephrosis, nephrolithiasis, hydroureter, or ureterolithiasis. No acute intra-abdominal findings. Normal appendix. Cholelithiasis. No findings to suggest choledocholithiasis or acute cholecystitis. Simple appearing right renal cyst which is incompletely characterized in the absence of contrast. Subcentimeter right mid pole hyperdense renal cyst. Cystic neoplasm cannot be excluded. If further characterization is warranted, consider renal ultrasound. Aortic atherosclerosis. XR Barium swallow 07/04: Mild esophageal dysmotility, no elicited gastroesophageal reflux, small reducible hiatal hernia. EGD 07/06: Narrowing at the level of upper esophageal sphincter with scarring. Benign appearing. Most likely the cause of dysphagia. Could not advance scope to evaluate any further due to resistance being felt. 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 Modified barium swallows was read as normal. However I looked at the modified barium swallow myself and requested a second grade by the radiologist. The modified bleeding of the appearance swallow shows that there is moderate stenosis which is consistent with patient's dysphagia and an EGD showing narrowing in resistance but I felt while trying to intubate the esophagus. - BRBPR, likely secondary to rectal lesion seen on endoscopy. She has no rectal bleeding at this point. - Supratherapeutic INR - Chronic diarrhea secondary to ileal resection; she had no diarrhea today. Plan - ENT evaluation then I could follow up to see the patient in the GI clinic after the ENT evaluation. Radiology recommended that we do pharymgealgram which can be done as an outpatient. - Recommend surgical follow up for abnormal colonoscopy findings of rectal lesion. - Dr. Owen contacted by GI team; will need to re-evaluate surgical options with biopsy results - Patient has expressed that she may not wish to proceed with excision if too invasive, but would like to hear what the surgery would entail - Recommend continued improved nutrition with items that she can safely tolerate - Ensure/similar 3 cans 3x/daily recommended - No evidence of aspiration based on modified barium swallow. Thank you for this consult, we will following her case at this time. Please do not hesitate to contact us with any questions or concerns. I have seen and examined this patient with the resident. Agree with above. Total time:45 minutes. This includes the time reviewing the modified barium swallow myself contacting the radiologist for an opinion and coordinating care. VTE Prophylaxis: SCDs VTE Mechanical Devices: Intermittant Pneumatic CD Resuscitation Status: DNR/DNI:Do Not Resuscitate/Intubate Markus Dunlap MD Jul 09, 2016 12:20
--- NOTE | 2016-07-09 13:42 | NUR ---
[facility] signed
--- NOTE | 2016-07-09 15:44 | NUR ---
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 Modified barium swallows yesterday read as normal. However gastroenterology requested a second grade by the radiologist. The modified bleeding of the appearance swallow shows that there is moderate stenosis which is consistent with patient's dysphagia and an EGD showing narrowing in resistance. Pt remains on full liquid diet per ST order. PO intake continues to improve. RICKY improved, nephrology signing off. Pt tolerating supplements well. Diarrhea has resolved, per gastroenterology. PMHx: CAD status post CABG and stent, A-fib on warfarin, gout, neuropathy, hypothyroid. DIET: Full Liquid, PO intake 50% - 75% today. CALORIE COUNT INCOMPLETE DOCUMENTATION: Dinner 07/08 - NO DOCUMENTATION. Snack 07/08 - 100% Ensure, 350 calories, 13 g protein. Breakfast 07/09- NPO. Lunch 07/08- 200 calories, 26 g protein. LABS: Chloride 109, CO2 15, Cr 1.96, Phos 2.1, Alb 3.0. MEDICATIONS: Zofran GI: 3 BM today. No diarrhea. SKIN: No issues reported. ANTHROPOMETRICS: Current Wt: 53.0 kg, BMI: 21.0 kg/m2. IBW: 51.1 kg Recent wt changes: 20 lbs wt loss x1 month (14% = significant) ESTIMATED NEEDS: Calories: 6391-0378 kcal/day (25-35 kcal/kg BW) Protein: 55-85 g/day (1.0-1.5 g/kg BW) Fluid: Approx. 1365 mL (25 mL/kg BW) NUTRITION DIAGNOSIS: 1) Inadequate oral intake related to chewing / swallowing difficulties, as evidenced by inability to tolerate oral intake past 3 weeks prior to admit, s/p modified barium swallow with gastroenterology asking for second opinion - PERSISTS. INTERVENTION: 1) Will discontinue soups on pt's tray since they contain MSG, to which patient is sensitive. 2) Will continue supplements as ordered. MONITOR/EVALUATE: Diet advance, NPO status, labs, GI/nutrition status. Follow per high nutrition risk guidelines.
--- NOTE | 2016-07-09 18:35 | PCM.PNMED ---
Subjective Date of Service Jul 09, 2016 Subjective overnight: Patient made nothing by mouth overnight for possible modified barium swallow pending results of radiology review of previous modified swallow study. Today: Patient states that her diarrhea has improved mildly today. Discussed today with patient's daughter her likely colorectal adenocarcinoma and the required follow-up. Exam Vital Signs Vital Sign - Last Date Time Temp Pulse Resp B/P Pulse Ox O2 Delivery O2 Flow Rate FiO2 07/09/16 05:33 73 07/09/16 03:40 36.8 18 144/70 96 Room Air 07/06/16 15:10 2 Intake and Output 07/08/16 07/08/16 07/09/16 Cumulative From/Thru 15:00 23:00 07:00 07/01/16 14:23 - 07/09/16 05:23 Intake Total 1473 ml 100 ml 67028 ml Output Total 350 ml 38565 ml Balance 1123 ml 100 ml 8377 ml Intake Oral 1000 ml 100 ml 6752 ml IV Total 473 ml 82139 ml Packed Cells 344 ml Output Urine Total 350 ml 4150 ml Stool Total 4100 ml Urine/Stool Mix 3875 ml # Voids 3 15 # Bowel Movements 4 3 22 Exam General: patient is an elderly female laying comfortably in hospital bed, no acute distress Eyes: PERRLA, EOMI, sclera anicteric HENT: Head is normocephalic atraumatic, dry tongue and buccal mucosa, no oral thrush appreciated; neck: supple, trachea midline, no JVD Heart: Irregularly irregular rate and rhythm mild heave noted without murmurs gallops or rubs Lungs: clear to auscultation bilaterally, no wheezing rales and rhonchi Abdomen: soft, nontender, nondistended, with normoactive bowel tones, well healed old horizontal surgical scar noted in the right abdominal area consistent with prior bowel surgery Extremities: Moderate non-pitting edema present in both lower extremities Pulses: present bilaterally at dorsalis pedis posterior tibialis and radial. Skin: warm and dry there are no rashes. Psych: alert and oriented to person, place and time Neuro: cranial nerves are grossly intact, able to move all extremities grossly, normal speech : no cuevas in place Lab and Diagnostics Result Diagram: 07/09/1642707/09/16427 X-Rays, CTs and MRIs PROCEDURE: CT KUB IMPRESSION: 1. No hydronephrosis, nephrolithiasis, hydroureter, or ureterolithiasis. 2. No acute intra-abdominal findings. Normal appendix. 3. Cholelithiasis. No findings to suggest choledocholithiasis or acute cholecystitis. 4. Simple appearing right renal cyst which is incompletely characterized in the absence of contrast. 5. Subcentimeter right mid pole hyperdense renal cyst. Cystic neoplasm cannot be excluded. If further characterization is warranted, consider renal ultrasound. 6. Aortic atherosclerosis. Dictated by: Cynthia Magallanes M.D. on 07/01/2016 at 18:14 Cardiac Echo Impressions Interpretation Summary The patient was in atrial fibrillation with controlled ventricular rate during the exam. The left ventricle is normal in size. Left ventricular wall thickness is mildly increased. The ejection fraction is estimated to be 50-55%. There is a mild dyssynchronous contraction pattern, consistent with a conduction abnormality. There is apical severe hypokinesis. This is unchanged compared to the previous study. The right ventricle is normal in size and function. The right ventricular systolic pressure is estimated at 58 mmHg assuming a right atrial pressure of 15 mm Hg. The IVC is dilated (diameter is greater than 2.1 cm) and it collapses less than 50% with a sniff. This suggests a high right atrial pressure of 15 mmHg. Both atria are severely dilated. A secundum type atrial septal defect is present. The atrial septal defect is small. There is moderate to severe mitral regurgitation. There is an eccentric jet of mitral regurgitation that is directed posterior- laterial. This is unchanged compared to the previous study. Multiple liver cysts are noted. No other echocardiographic abnormalities seen. Reading Physician:02:49 PM Additional Diagnostics X-RAY BARIUM SWALLOW ESOPHAGUS IMPRESSION: Esophageal dysmotility and small reducible hiatal hernia. Dictated by: Kevin Capellan [facility] Interpreted: Jessica Mendoza MD on 07/04/2016 at 10: 14 Transcribed by: CATHY on 07/04/2016 at 10:15 Approved by: Jessica Mendoza M.D. on 07/04/2016 at 16:49 EGD Impression: Narrowing at the level of upper esophageal sphincter. Benign appearing. Most likely the cause of dysphagia. Markus Dunlap MD Jul 06, 2016 15:13 <Electronically signed by Markus Dunlap MD> 07/06/16 1513 Colonoscopy Impression Rectal lesion that was bleeding. Hemorrhoids Diverticulum Inflamed mucosa Markus Dunlap MD Jul 06, 2016 15:17 <Electronically signed by Markus Dunlap MD> 07/06/16 1517 PROCEDURE: X-RAY BARIUM SWALLOW WITH FOOD & VIDEOGRAPHY ([id number]) COMPARISON: [facility], CR, XR BARIUM SWALLOW ESOPHAGUS, 2016, 9:43. Anterior endplate osteophytes related to the C4-C5 and C5-C6 disc abuts and contours the posterior margin of the upper cervical esophagus causing moderate esophageal narrowing. Dictated by: Nataliya Cartagena MD, PhD on 07/09/2016 at 9:28 Approved by: Nataliya Cartagena MD, PhD on 07/09/2016 at 9:29 SURGICAL PATHOLOGY FINAL DIAGNOSIS: 1.ASCENDING IRRITATED COLON BIOPSY: POLYPOID FRAGMENT OF NORMAL-APPEARING COLON MUCOSA. Negative for dysplasia and malignancy. 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 Assessment & Plan Patient is an 86-year-old female with a history of CAD status post CABG and stent, afib on warfarin, gout, neuropathy. She presented to [facility] due to dysphagia and poor oral intake of 3 weeks. Admitted for evaluation and management of RICKY. Hospital day #8 1. lower GI bleed, acute, present on admission, stable - Concern for likely thrombosed and active bleeding internal hemorrhoids - Has received 1 unit PRBC's during this admission. - Hemoglobin has remained stable since transfusion on 07/02 - continue holding outpatient warfarin and aspirin - Continue to monitor CBC. - GI to perform a colonoscopy which showed a bleeding rectal lesion - Pathology report indicates highly suspicious for invasive adenocarcinoma - Patient will require follow-up with Dr. Perdomo [place] general surgery for evaluation of colorectal adenocarcinoma next week 2. acute blood loss anemia secondary to lower GI bleed, acute, present on admission. - patient likely also has anemia of chronic disease given elevated ferritin and low TIBC - Treatment for lower GI bleed described above 3. Dysphagia, subacute, present on admission, under evaluation - Barium swallow ordered showed mild esophageal dysmotility and a small hiatal hernia. - GI consulted for possible upper endoscopy and given acute blood loss anemia consideration for lower GI scope - Antiemetic available PRN nausea. - vitamin K given today to treat elevated INR with correction to 1.2 prior to scope - GI to perform EGD showed esophageal stricture at the level of the upper esophageal sphincter - GI recommendations for ENT to perform bilateral dilatory procedure with patient to improve nutritional status prior to procedure - Spoke with Dr. Anaya of ENT who will see patient if she remains hospitalized for several more days or Dr. Broderick as an outpatient - Nutritional consult for increased calories given dysphagia with stricture - Modified barium swallow ordered showed moderate esophageal narrowing upper cervical esophagus - All medications that are capable most be crushed for ease of swallowing - Patient will require further imaging with pharyngogram to be scheduled as an outpatient early next week prior to being seen by ENT - Patient will require follow-up with Dr. Tom Anaya ENT within the next week for evaluation of her dysphagia (also okay to be seen by Dr. Broderick ENT or Dr. Woo ENT depending on scheduling) - Patient will require follow-up with Dr. Dunlap gastroenterology in 2 weeks after being seen by ENT for evaluation 4. Acute kidney failure, present on admission, treated improving - no previous records of chronic kidney disease - Most likely due to poor intake secondary to dysphagia. - Continue IV fluids at 100 ml/hr. - nephrology consulted has seen the patient and we appreciate her input. - Okay to restart ramipril per nephrology - Continue to monitor BMP. 5. Diarrhea, reportedly present on admission, present stable - Likely due to poor oral intake with only liquids and recent colonoscopy requiring GoLYTELY - Bio fire PCR for possible infectious etiology presumed unlikely 6. Hypokalemia, not present on admission, treated stable - likely due to over hydration with bicarb causing mild alkalosis -nephrology following, converted fluids to 1/2 NS with potassium - Potassium chloride 20 mEq 3 times a day in liquid form for dysphagia. 7. CAD s/p CABG and stents - Holding her home medications including ASA, atorvastatin, and beta sonny. Will restart when possible 8. Atrial fibrillation on chronic anticoagulation, presume stable. - Holding anticoagulation and aspirin due to concerns of lower GI bleed. - Holding digoxin secondary to toxicity. Consideration for discontinuing this medication instead of restarting at this point. - Continue telemetry. - Rate control with outpatient Tenormin as scheduled 9. Hypothyroidism, chronic, presume stable. - Holding home Synthroid - Thyroid testing show correct dosing of levothyroxine 10. Digoxin toxicity, acute, present on admission, resolved - Likely secondary to her renal failure and fluid depleted status. - Dig level 2.1at admission. Holding digoxin at this time. - Will continue to follow lab value. - Continue telemetry 11. Elevated troponin, acute, present on admission, stable - Likely due to hypovolemia induced tachycardia from RICKY, with possible CKD. - Continue telemetry. - Patient asymptomatic and will not continue to follow the lab value. Low threshold to repeat if patient has chest pain. 12. Hypertension, chronic, present on admission, stable - Patient takes furosemide for leg swelling as an outpatient - Nephrology started chlorthalidone, with consideration to continue as an outpatient and discontinue furosemide - Restart ramipril at discharge - Continue outpatient Tenormin as scheduled - Antacid available PRN. - Tylenol available PRN mild pain, fever. - Melatonin available PRN insomnia. Disposition: Patient likely may be discharged within the next day to a longterm facility. VTE Prophylaxis: SCDs VTE Mechanical Devices: Intermittant Pneumatic CD Resuscitation Status: DNR/DNI:Do Not Resuscitate/Intubate Attending Statement The patient was seen and examined together with Dr. Llamas on 07-09-16 and I agree with the history, exam and plan as outlined in the note above. Olaf Llamas DO Jul 09, 2016 07:36 Giovanna Dash MD Jul 10, 2016 10:59
[2016-07-10 03:31] VITALS: BP 150/68; PULSE 69; RESP 16; O2SAT 96
[2016-07-10 04:20] LABS: BASOPHILS % (AUTO) 0.4 % (0-3); EOSINOPHILS % (AUTO) 3.2 % (0-5); MONOCYTES % (AUTO) 6.3 % (4-12); Mean Corpuscular Hemoglobin 28.6 pg (27.0-35.0); Mean Corpuscular Volume 90.9 fL (81-100); NEUTROPHILS % (AUTO) 65.8 % (40-74); Platelet Count 89 bil/L (150-400)
--- NOTE | 2016-07-10 04:47 | NUR ---
PO Intake/Diarrhea/Rest Pt tolerates PO medications crushed and put into warm water. Pt has not had much PO intake throughout the shift. The only intake the pt has had during shift was the water with crushed medication and a sip of water afterwards to wash the medication down. Pt continues to have diarrhea and is incontinent of a small portion of stool each time the pt gets up to use the bathroom. Pt has been able to rest through most of the shift and had diarrhea only when up to the bathroom which was at the beginning of the shift and when the pt was up for a standing weight.
[2016-07-10 05:01] VITALS: PULSE 73
[2016-07-10 08:03] VITALS: BP 117/63; PULSE 82; RESP 17; O2SAT 96
[2016-07-10] MEDS: TENORMIN 25 MG PO SCH (08:27)
--- NOTE | 2016-07-10 09:50 | PCM.PNMED ---
Subjective Date of Service Jul 10, 2016 Subjective Patient has no complaints. She is eating her breakfast and drinking her insurer. Exam Vital Signs Vital Sign - Last Date Time Temp Pulse Resp B/P Pulse Ox O2 Delivery O2 Flow Rate FiO2 07/10/16 08:03 37.0 82 17 117/63 96 Room Air 07/06/16 15:10 2 Intake and Output 07/09/16 07/09/16 07/10/16 Cumulative From/Thru 15:00 23:00 07:00 07/01/16 14:23 - 07/10/16 05:07 Intake Total 630 ml 360 ml 69634 ml Output Total 350 ml 900 ml 97616 ml Balance 280 ml -540 ml 8117 ml Intake Oral 630 ml 360 ml 7742 ml IV Total 47122 ml Packed Cells 344 ml Output Urine Total 350 ml 750 ml 5250 ml Stool Total 4100 ml Urine/Stool Mix 150 ml 4025 ml # Voids 3 18 # Bowel Movements 5 5 32 Exam The patient is alert oriented comfortable Lungs clear Cardia vascular regular rate and rhythm normal S1-S2 Abdomen soft nontender nondistended with normoactive bowel sounds Skin shows no jaundice Lab and Diagnostics Result Diagram: 07/10/16 0405 07/10/16 0405 X-Rays, CTs and MRIs PROCEDURE: CT KUB IMPRESSION: 1. No hydronephrosis, nephrolithiasis, hydroureter, or ureterolithiasis. 2. No acute intra-abdominal findings. Normal appendix. 3. Cholelithiasis. No findings to suggest choledocholithiasis or acute cholecystitis. 4. Simple appearing right renal cyst which is incompletely characterized in the absence of contrast. 5. Subcentimeter right mid pole hyperdense renal cyst. Cystic neoplasm cannot be excluded. If further characterization is warranted, consider renal ultrasound. 6. Aortic atherosclerosis. Dictated by: Cynthia Magallanes M.D. on 07/01/2016 at 18:14 Cardiac Echo Impressions Interpretation Summary The patient was in atrial fibrillation with controlled ventricular rate during the exam. The left ventricle is normal in size. Left ventricular wall thickness is mildly increased. The ejection fraction is estimated to be 50-55%. There is a mild dyssynchronous contraction pattern, consistent with a conduction abnormality. There is apical severe hypokinesis. This is unchanged compared to the previous study. The right ventricle is normal in size and function. The right ventricular systolic pressure is estimated at 58 mmHg assuming a right atrial pressure of 15 mm Hg. The IVC is dilated (diameter is greater than 2.1 cm) and it collapses less than 50% with a sniff. This suggests a high right atrial pressure of 15 mmHg. Both atria are severely dilated. A secundum type atrial septal defect is present. The atrial septal defect is small. There is moderate to severe mitral regurgitation. There is an eccentric jet of mitral regurgitation that is directed posterior- laterial. This is unchanged compared to the previous study. Multiple liver cysts are noted. No other echocardiographic abnormalities seen. Reading Physician:02:49 PM Additional Diagnostics X-RAY BARIUM SWALLOW ESOPHAGUS IMPRESSION: Esophageal dysmotility and small reducible hiatal hernia. Dictated by: Kevin Capellan [facility] Interpreted: Jessica Mendoza MD on 07/04/2016 at 10: 14 Transcribed by: CATHY on 07/04/2016 at 10:15 Approved by: Jessica Mendoza M.D. on 07/04/2016 at 16:49 EGD Impression: Narrowing at the level of upper esophageal sphincter. Benign appearing. Most likely the cause of dysphagia. Markus Dunlap MD Jul 06, 2016 15:13 <Electronically signed by Markus Dunlap MD> 07/06/16 1513 Colonoscopy Impression Rectal lesion that was bleeding. Hemorrhoids Diverticulum Inflamed mucosa Makrus Dunlap MD Jul 06, 2016 15:17 <Electronically signed by Markus Dunlap MD> 07/06/16 1517 PROCEDURE: X-RAY BARIUM SWALLOW WITH FOOD & VIDEOGRAPHY ([id number]) COMPARISON: [facility], CR, XR BARIUM SWALLOW ESOPHAGUS, 2016, 9:43. Anterior endplate osteophytes related to the C4-C5 and C5-C6 disc abuts and contours the posterior margin of the upper cervical esophagus causing moderate esophageal narrowing. Dictated by: Nataliya Cartagena MD, PhD on 07/09/2016 at 9:28 Approved by: Nataliya Cartagena MD, PhD on 07/09/2016 at 9:29 SURGICAL PATHOLOGY FINAL DIAGNOSIS: 1.ASCENDING IRRITATED COLON BIOPSY: POLYPOID FRAGMENT OF NORMAL-APPEARING COLON MUCOSA. Negative for dysplasia and malignancy. 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 Assessment & Plan Patient is an 86-year-old female with a history of CAD status post CABG and stent, afib on warfarin, gout, neuropathy. She presented to [facility] due to dysphagia and poor oral intake of 3 weeks. Admitted for evaluation and management of RICKY. She is not having any rectal bleeding at this point. Again she needs to go see the surgeon as an outpatient and determine what to do. In terms of the dysphagia, mild stricture for EGD and video swallow. She needs to go to ENT. Then she needs to follow see me in GI clinic. In the meantime I would have her on a pure diet. Yesterday the diarrhea stopped. If she tolerates her diet, I will see her as an outpatient after ENT evaluation. VTE Prophylaxis: SCDs VTE Mechanical Devices: Intermittant Pneumatic CD Resuscitation Status: DNR/DNI:Do Not Resuscitate/Intubate Markus Dunlap MD Jul 10, 2016 09:50
[2016-07-10 09:59] VITALS: PULSE 70
[2016-07-10] MEDS ORDERED: HYDR-4003 PO (11:49)
--- NOTE | 2016-07-10 11:57 | PCM.DIMED ---
Jackie Estevez DO 07/10/16 1157: Discharge Instructions Date of Service Jul 10, 2016 Dates of Hospitalization Jul 01, 2016 at 17:45 Discharge Diagnosis Discharge Diagnosis 1. Lower GI bleed, acute, present on admission, stable 2. Acute blood loss anemia secondary to lower GI bleed, acute, present on admission. 3. Dysphagia, subacute, present on admission, under evaluation 4. Acute kidney failure, present on admission, treated improving 5. Diarrhea, reportedly present on admission, present stable 6. Hypokalemia, not present on admission, treated stable 7. CAD s/p CABG and stents 8. Atrial fibrillation on chronic anticoagulation, presume stable. 9. Hypothyroidism, chronic, presume stable. 10. Digoxin toxicity, acute, present on admission, resolved 11. Elevated troponin, acute, present on admission, stable 12. Hypertension, chronic, present on admission, stable Medication Instructions Stop taking coumadin/warfarin at this time. While you are waiting for general surgery evaluation, stop the blood thinner. After decisions are made about surgery you can discuss with the doctors if that medication is ok to re-start. Stop the digoxin. Until you are better able to eat and drink, we will not have you take that medication as there is a risk of toxicity. At this time take Lasix (furosemide) 40 mg daily. If you dose needs to be increased in the future, your PCP can do that as you tolerate. Continue taking all your other medications as previously prescribed. The [facility] will receive a printed out list of those medications and directions for how you use them. Diet Other (Pureed (patient likes yogurt), Ensure, NO MSG) Activity Other (Physical therapy at [facility]) Call your provider Fever or Chills, Shortness of breath, Bleeding, Chest pain, Vomitting, Excessive diarrhea, Weakness (unilateral) Patient Instructions Follow up labs in about 1 week to re-check BMP. Follow-up plan You have an appointment with the residency clinic on 07/11/16 at 4:30 PM. They would like it if you showed up no later than 4:15 for your appointment. Please talk to [facility] to help you arrange transport to that appointment. Be sure to discuss all your referrals with the doctor including a referral to Leanne Owen MD (general surgery), Markus Dunlap MD ( gastroenterology), and Otolaryngology (ENT). Follow-up Provider: Hugo Capellan DO Follow-up with PCP in: Other (Monday07/11/16 at 4:30 PM) Provider: Rachel Dacosta MD Follow-up in: Other (Follow up physician in the SNF) Giovanna Dash MD 07/25/16 1617: Discharge Instructions Attending's Statement The patient was seen and examined together with Dr. Estevez on 07-10-16 and I agree with the history, exam and plan as outlined in the note above. Jackie Estevez DO Jul 10, 2016 11:57 Giovanna Dash MD Jul 25, 2016 16:17
[2016-07-10 12:21] VITALS: BP 137/72; PULSE 63; RESP 16; O2SAT 98
--- NOTE | 2016-07-10 16:31 | PCM.DC.MED ---
Discharge Summary Date of Service Jul 10, 2016 Dates of Hospitalization Date of Hospital Admission Jul 01, 2016 at 17:45 Date of Discharge: Jul 10, 2016 Providers: Admitting Physician: Blaine Maciel MD Primary Care Physician: Sridhar Mckeon MD Attending Physician: Blaine Maciel MD Diagnosis at Time of Discharge Diagnosis at Time of Discharge 1. Lower GI bleed, acute, present on admission, stable 2. Acute blood loss anemia secondary to lower GI bleed, acute, present on admission. 3. Dysphagia, subacute, present on admission, under evaluation 4. Acute kidney failure, present on admission, treated improving 5. Diarrhea, reportedly present on admission, present stable 6. Hypokalemia, not present on admission, treated stable 7. CAD s/p CABG and stents 8. Atrial fibrillation on chronic anticoagulation, presume stable. 9. Hypothyroidism, chronic, presume stable. 10. Digoxin toxicity, acute, present on admission, resolved 11. Elevated troponin, acute, present on admission, stable 12. Hypertension, chronic, present on admission, stable Consultations Markus Dunlap MD (gastroenterology) Manoj Langford DO (nephrology) Procedures XRay, CTs & MRIs PROCEDURE: CT KUB IMPRESSION: 1. No hydronephrosis, nephrolithiasis, hydroureter, or ureterolithiasis. 2. No acute intra-abdominal findings. Normal appendix. 3. Cholelithiasis. No findings to suggest choledocholithiasis or acute cholecystitis. 4. Simple appearing right renal cyst which is incompletely characterized in the absence of contrast. 5. Subcentimeter right mid pole hyperdense renal cyst. Cystic neoplasm cannot be excluded. If further characterization is warranted, consider renal ultrasound. 6. Aortic atherosclerosis. Dictated by: Cynthia Magallanes M.D. on 07/01/2016 at 18:14 Cardiac Echo Impression Interpretation Summary The patient was in atrial fibrillation with controlled ventricular rate during the exam. The left ventricle is normal in size. Left ventricular wall thickness is mildly increased. The ejection fraction is estimated to be 50-55%. There is a mild dyssynchronous contraction pattern, consistent with a conduction abnormality. There is apical severe hypokinesis. This is unchanged compared to the previous study. The right ventricle is normal in size and function. The right ventricular systolic pressure is estimated at 58 mmHg assuming a right atrial pressure of 15 mm Hg. The IVC is dilated (diameter is greater than 2.1 cm) and it collapses less than 50% with a sniff. This suggests a high right atrial pressure of 15 mmHg. Both atria are severely dilated. A secundum type atrial septal defect is present. The atrial septal defect is small. There is moderate to severe mitral regurgitation. There is an eccentric jet of mitral regurgitation that is directed posterior- laterial. This is unchanged compared to the previous study. Multiple liver cysts are noted. No other echocardiographic abnormalities seen. Reading Physician:02:49 PM Other Diagnostics X-RAY BARIUM SWALLOW ESOPHAGUS IMPRESSION: Esophageal dysmotility and small reducible hiatal hernia. Dictated by: Kevin Capellan RRA Interpreted: Jessica Mendoza MD on 07/04/2016 at 10: 14 Transcribed by: CATHY on 07/04/2016 at 10:15 Approved by: Jessica Mendoza M.D. on 07/04/2016 at 16:49 EGD Impression: Narrowing at the level of upper esophageal sphincter. Benign appearing. Most likely the cause of dysphagia. Markus Dunlap MD Jul 06, 2016 15:13 <Electronically signed by Markus Dunlap MD> 07/06/16 1513 Colonoscopy Impression Rectal lesion that was bleeding. Hemorrhoids Diverticulum Inflamed mucosa Markus Dunlap MD Jul 06, 2016 15:17 <Electronically signed by Markus Dunlap MD> 07/06/16 1517 PROCEDURE: X-RAY BARIUM SWALLOW WITH FOOD & VIDEOGRAPHY ([id number]) COMPARISON: [facility], CR, XR BARIUM SWALLOW ESOPHAGUS, 2016, 9:43. Anterior endplate osteophytes related to the C4-C5 and C5-C6 disc abuts and contours the posterior margin of the upper cervical esophagus causing moderate esophageal narrowing. Dictated by: Nataliya Cartagena MD, PhD on 07/09/2016 at 9:28 Approved by: Nataliya Cartagena MD, PhD on 07/09/2016 at 9:29 SURGICAL PATHOLOGY FINAL DIAGNOSIS: 1.ASCENDING IRRITATED COLON BIOPSY: POLYPOID FRAGMENT OF NORMAL-APPEARING COLON MUCOSA. Negative for dysplasia and malignancy. 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 Brief History Per H&P by Dr. Maciel on 07/01/16: 86-year-old lady with past medical history of CAD status post CABG and stent, afib on warfarin ,gout, neuropathy came to emergency room due to dysphagia and poor oral intake of 3 weeks. She states she has dysphagia for the last 3 weeks in which food and medications will get stuck in her throat ( she points to mid neck) . Drinking water seems to help. She has been having poor oral intake for the last 3 weeks and no taking any medications for last 2 days. She was seen by her PCP 3 times and was treated for GERD but no improvement.no Imaging done outpatient. She states she sometimes regurgitates food that was stuck in her throat. She was referred to ENT and has an appointment with Dr Broderick on Monday She had an episode of rectal bleeding yesterday. Bleeding was fresh blood. She has on and off fresh rectal bleeding for the Last 1 year. Last colonoscopy was 10 years ago. ED course : Initial vitals unremarkable but high BP afterwards. Exam unremarkable except signs of dehydration. Labs remarkable for acute kidney failure with cr 5.06,BUN 90,bicarbonate 13,k 5.7 ,Na 131,EKG a fib at 64 with LBBB unchanged from prior ekg,trop 0.046, anemia Hb 9.7 1 L NS given,CT KUB negative for hydronephrosis Hospitalist service requested for admission for acute kidney failure Hospital Course Patient to discharge to [facility] on 07/10/16. 1. Lower GI bleed, acute, present on admission, stable - Received 1 unit PRBC's during this admission. Hemoglobin has remained stable since transfusion on 07/02/16. - Continue holding outpatient warfarin and aspirin. - Pathology report indicates highly suspicious for invasive adenocarcinoma - Patient will require follow-up with Dr. Perdomo [place] general surgery for evaluation of colorectal adenocarcinoma next week 2. Acute blood loss anemia secondary to lower GI bleed, acute, present on admission. - Patient likely also has anemia of chronic disease given elevated ferritin and low TIBC - Treatment for lower GI bleed described above 3. Dysphagia, subacute, present on admission, under evaluation - Antiemetic available PRN nausea. - Nutritional consult for increased calories given dysphagia with stricture. - All medications that are capable most be crushed for ease of swallowing - Patient will require further imaging with pharyngogram to be scheduled as an outpatient early next week prior to being seen by ENT - Patient will require follow-up with Dr. Tom Anaya ENT within the next week for evaluation of her dysphagia (also okay to be seen by Dr. Broderick ENT or Dr. Woo ENT depending on scheduling) - Patient will require follow-up with Dr. Dunlap gastroenterology in 2 weeks after being seen by ENT for evaluation 4. Acute kidney failure, present on admission, improving. - Most likely due to poor intake secondary to dysphagia. - Dr. Langford of nephrology saw the patient during admission and reported that she may follow up in the office if there are further concerns about her kidneys. - Follow up labs in about 1 week with BMP to ensure creatinine and BUN continue to decrease. 5. Diarrhea, reportedly present on admission, resolved. - PCR ruled out infectious etiology. Likely secondary to lower endoscopy and use of GoLytely. 6. Hypokalemia, not present on admission, treated stable - likely due to over hydration with bicarb causing mild alkalosis -nephrology following, converted fluids to 1/2 NS with potassium - Potassium chloride 20 mEq 3 times a day in liquid form for dysphagia. 7. CAD s/p CABG and stents - Held her home medications including ASA, atorvastatin, and beta sonny during admission. - Restart atorvastatin and beta sonny. 8. Atrial fibrillation on chronic anticoagulation, presume stable. - Held anticoagulation and aspirin due to concerns of lower GI bleed. - Held digoxin secondary to toxicity. - Rate control with outpatient Tenormin 25 mg daily. 9. Hypothyroidism, chronic, presume stable. - Continue levothyroxine 50 mcg daily. 10. Digoxin toxicity, acute, present on admission, resolved - Likely secondary to her renal failure and fluid depleted status. - Dig level 2.1at admission. Held digoxin during admission - Will not re-start at discharge. Defer to outpatient providers to re-start if needed. 11. Elevated troponin, acute, present on admission, stable - Likely due to hypovolemia induced tachycardia from RICKY, with possible CKD. - Continue telemetry. - Patient asymptomatic and will not continue to follow the lab value. Low threshold to repeat if patient has chest pain. 12. Hypertension, chronic, present on admission, stable - Will discharge patient with furosemide 40 mg daily. If this appears insufficient for diuresis in the future consider a dose increase or change to torsemide. - Restart ramipril 5 mg daily. - Continue Tenormin 25 mg daily. Exam Vital Signs (Last) Date Time Temp Pulse Resp B/P Pulse Ox O2 Delivery O2 Flow Rate FiO2 07/10/16 12:56 Room Air 07/10/16 12:21 36.9 63 16 137/72 98 07/06/16 15:10 2 Exam General: patient is an elderly female laying comfortably in hospital bed, no acute distress Eyes: PERRLA, EOMI, sclera anicteric HENT: Head is normocephalic atraumatic, dry tongue and buccal mucosa, no oral thrush appreciated; neck: supple, trachea midline, no JVD Heart: Irregularly irregular rate and rhythm without murmurs gallops or rubs Lungs: clear to auscultation bilaterally, no wheezing rales and rhonchi Abdomen: soft, nontender, nondistended, with normoactive bowel tones, well healed old horizontal surgical scar noted in the right abdominal area consistent with prior bowel surgery Extremities: Moderate non-pitting edema present in both lower extremities Pulses: present bilaterally at dorsalis pedis posterior tibialis and radial. Skin: warm and dry there are no rashes. Psych: alert and oriented to person, place and time Neuro: cranial nerves are grossly intact, able to move all extremities grossly, normal speech MSK: Patient seen walking in the halls with PT. Able to ambulate well with front wheeled walker. Test 07/01/16 15:13 07/01/16 20:36 07/01/16 21:30 07/03/16 05:20 Hold Blue Top Tube Received (Received) Lactic Acid Level 1.0mmol/L (0.4-2.0) Pro-B-Type Natriuretic Peptide 5392pg/mL (0-738) Hold Red Top Tube Received (Received) Hold Cornell Top Tube Received (Received) Total Creatine Kinase 24U/L (21-215) Thyroid Stimulating Hormone (TSH) 1.440uIU/mL (0.450-4.500) Free Thyroxine 1.62ng/dL (0.82-1.77) Urine Color Straw (YELLOW) Urine Appearance Hazy (CLEAR,HAZY) Urine pH 5.0 (5.0-8.0) Urine Specific [place] 1.015 (1.003-1.035) Urine Protein Negativemg/dL (NEG,TRACE) Urine Glucose (UA) Negativemg/dL (NEGATIVE) Urine Ketones Negativemg/dL (NEGATIVE) Urine Occult Blood Trace (NEGATIVE) Urine Nitrite Negative (NEGATIVE) Urine Bilirubin Negative (NEGATIVE) Urine Urobilinogen Normalmg/dL (NORMAL) Urine Leukocyte Esterase Moderate (NEGATIVE) Urine RBC 3-10/hpf (0-2) Urine WBC 11-50/hpf (0-5) Urine Epithelial Cells Moderate/hpf (NONE-MOD) Urine Crystals None seen (NONE SEEN) Urine Bacteria Moderate/hpf (NONE-FEW) Urine Hyaline Casts None/lpf (NONE) Urine Granular Casts None seen (NONE SEEN) Urine Waxy Casts None seen (NONE SEEN) Urine Red Blood Cell Casts None seen (NONE SEEN) Urine White Blood Cell Casts None seen (NONE SEEN) Urine Mucus None seen (None Seen) Urine Trichomonas None seen (NONE SEEN) Urine Yeast None (NONE SEEN) Urinalysis Comment Urine Culture Reflexed Indicated Troponin T 0.066ug/L (0.0-0.011) Test 07/04/16 05:15 07/04/16 17:56 07/06/16 05:47 07/08/16 05:20 Iron Level 17ug/dL (35-150) Total Iron Binding Capacity 206ug/dL (250-450) Percent Iron Saturation 8%sat (15-50) Unsaturated Iron Binding 188.5ug/dL Ferritin 342ng/mL (13-150) Vitamin B12 Level 805pg/mL (211-946) Vitamin D 25-Hydroxy 5.2ng/mL (30.0-100.0) Folate 7.3ng/mL (>3.0) Parathyroid Hormone (Intact) 376pg/mL (15-65) Digoxin Level 0.8nG/mL (0.9-2.0) Urine Random Creatinine 49mg/dL (15-278) Urine Random Total Protein 17mg/dL (0-15) Activated Partial Thromboplast Time 36.9sec (22.8-33.0) Procalcitonin 0.09ng/mL (0.00-0.08) Test 07/09/16 04:28 07/10/16 04:05 Prothrombin Time 11.3sec (8.1-12.5) Prothromb Time International Ratio 1.05ratio Magnesium Level 1.8mg/dL (1.6-2.6) White Blood Count 5.7th/mm3 (3.8-10.1) Red Blood Count 2.97mil/mm3 (3.90-5.20) Hemoglobin 8.5g/dL (12.0-15.6) Hematocrit 27.0% (35.0-46.0) Mean Corpuscular Volume 90.9fL (81-100) Mean Corpuscular Hemoglobin 28.6pg (27.0-35.0) Mean Corpuscular Hemoglobin Concent 31.5% (32.0-37.0) Red Cell Distribution Width 16.0% (12.3-15.4) Platelet Count 89bil/L (150-400) Neutrophils (%) (Auto) 65.8% (40-74) Lymphocytes (%) (Auto) 24.3% (14-46) Monocytes (%) (Auto) 6.3% (4-12) Eosinophils (%) (Auto) 3.2% (0-5) Basophils (%) (Auto) 0.4% (0-3) Sodium Level 138mEq/L (134-144) Potassium Level 4.7mEq/L (3.5-5.2) Chloride Level 108mEq/L (97-108) Carbon Dioxide Level 15mmol/L (18-29) Blood Urea Nitrogen 21mg/dL (8-27) Creatinine 1.82mg/dL (0.57-1.00) Estimat Glomerular Filtration Rate 38mL/min (>59) Glucose Level 95mg/dL (60-99) Calcium Level 8.7mg/dL (8.5-10.1) Phosphorus Level 3.0mg/dL (2.5-4.9) Total Bilirubin 0.4mg/dL (0.0-1.2) Aspartate Amino Transf (AST/SGOT) 11U/L (0-50) Alanine Aminotransferase (ALT/SGPT) 5U/L (0-32) Alkaline Phosphatase 45U/L (25-165) Total Protein 5.5g/dL (6.4-8.4) Albumin 3.5g/dL (3.4-5.0) Discharge Medications Discharge Medications Acetaminophen (Tylenol Arthritis) 650 Mg Tablet.er 650 MG PO Q4HRS (Reported) Atenolol (Tenormin) 25 Mg Tablet 12.5 MG PO BID (Reported) Atorvastatin (Lipitor) 10 Mg Tab 10 MG PO HS (Reported) Cyanocobalamin (Vitamin B-12) (Vitamin B-12) 1,000 Mcg Tablet 1,000 MCG PO DAILY (Reported) Furosemide (Furosemide) 40 Mg Tablet 40 MG PO DAILY (Reported) Levothyroxine (Levothyroxine) 50 Mcg Tablet 50 MCG PO QAM (Reported) Multivit-Min/Iron Fum/Folic AC (Bavui-Iextbaz-Tkszroua Tablet) 7.5 Mg Iron-400 Mcg Tablet 1 EACH PO DAILY (Reported) Potassium Chloride ER (Potassium Chloride ER) 10 Meq Tablet 20 MEQ PO DAILY ( Reported) TAKE WITH FOOD Ramipril (Ramipril) 5 Mg Capsule 5 MG PO DAILY (Reported) Ranitidine (Ranitidine) 150 Mg Capsule 150 MG PO BIDWM (Reported) As needed Hydrocodone-Acetaminophen 5-325 mg (Hydrocodone-Acetaminophen 5-325 mg) 1 Each Tablet 1 TABLET PO Q8HRS PRN PRN For Pain (Reported) Ondansetron (Ondansetron) 4 Mg Tablet 4-8 MG PO Q4H PRN PRN For Nausea/Vomiting (Reported) Additional med instructions Stop taking coumadin/warfarin at this time. While you are waiting for general surgery evaluation, stop the blood thinner. After decisions are made about surgery you can discuss with the doctors if that medication is ok to re-start. Stop the digoxin. Until you are better able to eat and drink, we will not have you take that medication as there is a risk of toxicity. At this time take Lasix (furosemide) 40 mg daily. If you dose needs to be increased in the future, your PCP can do that as you tolerate. Continue taking all your other medications as previously prescribed. The alf will receive a printed out list of those medications and directions for how you use them. Followup Plan Follow-up plan You have an appointment with the residency clinic on 07/11/16 at 4:30 PM. They would like it if you showed up no later than 4:15 for your appointment. Please talk to Belinda Harrell to help you arrange transport to that appointment. Be sure to discuss all your referrals with the doctor including a referral to Leanne Owen MD (general surgery), Markus Dunlap MD ( gastroenterology), and Otolaryngology (ENT). Discharge Diet: Other (Pureed (patient likes yogurt), Ensure, NO MSG) Discharge Activity: Other (Physical therapy at [facility]) Patient Instructions Follow up labs in about 1 week to re-check BMP. Follow-up Provider: Hugo Capellan DO Follow-up with PCP in: Other (Monday07/11/16 at 4:30 PM) Provider: Rachel Dacosta MD Follow-up in: Other (Follow up physician in the SNF) Attending Statement The patient was seen and examined together with Dr. Estevez on 07-10-16 and I agree with the history, exam and plan as outlined in the note above. copies to: Markus Dunlap MD; Leanne Owen MD; Rachel Dacosta MD; Hugo Capellan Jennifer E DO Jul 10, 2016 13:11 Giovanna Dash MD Jul 25, 2016 16:17
[2016-07-21] MEDS ORDERED: ACET-2766 PO (15:10)
[2016-07-21] MEDS ORDERED: MULT-1086 PO (15:10)
[2016-07-21] MEDS ORDERED: HYDR-4003 PO (15:10)
[2016-07-21] MEDS ORDERED: FURO40TA4 PO (15:10)
== END 2016-07-10 13:50 | DRG 683 ==
LOC: SED 14:06 → MPC 17:45 → PCC 07-02 23:59
PROVIDERS: ADMIT Internal Medicine; ATTEND Internal Medicine
PROC: 30233N1 Transfusion of Nonautologous Red Blood Cells into Peripheral Vein, Percutaneous Approach (ICD-10-PCS; 2016-07-02)
PROC: 0DJ08ZZ Inspection of Upper Intestinal Tract, Via Natural or Artificial Opening Endoscopic (ICD-10-PCS; 2016-07-06)
PROC: 0DBK8ZX Excision of Ascending Colon, Via Natural or Artificial Opening Endoscopic, Diagnostic (ICD-10-PCS; principal; 2016-07-06 15:30)
PROC: 0DBP8ZX Excision of Rectum, Via Natural or Artificial Opening Endoscopic, Diagnostic (ICD-10-PCS; 2016-07-06 15:30)
DX: N17.9 Acute kidney failure, unspecified (principal); R64 Cachexia; Z68.1 Body mass index [BMI] 19.9 or less, adult; E87.2 Acidosis; K62.5 Hemorrhage of anus and rectum; D62 Acute posthemorrhagic anemia; N39.0 Urinary tract infection, site not specified; C20 Malignant neoplasm of rectum; T46.0X5A Adverse effect of cardiac-stimulant glycosides and drugs of similar action, initial encounter; E86.0 Dehydration; Z79.01 Long term (current) use of anticoagulants; R62.7 Adult failure to thrive; E87.5 Hyperkalemia; I25.10 Atherosclerotic heart disease of native coronary artery without angina pectoris; Z95.1 Presence of aortocoronary bypass graft; Z95.5 Presence of coronary angioplasty implant and graft; E03.9 Hypothyroidism, unspecified; I48.2 Chronic atrial fibrillation; N18.3 Chronic kidney disease, stage 3 (moderate); D63.1 Anemia in chronic kidney disease; K22.2 Esophageal obstruction; I13.10 Hypertensive heart and chronic kidney disease without heart failure, with stage 1 through stage 4 chronic kidney disease, or unspecified chronic kidney disease

== ENCOUNTER 2016-09-02 05:50 | Day surgery (SDC) | payer MEDICARE, OTHER ==
--- NOTE | 2016-08-25 16:40 | PCM.ANEPRE ---
Anesthesia Pre-Op Review Reason for Review: office request Anesthesia Recommendations: Proceed with Procedure Additional Comments 86 y/o female with rectal adenocarcinoma. Asked to see patient because of dysphagia. Narrowing found in esophagus, possibly due to osteophyte. No indication of difficult airway. Will eval DOS. Ok to proceed. Chart Reviewed by: Josh Christensen MD August 25, 2016 16:40
[~2016-09-02] VITALS: Ht 157.5 cm; Wt 55.3 kg
[2016-09-02] VITALS (14 sets, daily range): BP systolic 85–131; BP diastolic 41–82; PULSE 66–148; RESP 9–18; O2SAT 94–100
[~2016-09-02 05:50] MED LIST: ATEN-154 PO; ATRV10T PO; CYAN10008 PO; FURO40TA4 PO; HYDR-4003 PO; LEVO50TA6 PO; MULT-1086 PO; ONDA-53 PO; POTA10TA12 PO; RAMI5CAP PO; RANI150C4 PO
[2016-09-02] MEDS ORDERED: Ondansetron 2 mg/mL 2 mL Inj ONE (05:51)
[2016-09-02] MEDS ORDERED: Phenylephrine/NS-PF 100 mCg/mL 5 mL Syringe IVPUSH ONE (05:51)
[2016-09-02] MEDS ORDERED: Propofol 10,000 mCg/mL 20 mL Inj ONE (05:51)
[2016-09-02] MEDS ORDERED: Esmolol 10,000 mCg/mL 10 mL Inj ONE (05:51)
[2016-09-02] MEDS ORDERED: Lidocaine PF 1% 30 mL Inj ONE (05:51)
[2016-09-02] MEDS ORDERED: fentaNYL-PF 50 mCg/mL 2 mL Inj ONE (05:51)
[2016-09-02] MEDS: Lactated Ringer's 1,000 ML IV SCH ×2 (05:53→07:30)
--- NOTE | 2016-09-02 07:24 | PCM.HPANE ---
Patient Data Date of Service: September 02, 2016 Surgeon Admitting Provider: Attending Provider:Leanne Owen MD Primary Care Physician:Bishnu Pagan DO Other Provider:Raina Yeager Anesthesia Reason for Visit Rectal Polyp Ht/WT & BMI Height (Feet): 5 Height (Inches): 2.00 Weight (Kilograms): 55.340 Body Mass Index 22.00 Allergies Coded Allergies: atenolol (Verified Allergy, Severe, shortness of breath and angina, ) able to take tenormin prednisone (Verified Allergy, Severe, hallucinations,dementia, 08/31/16) pregabalin (Verified Allergy, Severe, all side effects listed, 08/31/16) abciximab (Verified Allergy, Intermediate, rash, 08/31/16) Past Anesthesia History Anesthesia History: Denies:: Anesthesia Reactions, Fam Anesthesia Reaction, Fam Malignant Hypertherm, Malignant Hyperthermia Diabetes History Hx Diabetes?: No MRSA MRSA: No Medications Hypertension Medication: Yes (RAMIPRIL) Home Meds Incl Beta Jorgito: Yes Date Beta Jorgito Taken: September 01, 2016 Time Beta Jorgito Taken: 2200 Reported Medications Multivit-Min/Iron Fum/Folic AC (Qrzhi-Ktjfpdh-Snnsmdma Tablet)7.5 Mg Iron-400 Mcg Tablet1 Each PO DAILY 07/21/16 Hydrocodone-Acetaminophen 5-325 mg 1 Each Tablet1 Tablet PO Q8HRS PRN For Pain Ref 0 07/21/16 Furosemide 40 Mg Uhftdi15 Mg PO DAILY 07/21/16 Cyanocobalamin (Vitamin B-12) (Vitamin B-12)1,000 Mcg Skikdd692 Mcg PO DAILY 07/01/16 Atenolol (Tenormin)25 Mg Wigmzr81.5 Mg PO BID 30 Days Ref 0 07/01/16 Ramipril 5 Mg Capsule5 Mg PO DAILY 07/01/16 Potassium Chloride ER 10 Meq Heevlx94 Meq PO DAILY Ref 0 TAKE WITH FOOD 07/01/16 Atorvastatin (Lipitor)10 Mg Tab10 Mg PO HS Ref 0 07/01/16 Levothyroxine 50 Mcg Zkyibw20 Mcg PO QAM Ref 0 07/01/16 Ranitidine 150 Mg Qtqekdp057 Mg PO BIDWM Ref 0 07/01/16 Ondansetron 4 Mg Tablet4 Mg PO Q8H PRN For Nausea/Vomiting 07/01/16 Discontinued Reported Medications Acetaminophen (Tylenol Arthritis)650 Mg Tablet.er650 Mg PO Q4HRS 07/21/16 History History of ENT Problems?: Yes HEENT History: Positive for:: Cataracts (bilateral) Dysphagia (can only swallow liquids-puree- crushing meds with difficulty) Denies:: Glaucoma (macular degeneration) Hearing Problem Denture Type: None Teeth Condition: Within Normal Limits Hx of Heart Problems?: Yes Cardiovascular History: Positive for:: Atrial Fibrillation (current not on thinners- for last 2 months ) Cardiac Surgery (S/P HEART CATH/STENTS, CABG) Chest Pain Coronary Artery Disease Edema (LE edema, chronic) Hypertension (HYPERLIPIDEMIA) Irregular Heartbeat (afib) 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) Denies:: AICD Congestive Heart Failure Heart Murmur (ECHO 06/2016 EF 50-55%) Pacemaker Peripheral Vascular Thrombophlebitis Hx of Respiratory Problem?: Yes Respiratory History: Positive for:: Dyspnea (can not walk flight stairs ) Denies:: Asthma COPD Emphysema Oxygen Administration Pneumonia Tuberculosis Use of C-PAP Machine Use of Inhalers / NEBS Hx Neurologic Problems?: No Neurological History: Denies:: CVA Headaches Multiple Sclerosis Parkinson's Disease Seizures TIA Hx of GI Problems?: Yes Other GI Pertinent History: hx of ileum resected for hld- rectal ca current admission problem Hx of Problems?: Yes Genitourinary History: Denies:: HX of Hemodialysis (CKD STAGE III- Dr Langford) Kidney Stones Urinary Tract Infection Female Hx: Positive for:: Problems with Breasts? (benign bx) Denies:: Currently Endometriosis Pelvic Inflammatory (s/p hysterectomy) Skin History: Denies:: History Skin Disorders? Pressure Ulcers Hx Musculoskeletal Problems?: No Musculoskeletal History: Denies:: Back Injury Degenerative Joint Fibromyalgia Joint Replacement Musculoskeletal Trauma Myasthenia Gravis Osteoarthritis Hx of Psycho/Social Problems?: No Hx Surgeries?: Yes (QUAD BYPASS/STENTS/PARTIAL REMOVAL OF ILEUM,HEART CATH- STENTS,BREAST BX) Hx Any Other Health Problems?: Yes Other History: Positive for:: Cancer (RECTAL CA) Thyroid Disease Denies:: Hospitalization History Blood Transfusions: Positive for:: Accept Blood Products? Blood Transfusions Denies:: Blood Transfuse Reaction Hx Diabetes: No Hx Alcohol Use: No (''rarely"- a glass of wine/month)Hx Substance Use: No Smoking Status: Former Smoker Have You Smoked inLast 12 mo: No Stop/Bang S-Snoring: Do You Snore Loudly: No T-Tired: feel tired, fatigued: Yes O-Obsered: Observed not breath: No P-Blood Pressure: treated: Yes B- Body Mass Index > 35 kg/m2: No A- Age over 50: Yes N- Neck Large Circumference: No G- Gender Male: No ASHWINI Total Score: 3 ASHWINI Risk Assessment: Low Risk, <3 Yes Risk Assessment Category Category 1A: Patient has history of documented sleep apnea, and HAS NOT received any narcotic, sedative or anesthesia administration during this stay. Category 1B: Patient has history of documented sleep apnea, and HAS received any narcotic , sedative or anesthesia administration during this stay Category 2: Patient has SUSPECTED Obstructive Sleep Apnea, and HAS received any narcotic , sedative or anesthesia administration during this stay. Category 3: Patient has SUSPECTED Obstructive Sleep Apnea and HAS NOT received narcotic, sedative or anesthesia administration during this stay. Category 4: Outpatient in Procedural Areas with known sleep apnea or who screen positive for High Risk via the STOP/BANG questionnaire. Exam Exam Vital Signs Vital Signs Date Time Temp Pulse Resp B/P Pulse Ox O2 Delivery O2 Flow Rate FiO2 09/02/16 06:12 36.0 99 18 131/71 100 Room Air General Appearance: Alert, Oriented X3, Cooperative, No Acute Distress HEENT/AIRWAY: MP 2 Lungs: Clear to Auscultation, Normal Air Movement Heart: Exam Unremarkable, No Murmurs/Rubs/Gallops, Other (Irreg irreg) Meds/Labs/Diagnostics Admission Meds Current Medications Lactated Ringer's (Lr) 1,000 ml @ 120 mls/hr Q8H20M IV Last administered on t 05:53; Start 09/02/16 at 05:00; Stop 09/02/16 at 13:19 Plan Impression Patient chart reviewed, patient interviewed and anesthestic plan with risks, benefits, and alternatives discussed, and informed consent obtained. NPO per Anesth. Guidelines: Yes ASA Physical Status: ASA3 Severe Disease Anesthetic Plan: GA Bene/Risks/Altern/Consents: Yes HP Complete Prior to Induction: Yes Rodrigo Bacon MD September 02, 2016 07:24
[2016-09-02] MEDS ORDERED: Lactated Ringer's 1,000 ML IV SCH (07:49)
[2016-09-02] MEDS ORDERED: Lactated Ringer's 500 ML IV PRN (07:49)
[2016-09-02] MEDS ORDERED: Atropine 0.4 mg/mL Inj IVPUSH PRN (07:50)
[2016-09-02] MEDS ORDERED: Labetalol 5 mg/mL 4 mL Inj IV PRN (07:50)
[2016-09-02] MEDS ORDERED: MetoCLOpramide 5 mg/mL 2 mL Inj IVPUSH PRN (07:50)
[2016-09-02] MEDS ORDERED: Dexamethasone 4 mg/mL Inj IVPUSH PRN (07:50)
[2016-09-02] MEDS ORDERED: Ondansetron 2 mg/mL 2 mL Inj IVPUSH PRN (07:50)
[2016-09-02] MEDS ORDERED: HYDROmorphone 1 mg/mL Inj IVPUSH PRN (07:50)
[2016-09-02] MEDS ORDERED: hydrALAZINE 20 mg/mL Inj IVPUSH PRN (07:50)
[2016-09-02] MEDS ORDERED: fentaNYL-PF 50 mCg/mL 2 mL Inj IVPUSH PRN (07:50)
[2016-09-02] MEDS ORDERED: EPHEDrine Sulfate 50 mg/mL Inj IVPUSH PRN (07:50)
[2016-09-02] MEDS ORDERED: Phenylephrine 10,000 mCg/mL Inj IVPUSH PRN (07:50)
[2016-09-02] MEDS ORDERED: Bupivacaine-MPF 0.5% W/EPI 30 mL Inj INFILTRATE ONE (08:01)
[2016-09-02] MEDS ORDERED: Diltiazem 5 mg/mL 5 mL Inj IVPUSH STA (08:38)
--- NOTE | 2016-09-02 09:36 | PCM.ANEP1 ---
Post Anesthesia Phase 1 PACU Phase 1 Assessment Date of Service: September 02, 2016 Vital Signs Vital Signs Date Time Temp Pulse Resp B/P Pulse Ox O2 Delivery O2 Flow Rate FiO2 09/02/16 09:25 76 16 112/63 100 Nasal Cannula 3 09/02/16 09:10 79 12 121/54 100 Nasal Cannula 3 09/02/16 09:05 36.5 78 9 111/53 100 Nasal Cannula 3 09/02/16 09:00 83 10 113/53 100 Nasal Cannula 3 09/02/16 08:55 84 11 104/54 100 Nasal Cannula 3 09/02/16 08:52 87 17 93/44 100 Nasal Cannula 3 09/02/16 08:50 144 16 85/41 100 Nasal Cannula 3 09/02/16 08:45 110 18 94/70 98 Nasal Cannula 3 09/02/16 08:40 148 12 100/65 100 Nasal Cannula 3 09/02/16 08:38 36.4 137 15 110/82 94 Room Air 09/02/16 06:12 36.0 99 18 131/71 100 Room Air Anesthetic Administered: GA Level of Alertness: Awake, talking OLIVERA's with Equal Strength: Yes Pain: No Nausea or Vomiting: No Cardiovascular Function and Hy: Yes Oxygen Delivery: Room Air Lungs: Clear to Auscultation, Normal Air Movement Summary Patient tolerated procedure well, but went into RVR (baseline a-fib) on emergence. No response to esmolol. In PACU rate controlled with diltiazem one dose. Complications: No Follow up Care: No Patient Instructions Provided: Yes Rodrigo Bacon MD September 02, 2016 09:36
--- NOTE | 2016-09-02 16:07 | OP ---
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 PROCEDURE PERFORMED: Transanal biopsy of rectal mass. SURGEON: Leanne Owen M.D. PREOPERATIVE DIAGNOSIS(ES): POSTOPERATIVE DIAGNOSIS(ES): HISTORY OF PRESENT ILLNESS: This is an 86-year-old woman who had anemia and a colonoscopy showed a rectal mass. The biopsy showed a complex villous adenoma with extensive high-grade dysplasia with areas highly suspicious for invasive adenocarcinoma. To complete her staging, transanal biopsy was recommended for further pathologic investigation. FINDINGS: There was a 3 cm firm serrated mass at the right anterolateral position, 1 cm proximal to the dentate line. The region was biopsied. DESCRIPTION OF PROCEDURE: The patient was brought to the operating room and placed in the supine position. General anesthesia was induced. A warming blanket and SCDs were placed. She was repositioned in the high lithotomy position. The operative field was prepped and draped in a sterile fashion. A pause was performed to confirm the correct patient, procedure, site and side. A digital rectal examination was performed and confirmed the mass at the right anterolateral position. A retractor was introduced and a 3-0 chromic stitch was placed proximal to the mass. The mass was firm, and had the physical findings consistent with invasion. A biopsy was performed of the superficial aspect of the mass and the defect was closed with 3-0 chromic. Hemostasis was achieved with sutures and electrocautery. 10 mL of local anesthetic was infused in the subcutaneous tissues around the perianal region. Gel-Foam was inserted for additional hemostasis. The patient was awakened from general anesthesia and taken to the postoperative care unit in good condition. SPECIMENS: Right antral lateral rectal mass, 1 cm proximal to the dentate line. COMPLICATIONS: None. ESTIMATED BLOOD LOSS: 300 mL.
--- NOTE | 2016-09-05 14:51 | PATH ---
SURGICAL PATHOLOGY Attending Physician:Leanne Owen MD CASE STATUS: Signed Out PATIENT NAME: GURWINDER BONE PID: [id number] : 1930 DATE COLLECTED:09/02/2016 15:32 SPECIMEN: Rectum, Biopsy CLINICAL HISTORY: RECTAL POLYP 1. RIGHT ANTERIOLATERAL RECTAL POLYP FINAL DIAGNOSIS: 1.BIOPSY, RIGHT ANTERIOLATERAL RECTAL POLYP: INVASIVE ADENOCARCINOMA, MODERATELY DIFFERENTIATED. ICD10 code C20 NOTE: The results of this evaluation are telephoned to the office of Dr. Leanne Owen at 10:05 on 09/05/16. As part of a routine head of quality, Dr. Parish Sierra has also reviewed this case and agrees with the diagnosis. GROSS DESCRIPTION: The specimen is received in one formalin filled container labeled with the patient's name, sublabeled "right anteriolateral rectal polyp" and consists of multiple portions of tissue which aggregate to 2.0 x 1.5 x 0.7 CM. The smallest portions are entirely submitted in cassette A. The 2 largest pieces are sectioned into multiple pieces and entirely submitted in cassettes B,C. 09/02/2016 DAC MICRO DESCRIPTION: See diagnosis. ICD-9 CODES: CPT CODES: 1: 07517, 13988, 68185(3) PROCEDURE/ADDENDA: Immunohistochemistry SPI Interpretation No loss of nuclear expression of MMR proteins: low probability of microsatellite instability-high (MSI-H).* Results-Comments This addendum is issued to report the results of immunohistochemistry. The final diagnosis is unchanged. IMMUNOHISTOCHEMISTRY TESTING FOR MISMATCH REPAIR PROTEINS: MLH1: Intact nuclear expression. MSH2: Intact nuclear expression. MSH6: Intact nuclear expression. PMS2: Intact nuclear expression. Background nonneoplastic tissue/internal control with intact nuclear expression. * There are exceptions to the above IHC interpretations. These results should not be considered in isolation, and clinical correlation with genetic counseling is recommended to assess the need for germline testing. Testing performed on block 1A. * This test was developed and its performance characteristics determined by [employer]. It has not been cleared or approved by the U.S. Food and Drug Administration. The FDA has determined that such clearance or approval is not necessary. This test is used for clinical purposes. It should not be regarded as investigational or for research. Electronically Signed Out Jackie Merida MD Electronically Signed Out Mehrdad Snowden MD [facility] [address], [place] [address] Technical component performed at [facility], [address], [place], [address]
== END 2016-09-02 23:59 | disposition home or self-care (01) ==
LOC: SAS 05:50
PROVIDERS: ATTEND Surgery
PROC: 0DBP7ZX Excision of Rectum, Via Natural or Artificial Opening, Diagnostic (ICD-10-PCS; principal; 2016-09-02 07:30)
DX: C20 Malignant neoplasm of rectum (principal); R13.19 Other dysphagia; I25.10 Atherosclerotic heart disease of native coronary artery without angina pectoris; I12.9 Hypertensive chronic kidney disease with stage 1 through stage 4 chronic kidney disease, or unspecified chronic kidney disease; N18.9 Chronic kidney disease, unspecified; I48.91 Unspecified atrial fibrillation; E03.9 Hypothyroidism, unspecified; Z95.1 Presence of aortocoronary bypass graft; Z95.5 Presence of coronary angioplasty implant and graft; Z90.49 Acquired absence of other specified parts of digestive tract; Z87.891 Personal history of nicotine dependence
CPT/HCPCS: 45100; J2370; J2405; J3010; J7120

== ENCOUNTER 2016-09-03 12:24 | Emergency (ER) | payer MEDICARE, OTHER ==
[2016-09-03 12:44] VITALS: BP 102/65; PULSE 77; RESP 16; O2SAT 99
[2016-09-03 12:57] LABS: BASOPHILS % (AUTO) 0.1 % (0-3); EOSINOPHILS % (AUTO) 1.3 % (0-5); MONOCYTES % (AUTO) 7.4 % (4-12); Mean Corpuscular Hemoglobin 30.5 pg (27.0-35.0); Mean Corpuscular Volume 95.4 fL (81-100); NEUTROPHILS % (AUTO) 77.3 % (40-74); Platelet Count 91 bil/L (150-400)
[2016-09-03 15:44] VITALS: BP 102/65; PULSE 77; RESP 16; O2SAT 99
--- NOTE | 2016-09-04 02:09 | CONS ---
[address] [address] CONSULTATION REPORT PATIENT: GURWINDER BONE : 1930 MR#: [id number] ADMIT: 09/03/2016 JOB ID: [id number] DATE OF SERVICE: 09/03/2016 HISTORY OF PRESENT ILLNESS: The patient called me on the phone because of rectal bleeding. She is one day postop rectal polyp biopsy just above the dentate line, by Dr. Owen. She reported that she passed a fair amount of blood in her bowel movements as well as staining through the pad and her clothes. This morning, she was noted to being slightly lightheaded when she stood up in the parking lot after calling and being told to come to our ED. PHYSICAL EXAMINATION: Vital signs are stable, nonorthostatic. No active bleeding per rectum. Hematocrit 24.7. IMPRESSION/PLAN: The patient had some postop bleeding at home but it has stopped in the emergency department. We have monitored her for just over 3 hours and there has been no further bleeding. Her hematocrit is 24.7, which is low, but is comparable to other measurements in the past two years. We have reviewed the option of staying in the hospital for observation or simply returning if bleeding resumes. Given the option, she would prefer to go home, and she has reliable transportation back.
== END 2016-09-03 14:36 | disposition home or self-care (01) ==
LOC: SED 12:24
DX: R58 Hemorrhage, not elsewhere classified (principal)

== ENCOUNTER 2016-09-21 13:34 | Day surgery (SDC) | payer MEDICARE, OTHER ==
[2016-09-21] VITALS (8 sets, daily range): BP systolic 114–145; BP diastolic 60–87; PULSE 66–83; RESP 16; O2SAT 97–100
[~2016-09-21] VITALS: Ht 158.8 cm; Wt 53.3 kg
--- NOTE | 2016-09-21 13:27 | PCM.HPANE ---
Patient Data Date of Service: September 21, 2016 Surgeon Admitting Provider: Attending Provider:Leanne Owen MD Primary Care Physician:Bishnu Pagan DO Other Provider:Raina Yeager Anesthesia Reason for Visit Rectal Cancer Ht/WT & BMI Height (Feet): 5 Height (Inches): 2 Weight (Kilograms): 55.34 Body Mass Index 22.00 Allergies Coded Allergies: atenolol (Verified Allergy, Severe, shortness of breath and angina, ) able to take tenormin prednisone (Verified Allergy, Severe, hallucinations,dementia, 09/21/16) pregabalin (Verified Allergy, Severe, all side effects listed, 09/21/16) abciximab (Verified Allergy, Intermediate, rash, 09/21/16) Past Anesthesia History Anesthesia History: Denies:: Anesthesia Reactions, Fam Anesthesia Reaction, Fam Malignant Hypertherm, Malignant Hyperthermia Diabetes History Hx Diabetes?: No MRSA MRSA: No Medications Hypertension Medication: Yes (RAMIPRIL) Home Meds Incl Beta Jorgito: Yes (TENORMIN) Reported Medications Multivit-Min/Iron Fum/Folic AC (Scfpc-Rfjzdiv-Mgqyzfsi Tablet)7.5 Mg Iron-400 Mcg Tablet1 Each PO DAILY 07/21/16 Hydrocodone-Acetaminophen 5-325 mg 1 Each Tablet1 Tablet PO Q8HRS PRN For Pain Ref 0 07/21/16 Furosemide 40 Mg Sfdkzt76 Mg PO DAILY 07/21/16 Cyanocobalamin (Vitamin B-12) (Vitamin B-12)1,000 Mcg Bjgwqu910 Mcg PO DAILY 07/01/16 Atenolol (Tenormin)25 Mg Kybkym40.5 Mg PO BID 30 Days Ref 0 07/01/16 Ramipril 5 Mg Capsule5 Mg PO DAILY 07/01/16 Potassium Chloride ER 10 Meq Vyquha27 Meq PO DAILY Ref 0 TAKE WITH FOOD 07/01/16 Atorvastatin (Lipitor)10 Mg Tab10 Mg PO HS Ref 0 07/01/16 Levothyroxine 50 Mcg Cqubgb40 Mcg PO QAM Ref 0 07/01/16 Ranitidine 150 Mg Dvqqvvf244 Mg PO BIDWM Ref 0 07/01/16 Ondansetron 4 Mg Tablet4 Mg PO Q8H PRN For Nausea/Vomiting 07/01/16 History History of ENT Problems?: Yes HEENT History: Positive for:: Cataracts (bilateral) Dysphagia (can only swallow liquids-puree- crushing meds with difficulty) Denies:: Hearing Problem Denture Type: None Teeth Condition: Within Normal Limits Other HEENT Pertinent History: PLANNING ESOPHAGEAL DILATION @ [facility] IN NEAR FUTURE Hx of Heart Problems?: Yes Cardiovascular History: Positive for:: Atrial Fibrillation (current not on thinners) Cardiac Surgery (S/P HEART CATH/STENTS, CABG) Chest Pain (HX OF ANGINA) Edema (LE edema, chronic) Hypertension (HYPERLIPIDEMIA) Irregular Heartbeat (afib) 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) Denies:: AICD Congestive Heart Failure Heart Murmur (ECHO 06/2016 EF 50-55%) Pacemaker Thrombophlebitis Other Cardiac History: HX OF ANEMIA Hx of Respiratory Problem?: Yes Respiratory History: Positive for:: Dyspnea (can not walk flight stairs ) Denies:: Asthma COPD Emphysema Oxygen Administration Pneumonia Tuberculosis Use of C-PAP Machine Hx Neurologic Problems?: No Neurological History: Denies:: CVA Headaches Multiple Sclerosis Parkinson's Disease Seizures Hx of GI Problems?: Yes Other GI Pertinent History: RECTAL CA/IV ACCESS=CURRENT PROBLEM Hx of Problems?: Yes Genitourinary History: Denies:: HX of Hemodialysis (HX CHRONIC RENAL INSUFFICIENCY) Kidney Stones Urinary Tract Infection Female Hx: Positive for:: Problems with Breasts? (benign bx) Denies:: Currently Endometriosis Pelvic Inflammatory (s/p hysterectomy) Skin History: Denies:: History Skin Disorders? Pressure Ulcers Hx Musculoskeletal Problems?: No Musculoskeletal History: Denies:: Back Injury Degenerative Joint Joint Replacement Musculoskeletal Trauma Hx of Psycho/Social Problems?: No Hx Surgeries?: Yes (HYST,CABG,HEART CATH/STENTS,EXC RECTAL POLYP) Hx Any Other Health Problems?: Yes Other History: Positive for:: Cancer (RECTAL CA) Hospitalization Thyroid Disease Denies:: Endocrine Disease History Blood Transfusions: Positive for:: Blood Transfusions Denies:: Blood Transfuse Reaction Hx Diabetes: No Hx Alcohol Use: No (''rarely"- a glass of wine/month)Hx Substance Use: No Smoking Status: Former Smoker Have You Smoked inLast 12 mo: No Stop/Bang Treated for Sleep Apnea?: No Do You Have a CPAP Machine?: No S-Snoring: Do You Snore Loudly: No T-Tired: feel tired, fatigued: Yes O-Obsered: Observed not breath: No P-Blood Pressure: treated: Yes B- Body Mass Index > 35 kg/m2: No A- Age over 50: Yes N- Neck Large Circumference: No G- Gender Male: No ASHWINI Total Score: 3 ASHWINI Risk Assessment: Low Risk, <3 Yes Risk Assessment Category Category 1A: Patient has history of documented sleep apnea, and HAS NOT received any narcotic, sedative or anesthesia administration during this stay. Category 1B: Patient has history of documented sleep apnea, and HAS received any narcotic , sedative or anesthesia administration during this stay Category 2: Patient has SUSPECTED Obstructive Sleep Apnea, and HAS received any narcotic , sedative or anesthesia administration during this stay. Category 3: Patient has SUSPECTED Obstructive Sleep Apnea and HAS NOT received narcotic, sedative or anesthesia administration during this stay. Category 4: Outpatient in Procedural Areas with known sleep apnea or who screen positive for High Risk via the STOP/BANG questionnaire. Exam Exam General Appearance: Alert, Oriented X3, Cooperative, No Acute Distress HEENT/AIRWAY: MP 2 Lungs: Clear to Auscultation, Normal Air Movement Heart: Exam Unremarkable, Other (irregular (afib)) Plan Impression Patient chart reviewed, patient interviewed and anesthestic plan with risks, benefits, and alternatives discussed, and informed consent obtained. NPO per Anesth. Guidelines: Yes ASA Physical Status: ASA2 Mod Systemic Disease Anesthetic Plan: GA Bene/Risks/Altern/Consents: Yes HP Complete Prior to Induction: Yes Jp Sharpe MD September 21, 2016 13:27
[~2016-09-21 13:34] MED LIST changes: +CeFAZolin Inj 2,000 MG in Dextrose 5%-Pha MIX 50 ML IV SCH
[2016-09-21] MEDS ORDERED: Propofol 10,000 mCg/mL 20 mL Inj ONE (13:35)
[2016-09-21] MEDS: Lactated Ringer's 1,000 ML IV SCH ×2 (13:42→16:48)
[2016-09-21] MEDS ORDERED: CeFAZolin Inj 2 gm / 50mL D5W IV ONE (14:06)
[2016-09-21] MEDS ORDERED: Bupivacaine-MPF 0.25% 30 mL Inj INFILTRATE ONE (16:00)
[2016-09-21] MEDS ORDERED: HepLOK Flush 100 unit/mL 5 mL Inj IVFLUSH ONE (16:03)
[2016-09-21] MEDS ORDERED: oxyCODONE-Acetamin 5-325 mg Tablet PO PRN (17:45)
--- NOTE | 2016-09-21 17:46 | PCM.SURGOP ---
Surgical Operative Report Date of Service: September 21, 2016 Pre Operative Diagnosis Rectal cancer Post Operative Diagnosis Rectal cancer Procedure: Right internal jugular vein PowerPort placement with ultrasound guidance, with interpretation; with fluoroscopic guidance, with the interpretation Surgeon and Parachute Rigger: Surgeon: Leanne Owen MD Assistants: MOHAN Jin Indication for Procedure This is an 86-year-old woman with multiple medical comorbidities who presented with anemia and was found to have a low rectal cancer, 1 cm proximal to the anal verge. She did not desire surgery due to her age and other medical issues. Chemoradiation was recommended, and therefore port placement was scheduled. Findings: The port tip was in the right atrium at the end of the procedure. The port aspirated and flushed easily. It was flushed with 10 mL of heparin solution, 100U/mL, at the end of the case. Procedure Details The patient was brought to the operating room and placed in supine position. General anesthesia with a LMA was smoothly induced. Antibiotics were infused. A warming blanket and SCDs were placed. The operative field was prepped and draped in sterile fashion. A pause was performed to confirm the correct patient , procedure, site, and side. The right internal jugular vein was identified with the ultrasound. It was then accessed with a single stick, and a wire was threaded. Fluoroscopy confirmed the wires presence on the right side of the heart. The position of the tip of the wire at the cavoatrial junction was measured. A pocket was made in the tissue overlying the right pectoralis. The port was inserted and sewn into place with two interrupted Prolene stitches. It was then tunneled to the site of the wire using a small counter incision. The port catheter was then cut to the appropriate size as previously measured by the wires position on fluoroscopy. Dilation was then performed under fluoroscopic guidance. The sheath was left in place and the catheter was inserted. The sheath was removed and the two sides were found to be completely intact. The tip of the port was found to be positioned in the right atrium on fluoroscopy. The catheter was not kinked on fluoroscopy. The port aspirated and flushed easily at the end of the case. It was infused with 10 mL of 100 units/mL heparin solution. The subcutaneous tissue overlying the port was closed with a 3-0 Vicryl stitch. The skin at the port site, the wire access site, and counter incision was closed with a 4-0 subcuticular Monocryl stitch. Marcaine 0.5% with epinephrine was injected in the skin overlying the port as well as the stick site. A sterile dressing was placed. The patient tolerated the procedure well, and was awakened from general anesthesia and taken to the postoperative care unit in good condition. Complications There were no periprocedural complications identified. Surgical Specimen Removed: No Specimen sent to Pathology: No Anesthetic Plan: GA Grafts, Implants: Implants-See Implant Record Output, Estimated Blood Loss: 5 (ml) Blood Administration during reyna: No Leanne Owen MD September 21, 2016 17:46
[2016-09-21] MEDS ORDERED: Lactated Ringer's 1,000 ML IV SCH (17:52)
[2016-09-21] MEDS ORDERED: Lactated Ringer's 500 ML IV PRN (17:52)
[2016-09-21] MEDS ORDERED: fentaNYL-PF 50 mCg/mL 2 mL Inj IVPUSH PRN (17:55)
[2016-09-21] MEDS ORDERED: Dexamethasone 4 mg/mL Inj IVPUSH PRN (17:55)
[2016-09-21] MEDS ORDERED: Labetalol 5 mg/mL 4 mL Inj IV PRN (17:55)
[2016-09-21] MEDS ORDERED: Ondansetron 2 mg/mL 2 mL Inj IVPUSH PRN (17:55)
[2016-09-21] MEDS ORDERED: Phenylephrine 10,000 mCg/mL Inj IVPUSH PRN (17:55)
--- NOTE | 2016-09-21 18:35 | PCM.ANEP1 ---
Post Anesthesia PACU Phase 1 Assessment Vital Signs Vital Signs Date Time Temp Pulse Resp B/P Pulse Ox O2 Delivery O2 Flow Rate FiO2 09/21/16 18:25 36.4 66 16 114/60 98 Room Air 09/21/16 18:10 36.1 78 16 145/77 99 Room Air 09/21/16 18:05 72 16 137/87 100 Room Air 09/21/16 18:00 73 16 138/70 100 Room Air 09/21/16 17:55 73 16 126/67 97 Room Air 09/21/16 17:50 74 16 121/61 97 Room Air 09/21/16 17:45 36.5 70 16 116/65 97 Room Air 09/21/16 14:05 36.6 83 16 127/84 99 Room Air Anesthetic Administered: GA Level of Alertness: Awake, talking OLIVERA's with Equal Strength: Yes Pain: No Nausea or Vomiting: No CV Function & Hydration Stable: Yes Airway Device: Oxygen Delivery: Room Air Lungs: Clear to Auscultation, Normal Air Movement Dermatome Level: Full Sensation PACU Phase 2 Assessment Complications: No Follow up Care: No Patient Instructions Provided: N/A Jp Sharpe MD September 21, 2016 18:35
== END 2016-09-21 23:59 | disposition home or self-care (01) ==
LOC: SAS 13:34
PROVIDERS: ATTEND Surgery
DX: C20 Malignant neoplasm of rectum (principal); I48.91 Unspecified atrial fibrillation; D64.9 Anemia, unspecified; I10 Essential (primary) hypertension; E78.00 Pure hypercholesterolemia, unspecified; E07.9 Disorder of thyroid, unspecified; I38 Endocarditis, valve unspecified; Z95.1 Presence of aortocoronary bypass graft; Z95.5 Presence of coronary angioplasty implant and graft; Z87.891 Personal history of nicotine dependence
CPT/HCPCS: 36561; 77001; C1788; J0690; J1642; J7120